=== PATIENT | female | born 1945 | race Caucasian/White ===

== ENCOUNTER → 2016-10-05 | Outpatient (CLI) | payer OTHER ==
[~2016-10-05] MED LIST: ALBUAER INH; ASPCH81X PO; ATOR-24 PO; ATOR-26 PO; ATV/1 PO; CALC600T9 PO; CHOL100010 PO; CYCL10TA6 PO; DICL1GEL12 EXT; EPP3/2 IM; GLUC10007 PO; IBUP-103 PO; LISI-461 PO; LISI-725 PO; MELO15TA10 PO; MULTTAB5 PO; ZNTT/150 PO
[2016-10-05 11:32] LABS: BLOOD UREA NITROGEN 24 mg/dl (7-18); CARBON DIOXIDE 28 mmol/L (21-32); CHLORIDE 104 mmol/L (98-107); CREATININE 0.89 mg/dl (0.60-1.20); GLUCOSE 107 mg/dl (70-99); POTASSIUM 4.1 mmol/L (3.5-5.1); SODIUM 139 mmol/L (136-145)
[2016-10-05 11:37] LABS: ESTIMATED AVERAGE GLUCOSE 114 mg/dl; HA1C FLAG Normal (Normal)
[2016-10-05 11:41] LABS: CALCIUM 9.7 mg/dl (8.5-10.1)
[2016-10-05 11:53] LABS: ALKALINE PHOSPHATASE 96 U/L (45-117); ALT/SGPT 34 U/L (12-78); AST/SGOT 22 U/L (15-37); CHOLESTEROL 175 mg/dl (0-200); CHOLESTEROL/HDL RATIO 2.1; HDL CHOLESTEROL 85 mg/dl; LDL CHOLESTEROL CALCULATED 70 mg/dl; TRIGLYCERIDES 101 mg/dl (0-150); VERY LOW DENSITY LIPOPROT CALC 20 mg/dl
== END | disposition home or self-care (01) ==
LOC: C.LABPBG 09:25
PROVIDERS: ATTEND Internal Medicine
DX: E78.5 Hyperlipidemia, unspecified (principal); R73.01 Impaired fasting glucose; I10 Essential (primary) hypertension; E66.01 Morbid (severe) obesity due to excess calories

== ENCOUNTER → 2016-12-01 | Outpatient (CLI) | payer OTHER | END | disposition home or self-care (01) | LOC: C.LABPBG 11:28 | PROVIDERS: ATTEND Physician Assistant Medical | DX: M79.676 Pain in unspecified toe(s) (principal) ==

== ENCOUNTER → 2017-04-25 | Day surgery (SDC) | payer OTHER ==
[2017-04-13 12:47] VITALS: Ht 168.9 cm; Wt 114.5 kg
[~2017-04-25] VITALS: Ht 168.9 cm; Wt 114.5 kg
[~2017-04-25] MED LIST changes: -ATOR-26 PO; +FENTANYL CITRATE INJ 50 MCG/1 ML 2 ML VIAL ONE; -GLUC10007 PO; -IBUP-103 PO; +LIDOCAINE HCL 2% 2 ML VIAL (20MG/ML) ONE; -LISI-725 PO; +MIDAZOLAM HCL 1 MG/ML 2ML VIAL ONE; +PROPOFOL IV EMULSION 10 MG/ML 20 ML VIAL IV ONE; +SODIUM CHLORIDE 0.9% 500ML 500 ML IV ONE
--- NOTE | 2017-04-25 13:12 | Endo History and Physical ---
History & Physical Date of Service: Apr 25, 2017. Chief Complaint: Screening Referring Physician: Dr. Bernard History of Present Illness 71 yo CF who presents for screening colonoscopy. Past Surgical History Hx Cardiac Surgery: No Hx Internal Defibrillator: No Hx Pacemaker: No Hx Abdominal Surgery: Yes (JUNIOR) Hx of Implantable Prosthesis: No Hx Post-Op Nausea and Vomiting: No Hx Cancer Surgery: No Hx Thoracic Surgery: No Hx Orthopedic: Yes (RT KNEE ARTHROSCOPY) Hx Urinary Tract Surgery: No Family History None Social History Smoking Status: Never Smoker Hx Substance Use: No Hx Alcohol Use: No Allergies Coded Allergies: BEE STING (Verified Allergy, Unknown, ANAPHYLAXIS, 04/13/17) Influenza Vaccines (Verified Allergy, Unknown, RED/HARD AT SITE, SOB AND DIFF. SWALLOWING, 04/13/17) Oxycodone (Verified Allergy, Unknown, NAUSEA, 04/13/17) Uncoded Allergies: DARVOCET (Allergy, Unknown, SHORTNESS OF BREATH, 10/25/15) Current Medications Reported Home Medications Medications Dose Route/Sig Max Daily Dose Days Date Category Vitamin D (Cholecalciferol) 1,000 Unit Tab 2 Tab PO QAM 04/13/17 Reported Zantac (Ranitidine HCl) 150 Mg Tab 150 Mg PO DAILY PRN 04/13/17 Reported Proventil Hfa (Albuterol Sulfate) 108 Mcg/Act Aer 2 Puff INH BID PRN 04/13/17 Reported Mobic (Meloxicam) 15 Mg Tab 15 Mg PO DAILY PRN 04/13/17 Reported Ativan (Lorazepam) 1 Mg Tab 1 Mg PO DAILY PRN 04/13/17 Reported Zestril (Lisinopril) 10 Mg Tab 10 Mg PO QAM 04/13/17 Reported Epipen (Epinephrine) 0.3 Mg/0.3 Ml Inj 0.3 Mg IM UD 04/13/17 Reported Voltaren 1% Top Gel (Diclofenac Sodium (Topical)) 1 % Gel 1 Dose EXT DIRECTED PRN 04/13/17 Reported Flexeril (Cyclobenzaprine Hcl) 10 Mg Tab 10 Mg PO TID PRN 04/13/17 Reported Calcium + D (Calcium Carbonate-Vitamin D) 1 Tab Tab 1 Tab PO QAM 04/13/17 Reported Lipitor (Atorvastatin Calcium) 40 Mg Tab 40 Mg PO QPM 04/13/17 Reported Aspirin Chewable (Aspirin) 81 Mg Chew 81 Mg PO QAM 04/13/17 Reported Centrum (Multiple Vitamins W/ Minerals) 1 Tab Tab 1 Tab PO QAM 10/25/15 Reported Vital Signs Weight (Kilograms): 114.55 Height (Feet): 5 Height (Inches): 6.5 Physical Exam General Appearance: WD/WN, no apparent distress Respiratory/Chest: Auscultation: breath sounds normal Cardiovascular: Heart Auscultation: RRR Abdomen: Bowel Sounds: normal Inspection & Palpation: soft, non-distended, no tenderness, guarding & rebound Assessment and Plan Assessment: 71 yo CF who presents for screening colonoscopy. Plan: Proceed with colonoscopy.
[2017-04-25 13:18] VITALS: TEMP 36.4
--- NOTE | 2017-04-25 14:04 | Discharge Instructions ---
Endoscopy Patient Instructions Date / Procedure(s) Performed Apr 25, 2017. Colonoscopy Allergy Information Coded Allergies: BEE STING (Verified Allergy, Unknown, ANAPHYLAXIS, 04/13/17) Influenza Vaccines (Verified Allergy, Unknown, RED/HARD AT SITE, SOB AND DIFF. SWALLOWING, 04/13/17) Oxycodone (Verified Allergy, Unknown, NAUSEA, 04/13/17) Uncoded Allergies: DARVOCET (Allergy, Unknown, SHORTNESS OF BREATH, 10/25/15) Discharge Date / Findings Apr 25, 2017. Internal hemorrhoids Medication Instructions Stopped Medication(s): ASA, vitamins OK to resume all medications today as prescribed Reported Home Medications Medications Dose Route/Sig Max Daily Dose Days Date Category Vitamin D (Cholecalciferol) 1,000 Unit Tab 2 Tab PO QAM 04/13/17 Reported Zantac (Ranitidine HCl) 150 Mg Tab 150 Mg PO DAILY PRN 04/13/17 Reported Proventil Hfa (Albuterol Sulfate) 108 Mcg/Act Aer 2 Puff INH BID PRN 04/13/17 Reported Mobic (Meloxicam) 15 Mg Tab 15 Mg PO DAILY PRN 04/13/17 Reported Ativan (Lorazepam) 1 Mg Tab 1 Mg PO DAILY PRN 04/13/17 Reported Zestril (Lisinopril) 10 Mg Tab 10 Mg PO QAM 04/13/17 Reported Epipen (Epinephrine) 0.3 Mg/0.3 Ml Inj 0.3 Mg IM UD 04/13/17 Reported Voltaren 1% Top Gel (Diclofenac Sodium (Topical)) 1 % Gel 1 Dose EXT DIRECTED PRN 04/13/17 Reported Flexeril (Cyclobenzaprine Hcl) 10 Mg Tab 10 Mg PO TID PRN 04/13/17 Reported Calcium + D (Calcium Carbonate-Vitamin D) 1 Tab Tab 1 Tab PO QAM 04/13/17 Reported Lipitor (Atorvastatin Calcium) 40 Mg Tab 40 Mg PO QPM 04/13/17 Reported Aspirin Chewable (Aspirin) 81 Mg Chew 81 Mg PO QAM 04/13/17 Reported Centrum (Multiple Vitamins W/ Minerals) 1 Tab Tab 1 Tab PO QAM 10/25/15 Reported Provider Instructions Activity Restrictions - No exercising or heavy lifting for 24 hours. - Do not drink alcohol the day of the procedure. - Do not drive a car or operate machinery until the day after the procedure. - Do not make any important decisions or sign important papers in 24 hours after the procedure. Following Day: - Return to full activity which may include returning to work/school. Diet Start your diet with liquids and light foods (jello, soup, juice, toast). Then eat your usual diet if not nauseated. Treatment For Common After Affects For mild abdominal pain, bloating, or excessive gas: - Rest - Eat lightly - Lie on right side Follow-Up Information Follow-up with Gray Bernard as scheduled Anesthesia Information What You Should Know You have had a procedure that required some medicine to reduce anxiety and discomfort. This treatment is called moderate sedation. After receiving the treatment, you may be sleepy, but you will be able to breathe on your own. The effects of the treatment may last for several hours. Follow these instructions along with Activity/Diet recommendations noted above: * Do NOT do anything where dizziness or clumsiness would be dangerous. * Rest quietly at home today, then you can be up and about tomorrow. * Have a responsible person stay with you the rest of today. * You may have had an I.V. today. If so, you may take the dressing off later today. Recommendations Call your doctor if: * Trouble breathing * Continuous vomiting for more than 24 hours * Temperature above 101 degrees * Severe abdominal pain or bloating * Pain not relieved by pain medicine ordered * There is increased drainage or redness from any incision * A large amount of rectal bleeding greater than 2-3 tablespoons. (If you had a polyp/s removed or have hemorrhoids, a small amount of blood - from the rectum is to be expected.) * You have any unanswered questions or concerns. IN THE EVENT OF A SERIOUS EMERGENCY, GO TO THE NEAREST EMERGENCY ROOM Your discharge instructions were prepared by provider Arnulfo Rodriguez. Patient Instructions Signature Page November Patient (or Guardian) Signature/Date: I have read and understand the instructions given to me by my caregivers. Caregiver/RN/Doctor Signature/Date: The above-named patient and/or guardian has received patient instructions on this date. + Original Patient Signature Page (only) stays with chart. Please make copy for patient.
--- NOTE | 2017-04-25 14:06 | Anesthesiology Progress Note ---
Anesthesia Post Op Note Date & Time Apr 25, 2017 at 14:06 Vital Signs Vital Signs Past 12 Hours Date Time Temp Pulse Resp B/P (MAP) Pulse Ox O2 Delivery O2 Flow Rate FiO2 04/25/17 13:18 36.4 74 18 119/77 (91) 98 Room Air Notes Mental Status: alert / awake / arousable, participated in evaluation Pt Amnestic to Procedure: Yes Nausea / Vomiting: adequately controlled Pain: adequately controlled Airway Patency, RR, SpO2: stable & adequate BP & HR: stable & adequate Hydration State: stable & adequate Anesthetic Complications: no major complications apparent
--- NOTE | 2017-04-25 14:11 | GI REPORT ---
Procedure Date: 04/25/2017 1:12 PM Procedure: Colonoscopy Indications: Screening for colorectal malignant neoplasm Medicines: Monitored Anesthesia Care Complications: No immediate complications. Estimated Blood Loss: Estimated blood loss: none. Procedure: Pre-Anesthesia Assessment: - Prior to the procedure, a History and Physical was performed, and patient medications and allergies were reviewed. The patient's tolerance of previous anesthesia was also reviewed. The risks and benefits of the procedure and the sedation options and risks were discussed with the patient. All questions were answered, and informed consent was obtained. Prior Anticoagulants: The patient has taken aspirin, last dose was 1 day prior to procedure. ASA Grade Assessment: III - A patient with severe systemic disease. After reviewing the risks and benefits, the patient was deemed in satisfactory condition to undergo the procedure. After I obtained informed consent, the scope was passed under direct vision. Throughout the procedure, the patient's blood pressure, pulse, and oxygen saturations were monitored continuously. The scope was introduced through the anus and advanced to the terminal ileum. The colonoscopy was performed without difficulty. The patient tolerated the procedure well. The quality of the bowel preparation was good. The terminal ileum, ileocecal valve, appendiceal orifice, and rectum were photographed. Findings: The perianal and digital rectal examinations were normal. Non-bleeding internal hemorrhoids were found during retroflexion. The hemorrhoids were small. Impression: - Non-bleeding internal hemorrhoids. - No specimens collected. Recommendation: - Resume previous diet. - Continue present medications. - No repeat colonoscopy due to age and the absence of advanced adenomas. - Return to primary care physician as previously scheduled. Arnulfo Rodriguez, 04/25/2017 2:10:49 PM This report has been signed electronically. Note Initiated On: 04/25/2017 1:12 PM I attest to the content of the Intraoperative Record and orders documented therein, exceptions below
[2017-04-25 14:31] VITALS: BP 117/73; PULSE 72; O2SAT 98
== END | disposition home or self-care (01) ==
LOC: C.GI 12:46
PROVIDERS: ATTEND Internal Medicine
DX: Z12.11 Encounter for screening for malignant neoplasm of colon (principal); K64.8 Other hemorrhoids; I10 Essential (primary) hypertension; F41.9 Anxiety disorder, unspecified; E66.9 Obesity, unspecified; Z68.41 Body mass index [BMI] 40.0-44.9, adult; Z88.5 Allergy status to narcotic agent; Z90.49 Acquired absence of other specified parts of digestive tract; Z88.7 Allergy status to serum and vaccine; Z79.899 Other long term (current) drug therapy; Z79.82 Long term (current) use of aspirin; Z98.42 Cataract extraction status, left eye

== ENCOUNTER → 2017-05-14 | Outpatient (CLI) | payer OTHER ==
[~2017-05-14] MED LIST changes: -FENTANYL CITRATE INJ 50 MCG/1 ML 2 ML VIAL ONE; -LIDOCAINE HCL 2% 2 ML VIAL (20MG/ML) ONE; -MIDAZOLAM HCL 1 MG/ML 2ML VIAL ONE; -PROPOFOL IV EMULSION 10 MG/ML 20 ML VIAL IV ONE; -SODIUM CHLORIDE 0.9% 500ML 500 ML IV ONE
[2017-05-14 13:00] LABS: ESTIMATED AVERAGE GLUCOSE 111 mg/dl; HA1C FLAG Normal (Normal)
[2017-05-14 17:54] LABS: ALT/SGPT 19 U/L (12-78); BLOOD UREA NITROGEN 18 mg/dl (7-18); BUN/CREATININE RATIO 24.7 (10-20); CALCIUM 9.2 mg/dl (8.5-10.1); CARBON DIOXIDE 29 mmol/L (21-32); CHLORIDE 105 mmol/L (98-107); CHOLESTEROL 184 mg/dl (0-200); CREATININE 0.72 mg/dl (0.60-1.20); GLUCOSE 89 mg/dl (70-99); POTASSIUM 4.1 mmol/L (3.5-5.1); SODIUM 139 mmol/L (136-145)
[2017-05-14 17:57] LABS: ALB/GLOB RATIO 0.9 (0.9-2); ALKALINE PHOSPHATASE 86 U/L (45-117); AST/SGOT 15 U/L (15-37); CHOLESTEROL/HDL RATIO 2.4; HDL CHOLESTEROL 77 mg/dl; LDL CHOLESTEROL CALCULATED 90 mg/dl; TRIGLYCERIDES 85 mg/dl (0-150); VERY LOW DENSITY LIPOPROT CALC 17 mg/dl
== END | disposition home or self-care (01) ==
LOC: C.LABPBG 10:53
PROVIDERS: ATTEND Internal Medicine
DX: E55.9 Vitamin D deficiency, unspecified (principal); R73.01 Impaired fasting glucose; E78.5 Hyperlipidemia, unspecified

== ENCOUNTER → 2017-07-25 | Outpatient (CLI) | payer OTHER ==
[~2017-07-25] MED LIST changes: +RANI150T85 PO; -ZNTT/150 PO
[2017-07-25 13:18] LABS: BLOOD UREA NITROGEN 21 mg/dl (7-18); CREATININE 0.75 mg/dl (0.60-1.20)
== END | disposition home or self-care (01) ==
LOC: C.LABPBG 10:19
PROVIDERS: ATTEND Internal Medicine
DX: R73.01 Impaired fasting glucose (principal); I10 Essential (primary) hypertension

== ENCOUNTER 2017-10-02 11:17 | Inpatient (IN) | payer OTHER ==
[~2017-10-02] VITALS: Ht 170.2 cm; Wt 116.2 kg
[2017-10-02] MEDS ORDERED: ASPIRIN 81 MG CHEW PO STA ×2 (11:36→13:41)
--- NOTE | 2017-10-02 11:46 | EMERGENCY ROOM VISIT NOTE ---
History Report prepared by Vianey: Patricio Amezcua Under the Supervision of: Dr. Angel Pérez M.D. First contact with patient: 11:29 Chief Complaint: STROKE SYMPTOMS Stated Complaint: NUMBNESS TO FACE AND HAND History of Present Illness The patient is a 71 year old female who presents to the Emergency Room with complaints of persistent though improving stroke symptoms starting this morning around 0930 (2 hours ago). The patient states that she has been having numbness on the right side of her face and numbness and tingling in her right fingers. She denies any numbness in her right leg or weakness in her right arm or leg. The patient additionally notes that for the past few days she has been getting dizzy while laying down or turning her head too quickly. Her family notes that the patient has not had any noticeable facial droop or speech difficulties. The patient notes that she took her blood pressure medication this morning, and she also took a muscle relaxer before the symptoms started. The patient states that she is not on any blood thinners other than a baby aspirin daily. She notes that she has lost a little bit of weight recently, so her blood pressure and cholesterol medications have been decreased. Source of History: patient Onset: 0930 Position: finger(s) (right side), other (right face) Quality: numbness Timing: other (persistent but improving) Associated Symptoms: No weakness Note: Associated symptoms: Dizziness and tingling in her fingers. Review of Systems See HPI for pertinent positives & negatives. A total of 10 systems reviewed and were otherwise negative. Past Medical & Surgical Medical Problems: (1) Melanoma (2) Right facial numbness (3) Sciatica Social History Smoking Status: Former Smoker Marital Status: Housing Status: lives with family Occupation Status: retired Current/Historical Medications Scheduled Atorvastatin (Lipitor), 40 MG PO QPM Calcium Carbonate-Vitamin D (Calcium + D), 1 TAB PO QAM Cholecalciferol (Vitamin D), 2 TAB PO QAM Clopidogrel Bisulfate (Clopidogrel), 75 MG PO QAM Epinephrine (Epipen), 0.3 MG IM UD Multiple Vitamins W/ Minerals (Centrum), 1 TAB PO QAM Scheduled PRN Diclofenac Sodium (Topical) (Voltaren 1% Top Gel), 1 DOSE EXT DIRECTED PRN for Pain Lorazepam (Ativan), 1 MG PO DAILY PRN for Anxiety Meclizine HCl (Meclizine HCl), 12.5-25 MG PO Q6H PRN for vertigo/dizziness Meloxicam (Mobic), 15 MG PO DAILY PRN for Pain Allergies Coded Allergies: BEE STING (Verified Allergy, Unknown, ANAPHYLAXIS, 04/13/17) Influenza Vaccines (Verified Allergy, Unknown, RED/HARD AT SITE, SOB AND DIFF. SWALLOWING, 04/13/17) Oxycodone (Verified Allergy, Unknown, NAUSEA, 04/13/17) Propoxyphene (Verified Allergy, Unknown, SHORTNESS OF BREATH, 10/02/17) Physical Exam Vital Signs Date Time Temp Pulse Resp B/P (MAP) Pulse Ox O2 Delivery O2 Flow Rate FiO2 10/02/17 13:27 66 18 142/75 96 Room Air 10/02/17 12:30 65 20 133/75 98 Room Air 10/02/17 12:11 74 20 130/76 95 Room Air 10/02/17 11:54 98 Room Air 10/02/17 11:40 74 10/02/17 11:22 36.7 74 20 184/114 92 Room Air Physical Exam GENERAL: Patient is in no acute distress. HEENT: No acute trauma, normocephalic atraumatic, mucous membranes moist, no nasal congestion, no scleral icterus. NECK: No stridor, no adenopathy, no meningismus, trachea is midline. LUNGS: Clear to auscultation bilaterally, no wheeze, no rhonchi, breath sounds equal. HEART: Subtle systolic murmur. Regular rate and rhythm, ABDOMEN: Soft, nontender, bowel sounds positive, no hernias, no peritonitis. EXTREMITIES: No cyanosis or edema, full range of motion of all the joints without pain or difficulty, no signs for acute trauma. NEUROLOGIC: Oriented x 3, no acute motor or sensory deficits, no focal weakness. No facial droop or speech slur. No pronator drift or cerebellar dysfunction. SKIN: No rash, no jaundice, no diaphoresis. Medical Decision & Procedures ER Provider Diagnostic Interpretation: Radiology results as stated below per my review and radiologist interpretation: CT OF THE HEAD WITHOUT CONTRAST CLINICAL HISTORY: Stroke. Facial and hand numbness. COMPARISON STUDY: No previous studies for comparison. CT DOSE: 569.73 mGy.cm TECHNIQUE: Helical axial images of the head were obtained without IV contrast. Automated exposure control was utilized for the study. A dose lowering technique was utilized adhering to the principles of ALARA. FINDINGS: No acute intracranial hemorrhage, midline shift or mass effect is present. Ventricular system is normal. Basilar cisterns are patent. There are no extra-axial collections. There are no findings to suggest acute dural sinus thrombosis or acute territorial infarct. Scattered white matter hypodensities favor small vessel disease. There are no significant calvarial abnormalities. Visualized portions of the sinuses and mastoid air cells are clear. IMPRESSION: No acute intracranial findings. Electronically signed by: Morris Myers M.D. 10/02/2017 12:09 PM Dictated Date/Time: 10/02/2017 12:06 PM CHEST ONE VIEW PORTABLE CLINICAL HISTORY: Stroke mental status change COMPARISON STUDY: No previous studies for comparison. FINDINGS: The bones soft tissues and hemidiaphragms are normal. The cardiomediastinal silhouette is normal. The lungs are clear. The pulmonary vasculature is normal. IMPRESSION: Negative chest. The above report was generated using voice recognition software. It may contain grammatical, syntax or spelling errors. Electronically signed by: Alfred Latham M.D. 10/02/2017 12:00 PM Dictated Date/Time: 10/02/2017 12:00 PM Laboratory Results Test 10/02/17 11:50 10/02/17 12:54 Erythrocyte Sedimentation Rate 33 mm/hr (0-21) Prothrombin Time 10.3 SECONDS (9.0-12.0) Prothromb Time International Ratio 1.0 (0.9-1.1) Activated Partial Thromboplast Time 27.6 SECONDS (21.0-31.0) Partial Thromboplastin Ratio 1.1 Troponin I < 0.015 ng/ml (0-0.045) C-Reactive Protein < 0.29 mg/dl (0-0.29) Urine Color YELLOW Urine Appearance CLEAR (CLEAR) Urine pH 5.0 (4.5-7.5) Urine Specific [place] 1.018 (1.000-1.030) Urine Protein NEG (NEG) Urine Glucose (UA) NEG (NEG) Urine Ketones NEG (NEG) Urine Occult Blood NEG (NEG) Urine Nitrite NEG (NEG) Urine Bilirubin NEG (NEG) Urine Urobilinogen NEG (NEG) Urine Leukocyte Esterase MODERATE (NEG) Urine WBC (Auto) 1-5 /hpf (0-5) Urine RBC (Auto) 0-4 /hpf (0-4) Urine Hyaline Casts (Auto) 0 /lpf (0-5) Urine Epithelial Cells (Auto) 10-20 /lpf (0-5) Urine Bacteria (Auto) NEG (NEG) Urine Opiates Screen NEG (NEG) Urine Methadone, Qualitative NEG (NEG) Urine Barbiturates NEG (NEG) Urine Phencyclidine (PCP) Level NEG (NEG) Ur Amphetamine/Methamphetamine NEG (NEG) MDMA (Ecstasy) Screen NEG (NEG) Urine Benzodiazepines Screen NEG (NEG) Urine Cocaine Metabolite NEG (NEG) Urine Marijuana (THC) NEG (NEG) Laboratory results reviewed by me. Medications Administered Medications (Trade) Dose Ordered Sig/Allison Route Start Time Stop Time Status Last Admin Dose Admin Aspirin (Aspirin Chew) 324 mg NOW STAT PO 10/02/17 11:36 10/02/17 11:38 DC 10/02/17 12:12 324 MG Lorazepam (Ativan Tab) 1 mg DAILY PRN PO 10/02/17 13:45 11/01/17 13:44 10/02/17 21:28 1 MG ECG Per My Interpretation Indication: other (stroke like symptoms) Rate (beats per minute): 74 Rhythm: normal sinus Findings: no ectopy, other (No ST elevation, baseline artifact, no PVC) ED Course 1129: The patient was evaluated in room C10. A complete history and physical exam was performed. 1136: Aspirin 324mg PO 1229: Discussed the patient's case with Dr. Aaliyah Barboza - [facility] Hospitalist. The patient will be evaluated for further management. 1235: I reevaluated the patient, and she was doing fine and has no symptoms. She will be evaluated for further management by the hospitalist. Medical Decision Differential diagnoses include: TIA, stroke, intracranial bleeding, medication reaction, electrolyte imbalance, anemia, and infection. There is no leukocytosis or concerning anemia. No significant electrolyte abnormality or kidney failure. EKG shows a sinus rhythm, no acute ischemia. Cardiac enzyme testing 1 is not consistent with acute cardiac injury. Brain CT shows no acute bleed or mass-effect. Chest x-ray does not show pneumonia or CHF. There is no coagulopathy. On exam, the patient had no focal neurologic deficits. She complained of minimal numbness to her right face and right fingers-the symptoms had markedly improved. Patient was given oral aspirin. She has done well here in the ED. She has had no recurrence of symptoms, no worsening of symptoms. The patient requires a hospital stay. I am concerned for TIA as the cause for her symptoms. A stroke workup is warranted. She is not a TPA candidate as her symptoms have markedly improved and as she has no findings on exam. I did speak with the patient and case management. The on-call hospitalist was consulted. Medication Reconcilliation Current Medication List: was personally reviewed by me Blood Pressure Screening Patient's blood pressure: Elevated blood pressure Monitored by the hospitalist Consults Time Called: 1222 Consulting Physician: Dr. Aaliyah SPARROW Hospitalist Returned Call: 1229 Discussed the patient's case with Dr. Aaliyah SPARROW Hospitalist. The patient will be evaluated for further management. Impression Primary Impression: Stroke-like symptoms Scribe Attestation The scribe's documentation has been prepared under my direction and personally reviewed by me in its entirety. I confirm that the note above accurately reflects all work, treatment, procedures, and medical decision making performed by me. Departure Information Dispostion Being Evaluated By Hospitalist Prescriptions Clopidogrel Bisulfate (Clopidogrel) 75 Mg Tab 75 MG PO QAM, #30 TAB 11 Refills Prov: Jero Camejo MD 10/04/17 Meclizine HCl (Meclizine HCl) 25 Mg Tab 12.5-25 MG PO Q6H Y for vertigo/dizziness, #30 TAB 0 Refills Prov: Jero Camejo MD 10/04/17 Referrals Gray Bernard M.D. (PCP) Patient Instructions My [facility] Stroke History Time Last Known Well 2 hours ago Stroke t-PA Criteria Reviewed Does NOT meet criteria for t-PA Reason t-PA Not Given Treatment not indicated
--- NOTE | 2017-10-02 12:02 | DIAGNOSTIC IMAGING REPORT ---
CHEST ONE VIEW PORTABLE CLINICAL HISTORY: Stroke mental status change COMPARISON STUDY: No previous studies for comparison. FINDINGS: The bones soft tissues and hemidiaphragms are normal. The cardiomediastinal silhouette is normal. The lungs are clear. The pulmonary vasculature is normal. IMPRESSION: Negative chest. The above report was generated using voice recognition software. It may contain grammatical, syntax or spelling errors. Electronically signed by: Alfred Latham M.D. 10/02/2017 12:00 PM Dictated Date/Time: 10/02/2017 12:00 PM
[2017-10-02 12:03] LABS: BASO % 0.6 %; BASO ABS # 0.03 K/uL (0-0.2); EOS % 2.6 %; EOS ABS # 0.13 K/uL (0-0.5); HEMATOCRIT 44.6 % (37-47); HEMOGLOBIN 14.7 g/dL (12.0-16.0); IG# 0.02 K/uL (0.00-0.02); LYMPH % 33.1 %; LYMPH ABS # 1.68 K/uL (1.2-3.4); MEAN CELL VOLUME 92.7 fL (80-100); MEAN CORPUSCULAR HEMOGLOBIN 30.6 pg (25-34); MEAN PLATELET VOLUME 10.4 fL (7.4-10.4); MONO % 6.3 %; MONO ABS # 0.32 K/uL (0.11-0.59); NEUT ABS # 2.89 K/uL (1.4-6.5); PLATELET COUNT 190 K/uL (130-400); RED CELL DISTRIBUTION WIDTH CV 14.8 % (11.5-14.5); RED CELL DISTRIBUTION WIDTH SD 50.3 fL (36.4-46.3); WHITE BLOOD COUNT 5.07 K/uL (4.8-10.8)
--- NOTE | 2017-10-02 12:10 | DIAGNOSTIC IMAGING REPORT ---
CT OF THE HEAD WITHOUT CONTRAST CLINICAL HISTORY: Stroke. Facial and hand numbness. COMPARISON STUDY: No previous studies for comparison. CT DOSE: 569.73 mGy.cm TECHNIQUE: Helical axial images of the head were obtained without IV contrast. Automated exposure control was utilized for the study. A dose lowering technique was utilized adhering to the principles of ALARA. FINDINGS: No acute intracranial hemorrhage, midline shift or mass effect is present. Ventricular system is normal. Basilar cisterns are patent. There are no extra-axial collections. There are no findings to suggest acute dural sinus thrombosis or acute territorial infarct. Scattered white matter hypodensities favor small vessel disease. There are no significant calvarial abnormalities. Visualized portions of the sinuses and mastoid air cells are clear. IMPRESSION: No acute intracranial findings. Electronically signed by: Morris Myers M.D. 10/02/2017 12:09 PM Dictated Date/Time: 10/02/2017 12:06 PM
[2017-10-02 12:13] LABS: PTT PATIENT 27.6 SECONDS (21.0-31.0)
[2017-10-02 12:18] LABS: BLOOD UREA NITROGEN 21 mg/dl (7-18); CALCIUM 9.1 mg/dl (8.5-10.1); CARBON DIOXIDE 27 mmol/L (21-32); CREATININE 0.82 mg/dl (0.60-1.20); GLUCOSE 97 mg/dl (70-99); POTASSIUM 4.2 mmol/L (3.5-5.1); SODIUM 139 mmol/L (136-145)
[2017-10-02] MEDS ORDERED: ACETAMINOPHEN 325 MG TAB PO PRN (13:45)
[2017-10-02] MEDS ORDERED: EPINEPHRINE ADULT AUTO-INJECT 0.3 MG SYR IM SCH (13:45)
[2017-10-02] MEDS ORDERED: PHARMACIST DISCHARGE MED REC CONSULT PRN (13:45)
[2017-10-02] MEDS ORDERED: ALUMINUM/MAGNESIUM/SIMETH (MAALOX MAX) 30 ML UDC PO PRN (13:45)
[2017-10-02] MEDS ORDERED: ZOLPIDEM TARTRATE 5 MG TAB PO PRN ×2 (13:45)
[2017-10-02] MEDS ORDERED: LORAZEPAM 1 MG TAB PO PRN (13:45)
[2017-10-02] MEDS ORDERED: MAGNESIUM HYDROXIDE SUSP 30 ML UDC PO PRN (13:45)
[2017-10-02] MEDS ORDERED: POLYETHYLENE (MIRALAX) 17 GM PACK PO PRN (13:45)
[2017-10-02] MEDS ORDERED: ONDANSETRON INJ 2 MG/ML 2 ML VIAL IV PRN (13:45)
--- NOTE | 2017-10-02 14:34 | History and Physical ---
History & Physical Date & Time of Service: Oct 02, 2017 at 14:24 Chief Complaint: Numbness To Face And Hand Primary Care Physician: Gray Bernard M.D. 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 Patient stated that within the last few days she has been having intermittent dizziness. As per patient had dizzy spells mainly happen when she moves her head quickly from one position to another especially while she is laying down in bed. At 9 AM today patient experienced numbness on the right lower part of her face. Associated with tingling in her right-hand fingers. Patient called her daughter who is a nurse here at our facility [facility] who advised her to come to the hospital for further evaluation. After presenting to the hospital her symptoms significantly improved. Blood pressure was elevated on arrival, 184/114 But neurologic symptoms improved. Denies any palpitation chest pain or shortness of breath. She denies any slurred speech or focal weakness. Patient does have dyslipidemia and hypertension, before today they were controlled on medications she also has Melanoblastoma in her right eye and she gets Injections every 6 weeks. As per patient there is no metastasis and she gets frequent MRIs for her chest and abdomen for surveillance. Past Medical/Surgical History Medical Problems: (1) Acute sciatica (2) Melanoma (3) Neural foraminal stenosis of lumbar spine (4) Right facial numbness (5) Sciatica Social History Smoking Status: Former Smoker Marital Status: Occupational Status: retired Allergies Coded Allergies: BEE STING (Verified Allergy, Unknown, ANAPHYLAXIS, 04/13/17) Influenza Vaccines (Verified Allergy, Unknown, RED/HARD AT SITE, SOB AND DIFF. SWALLOWING, 04/13/17) Oxycodone (Verified Allergy, Unknown, NAUSEA, 04/13/17) Uncoded Allergies: DARVOCET (Allergy, Unknown, SHORTNESS OF BREATH, 10/25/15) Home Medications Scheduled Aspirin (Aspirin Chewable), 81 MG PO QAM Atorvastatin (Lipitor), 40 MG PO QPM Calcium Carbonate-Vitamin D (Calcium + D), 1 TAB PO QAM Cholecalciferol (Vitamin D), 2 TAB PO QAM Epinephrine (Epipen), 0.3 MG IM UD Lisinopril (Zestril), 10 MG PO QAM Multiple Vitamins W/ Minerals (Centrum), 1 TAB PO QAM Scheduled PRN Diclofenac Sodium (Topical) (Voltaren 1% Top Gel), 1 DOSE EXT DIRECTED PRN for Pain Lorazepam (Ativan), 1 MG PO DAILY PRN for Anxiety Meloxicam (Mobic), 15 MG PO DAILY PRN for Pain Review of Systems Review of system Constitutional: No fever / no chills / no sweats / no weakness / no fatigue Eyes: no blurring of vision / no eye pain / no discharge / no redness ENT: no hearing loss / no epistaxis /no swallowing problems Respiratory: no cough / no wheezing / no SOB / no hemoptysis Cardiovascular: no Chest pain / no lower extremity edema / no palpitation Abdomen: no pain / no nausea / no vomiting / no constipation Musculoskeletal: no joint pain / no muscle pain / no joint swelling Genitourinary: no dysuria / no incontinence / no urinary retention Neurologic: no focal weakness /right side of the face and right hand numbness/ tingling / no ataxia Psychiatric: no depression symptoms / no anxiety / no insomnia Endocrine: no excessive thirst / no excessive urination Hematologic: no abnormal bleeding / no bruising / no LN swelling Skin: No rash / no pallor Physical Exam Vital Signs Date Time Temp Pulse Resp B/P (MAP) Pulse Ox O2 Delivery O2 Flow Rate FiO2 10/02/17 13:27 66 18 142/75 96 Room Air 10/02/17 12:30 65 20 133/75 98 Room Air 10/02/17 12:11 74 20 130/76 95 Room Air 10/02/17 11:54 98 Room Air 10/02/17 11:40 74 10/02/17 11:22 36.7 74 20 184/114 92 Room Air Physical examination General patient appears to be comfortable, not in acute distress HEENT: Atraumatic , normocephalic /no jaundice /no pallor /anicteric /no dry mucous membrane /normal external ear inspection Neck: Supple /no swelling /central trach Heart: S1/S2 normal/regular rate and rhythm/no gallop /no rub /no murmur Lungs: Clear to auscultation bilaterally/normal chest with expansion/no rhonchi/ no rales/no wheezing/no use of accessory muscles of respiration Abdomen: Soft/nontender/no guarding/no rebound/no organomegaly/no pulsatile mass Musculoskeletal: No swelling/no edema/no tenderness/normal range of motion Neuro exam: Awake alert oriented 3/cranial nerves II through XII appear to be intact/sensation intact/moves all extremities/no abnormal movements Psychiatric evaluation: No depressed mood/normal affect Skin: No rash on exposed skin area/no erythema Extremity: Normal pulse/no pitting edema/no clubbing or cyanosis Endocrine/lymphatic: No obvious lymphadenopathy /no lymphedema Diagnostics Laboratory Results Results Past 24 Hours Test 10/02/17 11:50 10/02/17 12:54 10/02/17 13:41 Range/Units White Blood Count 5.07 4.8-10.8 K/uL Red Blood Count 4.81 4.2-5.4 M/uL Hemoglobin 14.7 12.0-16.0 g/dL Hematocrit 44.6 37-47 % Mean Corpuscular Volume 92.7 80-100 fL Mean Corpuscular Hemoglobin 30.6 25-34 pg Mean Corpuscular Hemoglobin Concent 33.0 32-36 g/dl Platelet Count 190 130-400 K/uL Mean Platelet Volume 10.4 7.4-10.4 fL Neutrophils (%) (Auto) 57.0 % Lymphocytes (%) (Auto) 33.1 % Monocytes (%) (Auto) 6.3 % Eosinophils (%) (Auto) 2.6 % Basophils (%) (Auto) 0.6 % Neutrophils # (Auto) 2.89 1.4-6.5 K/uL Lymphocytes # (Auto) 1.68 1.2-3.4 K/uL Monocytes # (Auto) 0.32 0.11-0.59 K/uL Eosinophils # (Auto) 0.13 0-0.5 K/uL Basophils # (Auto) 0.03 0-0.2 K/uL RDW Standard Deviation 50.3 36.4-46.3 fL RDW Coefficient of Variation 14.8 11.5-14.5 % Immature Granulocyte % (Auto) 0.4 % Immature Granulocyte # (Auto) 0.02 0.00-0.02 K/uL Erythrocyte Sedimentation Rate 33 0-21 mm/hr Prothrombin Time 10.3 9.0-12.0 SECONDS Prothromb Time International Ratio 1.0 0.9-1.1 Activated Partial Thromboplast Time 27.6 21.0-31.0 SECONDS Partial Thromboplastin Ratio 1.1 Sodium Level 139 136-145 mmol/L Potassium Level 4.2 3.5-5.1 mmol/L Chloride Level 108 98-107 mmol/L Carbon Dioxide Level 27 21-32 mmol/L Anion Gap 3.0 3-11 mmol/L Blood Urea Nitrogen 21 7-18 mg/dl Creatinine 0.82 0.60-1.20 mg/dl Est Creatinine Clear Calc Drug Dose 84.7 ml/min Estimated GFR () 84.0 Estimated GFR (Non- 72.5 BUN/Creatinine Ratio 25.0 10-20 Random Glucose 97 70-99 mg/dl Calcium Level 9.1 8.5-10.1 mg/dl Magnesium Level 1.8 1.8-2.4 mg/dl Troponin I < 0.015 0-0.045 ng/ml Urine Color YELLOW Urine Appearance CLEAR CLEAR Urine pH 5.0 4.5-7.5 Urine Specific Lejunior 1.018 1.000-1.030 Urine Protein NEG NEG Urine Glucose (UA) NEG NEG Urine Ketones NEG NEG Urine Occult Blood NEG NEG Urine Nitrite NEG NEG Urine Bilirubin NEG NEG Urine Urobilinogen NEG NEG Urine Leukocyte Esterase MODERATE NEG Urine WBC (Auto) 1-5 0-5 /hpf Urine RBC (Auto) 0-4 0-4 /hpf Urine Hyaline Casts (Auto) 0 0-5 /lpf Urine Epithelial Cells (Auto) 10-20 0-5 /lpf Urine Bacteria (Auto) NEG NEG Urine Opiates Screen NEG NEG Urine Methadone, Qualitative NEG NEG Urine Barbiturates NEG NEG Urine Phencyclidine (PCP) Level NEG NEG Ur Amphetamine/Methamphetamine NEG NEG MDMA (Ecstasy) Screen NEG NEG Urine Benzodiazepines Screen NEG NEG Urine Cocaine Metabolite NEG NEG Urine Marijuana (THC) NEG NEG Impression Assessment and Plan 71 years old female with past medical history of hypertension, dyslipidemia and 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 Assessment: Hypertensive urgency Right-sided numbness/tingling, possible minor stroke Dyslipidemia Obesity due to caloric intake Neuroblastoma of right eye Plan Admit patient to telemetry Continue home meds except blood pressure medications for permissive hypertension , hold blood pressure medications MRA neck 2D echo with bubble study Empiric aspirin/statin MRI/MRA of the brain Consult neurologist as needed Check lipids and hemoglobin A1c to stratify patient's risk factors Heparin for DVT prophylaxis Resuscitation Status VTE Prophylaxis Will order VTE Prophylaxis: Yes
[2017-10-02] MEDS: SODIUM CHLORIDE 0.9% 1000ML 1,000 ML IV SCH (15:27)
[2017-10-02 15:28] VITALS: BP 135/82; PULSE 67; O2SAT 98; Ht 170.2 cm; Wt 116.2 kg
[2017-10-02 16:00] VITALS: O2SAT 98
[2017-10-02] MEDS: ENOXAPARIN 40 MG/0.4 ML SYR SC SCH (16:29)
[2017-10-02 19:28] VITALS: BP 116/73; PULSE 69; TEMP 36.6; O2SAT 97
[2017-10-02] MEDS: ATORVASTATIN 40 MG TAB PO SCH (19:57)
[2017-10-02 20:00] VITALS: O2SAT 98
--- NOTE | 2017-10-02 22:15 | DIAGNOSTIC IMAGING REPORT ---
MR ANGIOGRAPHY OF THE [place] NO CONTRAST CLINICAL HISTORY: Stroke. Right finger numbness. Right lip and jaw numbness. COMPARISON STUDY: None. A 3-D [id number] MR angiographic sequence of the [place] was performed. Both the source and projection images were reviewed. There is no evidence of major intracranial branch occlusion. There is no evidence of intracranial stenosis. There are no lesions suspicious for aneurysm. IMPRESSION: Unremarkable MR angiography of the [place]. Electronically signed by: Nehemiah Turner M.D. 10/02/2017 10:13 PM Dictated Date/Time: 10/02/2017 10:12 PM
--- NOTE | 2017-10-02 22:29 | DIAGNOSTIC IMAGING REPORT ---
MRI OF THE BRAIN WITHOUT CONTRAST CLINICAL HISTORY: Stroke RIGHT FINGER NUMBNESS, RIGHT LIP AND JAW NUMBNESS COMPARISON STUDY: Noncontrast head CT dated 10/06/2017 FINDINGS: Sagittal T1, axial diffusion, proton density and T2 weighted axial, coronal FLAIR, and axial T1-weighted images were acquired. No intra or extra-axial mass lesions are visualized Axial diffusion-weighted images reveal no evidence of acute or subacute infarction. There is no evidence of ventricular dilatation. Proton density T2-weighted and FLAIR images multiple scattered foci of increased T2 signal within the white matter, likely on a small vessel basis. There are no abnormal flow voids. Several sebaceous cysts are visualized within the scalp. There is minor mucosal thickening within the right sphenoid. IMPRESSION: 1. No evidence of acute or subacute infarction 2. Moderate white matter disease, statistically on a small vessel basis given the patient's age. 3. No evidence of intracranial mass on this noncontrast study Electronically signed by: Nehemiah Turner M.D. 10/02/2017 10:28 PM Dictated Date/Time: 10/02/2017 10:25 PM
[2017-10-02] MEDS ORDERED: GADAVIST IV PRN (22:30)
--- NOTE | 2017-10-02 22:45 | DIAGNOSTIC IMAGING REPORT ---
NECK MRA HISTORY: Right finger numbness. Right leg and jaw numbness Stroke TECHNIQUE: [id number] and gadolinium-enhanced MRA of the neck was performed both before and after the intravenous administration of contrast. All measurements were calculated based on NASCET criteria. The patient was injected with 11.5 cc of intravenous Gadavist. COMPARISON STUDY: None. FINDINGS: The aortic arch and proximal great vessels are widely patent. There is no significant stenosis, occlusion, or dissection identified within the bilateral common carotid, internal carotid, or vertebral arteries. IMPRESSION: No significant stenosis, occlusion, or dissection identified within the carotid or vertebral arteries. Electronically signed by: Nehemiah Turner M.D. 10/02/2017 10:44 PM Dictated Date/Time: 10/02/2017 10:42 PM
[2017-10-02 23:38] VITALS: BP 108/57; PULSE 73; TEMP 36.5; O2SAT 96
[2017-10-03] VITALS (13 sets, daily range): BP systolic 110–131; BP diastolic 64–85; PULSE 67–115; TEMP 36.4–36.7; O2SAT 93–97
[2017-10-03] MEDS: SODIUM CHLORIDE 0.9% 1000ML 1,000 ML IV SCH (03:45)
[2017-10-03 06:10] LABS: BASO % 0.8 %; BASO ABS # 0.04 K/uL (0-0.2); EOS % 5.6 %; EOS ABS # 0.27 K/uL (0-0.5); HEMATOCRIT 37.9 % (37-47); HEMOGLOBIN 12.8 g/dL (12.0-16.0); IG# 0.01 K/uL (0.00-0.02); LYMPH % 47.3 %; LYMPH ABS # 2.27 K/uL (1.2-3.4); MEAN CELL VOLUME 91.8 fL (80-100); MEAN CORPUSCULAR HGB CONC 33.8 g/dl (32-36); MEAN PLATELET VOLUME 10.4 fL (7.4-10.4); MONO % 11.9 %; MONO ABS # 0.57 K/uL (0.11-0.59); NEUT % 34.2 %; NEUT ABS # 1.64 K/uL (1.4-6.5); PLATELET COUNT 167 K/uL (130-400); RED CELL DISTRIBUTION WIDTH CV 14.7 % (11.5-14.5); RED CELL DISTRIBUTION WIDTH SD 49.6 fL (36.4-46.3)
[2017-10-03 06:37] LABS: ALBUMIN 2.9 gm/dl (3.4-5.0); CALCIUM 8.4 mg/dl (8.5-10.1); CREATININE 0.7 mg/dl (0.60-1.20); POTASSIUM 4.2 mmol/L (3.5-5.1)
[2017-10-03 06:57] LABS: HEMOGLOBIN A1C 5.3 % (4.5-5.6)
--- NOTE | 2017-10-03 07:41 | Clinical Documentation Query ---
CLINICAL DOCUMENTATION QUERY Dr. PILLAI, In your clinical opinion is this patient being managed for: ( ) morbid obesity with BMI 40.1 ( ) Not Agree ( ) Other explanation of clinical findings (Please Explain. If no explanation given, this would be considered a no response.) ( ) Unable to determine ( ) Need to Discuss (Please call CDS via extension or qliq. If no interaction occurs this is considered a no response.) BMI: A significantly high (>40) or significantly low (<19) BMI will impact the severity of illness and risk of mortality of your patient. However, the physician must document a correlating diagnosis in the medical record. Please clarify and document your clinical opinion in the progress notes and discharge summary. Terms such as "probable", "suspected", "likely", "questionable", "possible", or "still to be ruled out" are acceptable. IF IN AGREEMENT, YOU MUST DOCUMENT ABOVE DIAGNOSTIC STATEMENT IN DAILY PROGRESS NOTES AND DISCHARGE SUMMARY. This document is not part of the patient's record. Thank You, Kathy Perry, RN [phone]
[2017-10-03] MEDS ORDERED: ASPIRIN 325 MG ECTAB PO SCH (09:00)
--- NOTE | 2017-10-03 10:35 | ECHOCARDIOGRAM REPORT ---
*NOTICE TO RECEIVING [employer] This information is strictly Confidential and protected under [place] law. [place] law prohibits you from making any further disclosure of this information unless further disclosure is expressly permitted by the written consent of the person to whom it pertains or is authorized by law. A general authorization for the release of medical or other information is not sufficient for this purpose. Hospital accepts no responsibility if the information is made available to any other person, INCLUDING THE PATIENT. Interpretation Summary * Name: RUMA HAYNES Study Date: 10/02/2017 03:02 PM BP: 121/74 mmHg * Patient Location: [facility] named [facility] HR: 75 * : 1945 (M/d/yyyy) Gender: Female Height: 67 in * Age: 71 yrs Ethnicity: [place] Weight: 259 lb * Ordering Physician: Les London * Referring Physician: Self, Referred * Performed By: Leslie Inman RDCS * * Reason For Study: CEREBRAL ISCHEMIA/EMBOLUS * BSA: 2.3 m2 * No cardiac source of emboli noted. * -- Conclusions -- * There is mild concentric left ventricular hypertrophy. * Left ventricular systolic function is normal. * Grade I diastolic dysfunction, (abnormal relaxation pattern). * The interatrial septum is intact with no evidence for an atrial septal defect. * Right ventricular systolic pressure is normal. Procedure Details * A saline contrast injection was performed to assess for cardiac shunting. * The injection was performed through an intravenous line in the right arm. * The attending nurse who injected the saline contrast was RAVEN RICE. * A total of 20 cc of agitated saline was given. Left Ventricle * The left ventricle is normal in size. * There is mild concentric left ventricular hypertrophy. * Ejection Fraction = 60-65%. * Left ventricular systolic function is normal. * Grade I diastolic dysfunction, (abnormal relaxation pattern). * The left ventricular wall motion is normal. Right Ventricle * The right ventricle is grossly normal size. Atria * The left atrial size is normal. * Right atrial size is normal. * The interatrial septum is intact with no evidence for an atrial septal defect. * Injection of contrast documented no interatrial shunt. Mitral Valve * The mitral valve is grossly normal. * There is no mitral regurgitation noted. Tricuspid Valve * The tricuspid valve is not well visualized, but is grossly normal. * There is trace tricuspid regurgitation. * Right ventricular systolic pressure is normal. Aortic Valve * The aortic valve is normal in structure and function. * No hemodynamically significant valvular aortic stenosis. * There is no significant aortic regurgitation. Great Vessels * The aortic root is normal size. Pericardium/Pleural * There is no pericardial effusion. MMode 2D Measurements and Calculations IVSd 1.3 cm IVSs 1.4 cm LVIDd 2.8 cm LVIDs 1.8 cm LVPWd 1.4 cm LVPWs 1.6 cm IVS/LVPW 0.94 FS 35.1 % EDV(Teich) 29.3 ml ESV(Teich) 9.9 ml EF(Teich) 66.3 % EDV(cubed) 21.7 ml ESV(cubed) 5.9 ml EF(cubed) 72.7 % % IVS thick 5.8 % % LVPW thick 8.7 % LV mass(C)d 126.1 grams LV mass(C)dI 55.9 grams/m\S\2 LV mass(C)s 87.2 grams LV mass(C)sI 38.6 grams/m\S\2 SV(Teich) 19.4 ml SI(Teich) 8.6 ml/m\S\2 SV(cubed) 15.8 ml SI(cubed) 7.0 ml/m\S\2 Ao root diam 3.0 cm Ao root area 6.9 cm\S\2 LA dimension 3.3 cm LA/Ao 1.1 LVAd ap4 25.8 cm\S\2 LVLd ap4 8.4 cm EDV(MOD-sp4) 68.0 ml EDV(sp4-el) 67.6 ml LVAs ap4 13.6 cm\S\2 LVLs ap4 6.6 cm ESV(MOD-sp4) 23.1 ml ESV(sp4-el) 23.9 ml EF(MOD-sp4) 66.1 % EF(sp4-el) 64.7 % LVAd ap2 30.9 cm\S\2 LVLd ap2 8.3 cm EDV(MOD-sp2) 96.9 ml EDV(sp2-el) 97.4 ml LVAs ap2 17.3 cm\S\2 LVLs ap2 7.0 cm ESV(MOD-sp2) 37.1 ml ESV(sp2-el) 36.5 ml EF(MOD-sp2) 61.7 % EF(sp2-el) 62.6 % LVLd %diff -0.64 % EDV(MOD-bp) 81.2 ml LVLs %diff 5.0 % ESV(MOD-bp) 29.3 ml EF(MOD-bp) 63.9 % SV(MOD-sp4) 44.9 ml SI(MOD-sp4) 19.9 ml/m\S\2 SV(MOD-sp2) 59.8 ml SI(MOD-sp2) 26.5 ml/m\S\2 SV(MOD-bp) 51.9 ml SI(MOD-bp) 23.0 ml/m\S\2 SV(sp4-el) 43.7 ml SI(sp4-el) 19.4 ml/m\S\2 SV(sp2-el) 60.9 ml SI(sp2-el) 27.0 ml/m\S\2 Doppler Measurements and Calculations MV E max eitan 80.7 cm/sec MV A max eitan 85.4 cm/sec MV E/A 0.94 MV dec time 0.27 sec Ao V2 max 158.2 cm/sec Ao max PG 10.0 mmHg Ao max PG (full) 4.0 mmHg LV V1 max PG 6.0 mmHg LV V1 max 122.3 cm/sec TR max eitan 238.8 cm/sec
[2017-10-03] MEDS ORDERED: CLOPIDOGREL BISULFATE 75 MG TAB PO ONE (14:30)
[2017-10-03] MEDS: ENOXAPARIN 40 MG/0.4 ML SYR SC SCH (15:47)
[2017-10-03] MEDS: ATORVASTATIN 40 MG TAB PO SCH (20:54)
--- NOTE | 2017-10-03 20:54 | Progress Note ---
Subjective Date of Service: Oct 03, 2017. Subjective Pt evaluation today including: conversation w/ patient, conversation w/ family (daughters at bedside), physical exam, chart review, lab review, review of studies (MRI, MRA head/neck; echo, etc), conversation w/ fashion consultant (neuro), review of inpatient medication list Pain: none reported PO Intake: normal Voiding: no voiding problems no events overnight right facial numbness and numbness of 3 digits of right hand fully resolved reports some intermittent neck pain but none recently denies left arm numbness dizziness is true vertigo and occurs with head movements/sudden standing/etc she has had URI symptoms off/on for 2-3 weeks denies ANY new neuro symptoms Problem List Medical Problems: (1) Stroke-like symptoms Status: Acute Review of Systems Constitutional: No fever ENT: + nasal symptoms Respiratory: No shortness of breath Cardiac: No chest pain Abdomen: No pain Female : No dysuria Neurologic: + vertigo, No memory loss, No paralysis, No weakness, No numbness/ tingling (none today), No balance problems Objective Vital Signs Date Time Temp Pulse Resp B/P (MAP) Pulse Ox O2 Delivery O2 Flow Rate FiO2 10/03/17 19:10 36.6 115 20 113/68 (83) 97 Room Air 10/03/17 18:58 36.7 67 23 113/68 (83) 93 10/03/17 16:00 94 Room Air 10/03/17 15:08 36.7 70 23 131/79 (96) 94 10/03/17 12:24 36.5 73 20 129/85 (100) 95 Room Air 10/03/17 12:00 95 Room Air 10/03/17 08:00 95 Room Air 10/03/17 07:30 36.4 70 20 113/76 (88) 95 Room Air 10/03/17 04:00 96 Room Air 10/03/17 03:43 36.6 67 18 110/64 (79) 96 Room Air 10/03/17 00:00 96 Room Air 10/02/17 23:38 36.5 73 17 108/57 (74) 96 Room Air Physical Exam General Appearance: no apparent distress Eyes: + pertinent finding (no obvious horizontal nystagmus ) ENT: pharynx normal, + pertinent finding (no sinus pain/pressure) Neck: no JVD Respiratory/Chest: lungs clear, no respiratory distress, no accessory muscle use Cardiovascular: regular rate, rhythm, no gallop, no murmur Abdomen: normal bowel sounds, non tender, soft, no organomegaly Extremities: no pedal edema Neurologic/Psychiatric: account coordinator II-XII nml as tested, no motor/sensory deficits, alert, normal mood/affect, oriented x 3, + pertinent finding (no dysmetria w/ [id number] maneuver b/l ) Skin: no rash Laboratory Results Last 24 Hours Test 10/03/17 05:45 White Blood Count 4.80 K/uL Red Blood Count 4.13 M/uL Hemoglobin 12.8 g/dL Hematocrit 37.9 % Mean Corpuscular Volume 91.8 fL Mean Corpuscular Hemoglobin 31.0 pg Mean Corpuscular Hemoglobin Concent 33.8 g/dl Platelet Count 167 K/uL Mean Platelet Volume 10.4 fL Neutrophils (%) (Auto) 34.2 % Lymphocytes (%) (Auto) 47.3 % Monocytes (%) (Auto) 11.9 % Eosinophils (%) (Auto) 5.6 % Basophils (%) (Auto) 0.8 % Neutrophils # (Auto) 1.64 K/uL Lymphocytes # (Auto) 2.27 K/uL Monocytes # (Auto) 0.57 K/uL Eosinophils # (Auto) 0.27 K/uL Basophils # (Auto) 0.04 K/uL RDW Standard Deviation 49.6 fL RDW Coefficient of Variation 14.7 % Immature Granulocyte % (Auto) 0.2 % Immature Granulocyte # (Auto) 0.01 K/uL Sodium Level 140 mmol/L Potassium Level 4.2 mmol/L Chloride Level 110 mmol/L Carbon Dioxide Level 27 mmol/L Anion Gap 4.0 mmol/L Blood Urea Nitrogen 15 mg/dl Creatinine 0.70 mg/dl Est Creatinine Clear Calc Drug Dose 99.2 ml/min Estimated GFR () 101.7 Estimated GFR (Non- 87.8 BUN/Creatinine Ratio 21.6 Random Glucose 87 mg/dl Estimated Average Glucose 105 mg/dl Hemoglobin A1c 5.3 % Calcium Level 8.4 mg/dl Magnesium Level 1.8 mg/dl Total Bilirubin 0.7 mg/dl Aspartate Amino Transf (AST/SGOT) 14 U/L Alanine Aminotransferase (ALT/SGPT) 17 U/L Alkaline Phosphatase 77 U/L Total Protein 6.0 gm/dl Albumin 2.9 gm/dl Globulin 3.1 gm/dl Albumin/Globulin Ratio 0.9 Triglycerides Level 81 mg/dl Cholesterol Level 147 mg/dl HDL Cholesterol 64 mg/dl LDL Cholesterol, Calculated 67 mg/dl VLDL Cholesterol, Calculated 16 mg/dl Cholesterol/HDL Ratio 2.3 Hepatitis C Antibody Screen NEG Assessment and Plan 71yo female with: 1. likely TIA with numbness of right lower face and right hand (3 fingers) - no evidence of stroke process on MRI brain. MRA head/neck neg for vascular disease. Echo w/o source of embolus. Tele w/o a. fib overnight. Lipids controlled. No evidence of T2DM. Since TIA occurred on 81mg of aspirin daily would recommend changing from aspirin to plavix 75mg daily for secondary prevention. Will also arrange outpatient 30-day event monitor to exclude PAF as the potential cause of this event. 2. morbid obesity with BMI 40 - family reports patient has lost 75-100 pounds in the last couple of years; continue weight loss efforts. 3. HTN - controlled. 4. lipids - controlled with current statin. 5. vertigo - has had URI symptoms in the last few weeks; suspect this is a viral process involving the inner ear. Meclizine prn. Nothing on MRI brain to suggest the vertigo is central in origin. 6. await PT, OT evals 7. neurology consult first thing in am likely d/c home tomorrow AM Discharge planning: home
[2017-10-03] MEDS ORDERED: MECLIZINE HCL 12.5 MG TAB PO PRN (21:00)
[2017-10-04 04:38] VITALS: BP 114/68; PULSE 71; TEMP 36.9; O2SAT 96
[2017-10-04 06:34] LABS: CREATININE 0.79 mg/dl (0.60-1.20); POTASSIUM 4.3 mmol/L (3.5-5.1)
[2017-10-04 07:09] VITALS: BP 110/75; PULSE 73; TEMP 36.6; O2SAT 95
[2017-10-04] MEDS ORDERED: CLOPIDOGREL BISULFATE 75 MG TAB PO SCH (09:00)
--- NOTE | 2017-10-04 09:08 | Neurology Consultation ---
Neurology Consultation Date of Consultation: Oct 04, 2017. Attending Physician: Jero Camejo MD Primary Care Physician: Gray Bernard M.D. Reason for Consultation: TIA History of Present Illness Source: patient, hospital records This is a 71-year-old female who presents with transient right lower face and right finger numbness and tingling. She reports that she woke up the morning of presentation in her normal state of health. Around 9 or 930 she started to notice a sudden onset of numbness of her right lower face and tingling of her second through fourth fingers on the right hand. No pain in association. Did have a mild which she considered her normal headache that morning that resolved. She reports that it lasted most of the day and resolved sometime in the evening. She denied any other symptoms. No visual changes. No trouble with her speech or swallowing. No trouble walking. No weakness. No clumsiness of the hand. No chest pain or shortness of breath. No heart palpitations. She reports that for a few days she was having some dizziness with head turning or laying down and had a recent upper respiratory infection which could have contributed. Unrelated the patient does report some ongoing muscular type neck pain with no radicular or radiating quality to it. Patient does normally take daily aspirin. She reports that typically her blood pressure is well controlled but on presentation her blood pressure is 184/114. Echocardiogram noted mild left ventricular hypertrophy and grade 1 diastolic dysfunction likely consistent with history of hypertension MRI of the brain report and images reviewed by myself. The patient had mild to moderate subcortical T2 hyperintensities MRA of the head and neck was unremarkable likely consistent with small vessel ischemic disease. MRA of the head and neck was unremarkable Total cholesterol 147, LDL 67, HDL 64, triglycerides 81, hemoglobin A1c 5.3. Past Medical/Surgical History Medical Problems: (1) Stroke-like symptoms Status: Acute Past medical history significant for hypertension and dyslipidemia. 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 Family History Reports that father had a heart attack at an elderly age. No other family members with stroke or heart attack Social History Patient is . Normally independent her activities of daily living. Daughter is a nurse at the hospital. Denies any tobacco or alcohol use. No illegal drug use. Marital Status: Housing Status: lives with family Occupation Status: retired Allergies Coded Allergies: BEE STING (Verified Allergy, Unknown, ANAPHYLAXIS, 04/13/17) Influenza Vaccines (Verified Allergy, Unknown, RED/HARD AT SITE, SOB AND DIFF. SWALLOWING, 04/13/17) Oxycodone (Verified Allergy, Unknown, NAUSEA, 04/13/17) Propoxyphene (Verified Allergy, Unknown, SHORTNESS OF BREATH, 10/02/17) Current Inpatient Medications Current Inpatient Medications Medications (Trade) Dose Ordered Sig/Allison Route Start Time Stop Time Status Last Admin Dose Admin Atorvastatin Calcium (Lipitor Tab) 40 mg QPM PO 10/02/17 21:00 11/01/17 20:59 10/03/17 20:54 40 MG Lorazepam (Ativan Tab) 1 mg DAILY PRN PO 10/02/17 13:45 11/01/17 13:44 10/02/17 21:28 1 MG Enoxaparin Sodium (Lovenox Inj) 40 mg Q24H SC 10/02/17 16:00 11/01/17 15:59 10/03/17 15:47 40 MG Acetaminophen (Tylenol Tab) 650 mg Q4H PRN PO 10/02/17 13:45 11/01/17 13:44 Al Hydrox/Mg Hydrox/Simethicone (Maalox Max Susp) 15 ml Q4H PRN PO 10/02/17 13:45 11/01/17 13:44 Magnesium Hydroxide (Milk Of Magnesia Susp) 30 ml Q12H PRN PO 10/02/17 13:45 11/01/17 13:44 Zolpidem Tartrate (Ambien Tab) 5 mg HSZ PRN PO 10/02/17 13:45 11/01/17 13:44 Ondansetron HCl (Zofran Inj) 4 mg Q6H PRN IV 10/02/17 13:45 11/01/17 13:44 Polyethylene (Miralax Powder Packet) 17 gm DAILY PRN PO 10/02/17 13:45 11/01/17 13:44 Miscellaneous Information (Pharmacist Discharge Med Rec Consult) 1 ea UD PRN N/A 10/02/17 13:45 11/01/17 13:44 Gadobutrol (Gadavist) 11.5 mmol UD PRN IV 10/02/17 22:30 10/06/17 22:29 Clopidogrel Bisulfate (plAVix TAB) 75 mg QAM PO 10/04/17 09:00 11/03/17 08:59 10/04/17 07:57 75 MG Meclizine HCl (Antivert Tab) 12.5 mg Q6H PRN PO 10/03/17 21:00 11/02/17 20:59 Review of Systems Complete review of systems otherwise negative except for the above-noted in HPI Physical Exam Vital Signs (Past 24 Hrs): Date Time Temp Pulse Resp B/P (MAP) Pulse Ox O2 Delivery O2 Flow Rate FiO2 10/04/17 07:09 36.6 73 19 110/75 (87) 95 Room Air 10/04/17 04:38 36.9 71 17 114/68 (83) 96 Room Air 10/04/17 04:00 Room Air 10/04/17 00:01 Room Air 10/03/17 23:24 36.4 71 18 115/69 (84) 95 Room Air 10/03/17 20:00 97 Room Air 10/03/17 19:10 36.6 115 20 113/68 (83) 97 Room Air 10/03/17 18:58 36.7 67 23 113/68 (83) 93 10/03/17 16:00 94 Room Air 10/03/17 15:08 36.7 70 23 131/79 (96) 94 10/03/17 12:24 36.5 73 20 129/85 (100) 95 Room Air 10/03/17 12:00 95 Room Air Gen.: Patient is alert and oriented in no acute distress lying in bed Heart: Regular rate and rhythm Extremities: No gross deformities or rashes noted Neurological examination: Mental status: Patient is alert and oriented to person place and time. Able to give his own history. Attention concentration normal for the situation. Remote and recent memory intact Speech is fluent without any dysarthria or aphasia noted Cranial nerves: Funduscopic examination was difficult to visualize, but no papilledema. Pupils equally round and reactive to light. Extraocular muscles intact without nystagmus. No facial asymmetry noted. Facial sensation intact. Tongue midline. Good palatal elevation. Good shoulder shrug bilaterally. Hearing grossly intact voice. Strength: 5/5 both proximal and distal in all extremities. No arm drift.Tone is normal. Sensation: Grossly intact to light touch in all extremities Deep tendon reflexes: +1 in bilateral biceps and patellar. Coordination: Patient has good finger to nose without dysmetria. Station within the bed is normal. Laboratory Results Past 24 Hours: 10/04/17 05:27 Test 10/04/17 05:27 Anion Gap 2.0 mmol/L (3-11) Est Creatinine Clear Calc Drug Dose 87.3 ml/min Estimated GFR () 87.9 Estimated GFR (Non- 75.8 BUN/Creatinine Ratio 22.0 (10-20) Calcium Level 9.0 mg/dl (8.5-10.1) Imaging As noted above in HPI Impression This is a 71-year-old female with signs and symptoms concerning for TIA consisting of right lower facial numbness and right hand finger tingling lasting less than 24 hours. Unclear if dizziness/vertigo symptoms are related but may be a separate issue. No residual neurological deficits at this time. Known stroke risk factors include hypertension and dyslipidemia. Plan Agree with changing antiplatelet from aspirin to Plavix for secondary stroke prevention. Agree with 30 day cardiac event monitor to rule out paroxysmal A. fib as this would change her medical management if she did have A. fib. Since the patient's blood pressure has been running recently systolically in the 110's without any blood pressure medication, recommend holding blood pressure medication for now. Encouraged patient to monitor her blood pressure at home daily and if she starts having regular blood pressure above 130's, to follow-up with primary care physician regarding treatment of hypertension. Follow-up PT/OT recommendations for discharge planning. Patient would likely benefit from outpatient physical therapy regarding her muscular type neck pain. Avoid hypotension and dehydration Stroke risk factor modifications and recommendations: Blood pressure recommendations 130/80-110/70 (at goal) Total cholesterol goal 100- 200 and LDL goal less than 100 (at goal) Hemoglobin A1c goal less than 7 (at goal) Encourage cardiovascular exercise at least 3 times a week for 30 minutes. Follow-up in neurology clinic in 1-2 month with our PA for post stroke hospital follow-up and to go over results of monitoring analyst. No neurological barriers to discharge today. Went over stroke signs and symptoms with the patient. If there is any sudden new strokelike symptoms, recommended returning to the emergency room for further evaluation. Thank you for allowing me to participate in this patient's care. If there is any questions or concerns, feel free to call/page me.
[2017-10-04] MEDS ORDERED: PLV75 PO (09:57)
[2017-10-04] MEDS ORDERED: ANT25 PO (09:57)
--- NOTE | 2017-10-04 10:13 | Discharge Instructions ---
Discharge Instructions Date of Service Oct 04, 2017. Admission Reason for Admission: Numbness To Face And Hand Discharge Discharge Diagnosis / Problem: probable "TIA" (transient ischemic attack) Discharge Goals Goal(s): Learn about illness, Diagnostic testing, Therapeutic intervention Activity Recommendations Activity Limitations: as noted below While you are recovering from the vertigo I would recommend taking it easy for the next few days (avoid heavy exertional activities - indoor chores, outdoor chores/work, etc). I would not drive until your vertigo is completely resolved and you are no longer taking the meclizine. . Instructions / Follow-Up Instructions / Follow-Up From Dr. Camejo - 1. You were treated for a "TIA" (transient ischemic attack) while hospitalized. This is NOT the same thing as a stroke; however, it is a known risk factor for a future stroke event. TIA is a temporary neurological symptom that resolves on its own. Your risk factors for TIA include history of high blood pressure and high cholesterol. Your "TIA" work-up was completely normal. The last test we want to complete is the 30-day event monitor. This will be mailed to your home with instructions on its use. The results will go to your primary care doctor. We are looking for a. fib, an irregular heart rhythm that increases a person's chances of TIA or stroke. At this time we are recommending that you STOP your aspirin and in its place start PLAVIX 75mg once daily. Hopefully the plavix will prevent any future TIA or stroke event. 2. The vertigo is likely coming from an inner ear infection from a recent viral infection. This is typically self-limited over the course of a few days. Use caution with sudden head movements, etc. You may take the meclizine, 12.5 (up to 25mg if needed) every 6 hours as needed for vertigo/dizziness. 3. The plavix and meclizine were called in to [facility] for you. 4. During your stay your blood pressures were actually on the low end of normal WITHOUT any blood pressure medication. Because of your recent weight loss you may not need your blood pressure medication any longer. Please STOP your lisinopril at this time and follow-up next week with Dr. Bernard. 5. Lastly, with respect to your neck issues, please follow-up with Dr. Bernard for this. You may take tylenol and/or meloxicam as previously prescribed for the discomfort. Try some heat as well. 6. Risk Factors for Stroke and "TIA": You can reduce your chances of stroke by working with your medical provider to adopt a healthy lifestyle. Some specific ways to lower your chance of stroke are: * If you are a smoker, now is the time to stop smoking cigarettes * If you are diabetic, improve the control of your blood sugars * Avoid excessive amounts of alcohol * Control high blood pressure * Lose weight if you are overweight * Be sure to lead an active lifestyle * Eat a healthy diet low in salt, cholesterol and fat You should know about other risk factors for stroke that you are unable to control. These include: * Age 55 years or older * Male gender * Certain racial groups: , or / * Family History of Stroke, Mini stroke or Heart Attack * Sickle Cell Disease Follow-up - Please see Dr. Bernard as scheduled. Return to [facility] if - * you develop recurrent numbness/tingling of any limb, your face, etc * you develop difficulty with moving your arms or legs * you develop speech difficulty or trouble swallowing * you have trouble with your balance * any other concerns Current Hospital Diet Patient's current hospital diet: Regular Diet Discharge Diet Recommended Diet: AHA Diet (Heart Healthy) Procedures Procedures Performed: MRI brain - no evidence of stroke. MRA head & neck - blood vessels in the head/neck were completely normal. echocardiogram - normal heart function. CAT scan of the brain - normal. No study showed any evidence of sinus infection. Pending Studies Studies pending at discharge: no Laboratory Results Hemoglobin A1c Test 10/03/17 05:45 Range/Units Estimated Average Glucose 105 mg/dl Hemoglobin A1c 5.3 4.5-5.6 % Lipid Panel Test 10/03/17 05:45 Range/Units Triglycerides Level 81 0-150 mg/dl Cholesterol Level 147 0-200 mg/dl HDL Cholesterol 64 mg/dl Cholesterol/HDL Ratio 2.3 LDL Cholesterol, Calculated 67 mg/dl Medical Emergencies . Who to Call and When: Medical Emergencies: Call 911 immediately if you experience any of the following warning signs and symptoms of Stroke: * Sudden numbness or weakness of the face, arm or leg, especially on one side of the body * Sudden confusion, trouble speaking or understanding * Sudden trouble seeing in one or both eyes * Sudden trouble walking, dizziness, loss of balance or coordination * Sudden severe headache with no cause Do not delay calling 911 if you experience any warning signs or symptoms of a stroke. Delay in seeking medical attention may affect what treatments can be given to you. . Non-Emergent Contact Non-Emergency issues call your: Primary Care Provider Call Non-Emergent contact if: temperature is above 100.5, you have any medication questions . . "Provider Documentation" section prepared by Jero Camejo. . Stroke Core Measures Reason no t-PA for Stroke: Treatment not indicated Reason no antithrom by day 2: Treatment provided - N/A Reason no antithrom at D/C: Treatment provided - N/A Reason no statin at D/C: Treatment provided - N/A Reason no anticoag w/a fib: Treatment not indicated
[2017-10-04 10:28] VITALS: BP 110/75; PULSE 73; TEMP 36.6; O2SAT 95
--- NOTE | 2017-10-04 11:13 | Pharmacy Progress Note ---
Pharmacist Stroke Counseling Date of Service Oct 04, 2017. Scope Pharmacy has been consulted to provide medication discharge counseling for this patient admitted with transient ischemic attack as per the Pharmacist Discharge Counseling for Stroke Patients Protocol. Action The above medications, specifically ones for stroke treatment/prophylaxis, have been reviewed in detail with the patient and/or patient customer assistance representative(s) prior to discharge. This includes indication, common adverse reactions, drug interactions, and medication administration. Medication counseling has been employed using the teach-back method to ensure understanding. Outcome The patient have demonstrated understanding of the medications. Please note, they are aware that the pharmacist will call them within 72 hours post-discharge to confirm that the appropriate medications are being taken and answer any further medication related questions the patient might have at that time. Contact information Individual to be contacted: November Relationship to patient : self Phone number: [phone] Best time to call: late morning Additional comments: * It was a pleasure to talk with Karlene. She asked if any of her medication could cause hair loss. It is unlikely that her current medication is causing alopecia. Other possible causes of alopecia could include hypothyroidism and drastic changes in diet. * Looking further into it, ~1% of patients experience alopecia with lisinopril. That medication has been discontinued from her med list. On follow up call, please let her know that there is a small chance the lisinopril could have caused her alopecia. Thank you for allowing pharmacy to be involved in the care of this patient. Please call [phone] or [phone] with any additional questions
--- NOTE | 2017-10-05 13:38 | Pharmacy Progress Note ---
Pharmacist Post D/C Phone Note Date of phone call: Oct 05, 2017. Individual with whom pharmacist spoke to: Patient The following questions were reviewed during the phone call with responses listed below each: Can you tell me the medications that you are currently taking as well as when and how you take each medication? - Medications Dose Route/Sig Max Daily Dose Days Date Category Clopidogrel (Clopidogrel Bisulfate) 75 Mg Tab 75 Mg PO QAM 10/04/17 Rx Meclizine HCl 25 Mg Tab 12.5-25 Mg PO Q6H PRN 10/04/17 Rx Vitamin D (Cholecalciferol) 1,000 Unit Tab 2 Tab PO QAM 04/13/17 Reported Mobic (Meloxicam) 15 Mg Tab 15 Mg PO DAILY PRN 04/13/17 Reported Ativan (Lorazepam) 1 Mg Tab 1 Mg PO DAILY PRN 04/13/17 Reported Epipen (Epinephrine) 0.3 Mg/0.3 Ml Inj 0.3 Mg IM UD 04/13/17 Reported Voltaren 1% Top Gel (Diclofenac Sodium (Topical)) 1 % Gel 1 Dose EXT DIRECTED PRN 04/13/17 Reported Calcium + D (Calcium Carbonate-Vitamin D) 1 Tab Tab 1 Tab PO QAM 04/13/17 Reported Lipitor (Atorvastatin Calcium) 40 Mg Tab 40 Mg PO QPM 04/13/17 Reported Centrum (Multiple Vitamins W/ Minerals) 1 Tab Tab 1 Tab PO QAM 10/25/15 Reported When have you missed any doses of your medications? - No What side effects are you having from your medications? - none What questions do you have about your medications? - none What problems are you having obtaining your medications? - none When is your next appointment with your primary care doctor? - May 2nd Additional comments: - no additional comments or concerns. Pt is tolerating meclizine very well- not feeling dizzy. As per the Pharmacist Discharge Counseling for Stroke Patients Protocol, this phone call has been completed within 72 hours of discharge. Thank you for allowing us to be involved in the care of this patient.
--- NOTE | 2017-10-07 20:49 | Discharge Summary ---
Discharge Summary Date of Service Oct 07, 2017. Discharge Summary Admission Date: Oct 02, 2017 at 13:47 Discharge Date: Oct 04, 2017 Discharge Disposition: Home Principal Diagnosis: TIA Problems/Secondary Diagnoses: 1. acute vertigo - likely viral induced labrynthitis 2. h/o hypertension - resolved with weight loss 3. hyperlipidemia 4. morbid obesity - BMI 40 5. melanoblastoma of right eye Procedures: 1. echocardiogram - * -- Conclusions -- * There is mild concentric left ventricular hypertrophy. * Left ventricular systolic function is normal. * Grade I diastolic dysfunction, (abnormal relaxation pattern). * The interatrial septum is intact with no evidence for an atrial septal defect. * Right ventricular systolic pressure is normal. * No cardiac source of emboli noted. 2. MRI brain - IMPRESSION: 1. No evidence of acute or subacute infarction. 2. Moderate white matter disease, statistically on a small vessel basis given the patient's age. 3. No evidence of intracranial mass on this noncontrast study. 3. MRA head/neck - no evidence of occlusion, aneurysm, or dissection. 4. CT head negative for acute process. Consultations: neurology - Jaci Napoles, DO PT, OT, speech Medication Reconciliation New Medications: Clopidogrel Bisulfate (Clopidogrel) 75 Mg Tab 75 MG PO QAM, #30 TAB 11 Refills Meclizine HCl (Meclizine HCl) 25 Mg Tab 12.5-25 MG PO Q6H PRN for vertigo/dizziness, #30 TAB 0 Refills Continued Medications: Atorvastatin (Lipitor) 40 Mg Tab 40 MG PO QPM Calcium Carbonate-Vitamin D (Calcium + D) 1 Tab Tab 1 TAB PO QAM Cholecalciferol (Vitamin D) 1,000 Unit Tab 2 TAB PO QAM Diclofenac Sodium (Topical) (Voltaren 1% Top Gel) 1 % Gel 1 DOSE EXT DIRECTED PRN for Pain Epinephrine (Epipen) 0.3 Mg/0.3 Ml Inj 0.3 MG IM UD Lorazepam (Ativan) 1 Mg Tab 1 MG PO DAILY PRN for Anxiety Meloxicam (Mobic) 15 Mg Tab 15 MG PO DAILY PRN for Pain Multiple Vitamins W/ Minerals (Centrum) 1 Tab Tab 1 TAB PO QAM Discontinued Medications: Aspirin (Aspirin Chewable) 81 Mg Chew 81 MG PO QAM Lisinopril (Zestril) 10 Mg Tab 10 MG PO QAM Discharge Exam Physical Exam: General Appearance: no apparent distress, + obese Eyes: PERRL, + pertinent finding (no nystagmus ) ENT: pharynx normal Neck: no JVD Respiratory/Chest: lungs clear, no respiratory distress, no accessory muscle use Cardiovascular: regular rate, rhythm, no gallop, no murmur, normal peripheral pulses Abdomen / GI: normal bowel sounds, non tender, soft, no organomegaly Extremities: no pedal edema Neurologic/Psychiatric: planning supervisor II-XII nml as tested, no motor/sensory deficits , alert, normal mood/affect, normal reflexes, oriented x 3 Skin: no rash Hospital Course HISTORY OF PRESENT ILLNESS: 71 year old female with past medical history of hypertension, dyslipidemia and melanoblastoma of her right eye who presented to the ER with right sided numbness. Patient stated that within the last few days she had been having intermittent dizziness. As per patient she had dizzy spells when she moved her head quickly from one position to another especially while she was laying down in bed. At 9 AM on the day of admission she experienced numbness on the right lower part of her face. This was associated with tingling in her right-hand (digits 2 -4). Patient called her daughter who advised her to come to the hospital for further evaluation. After presenting to the hospital her symptoms significantly improved. Blood pressure was elevated on arrival, 184/114. She denied any slurred speech or focal weakness. Initial head CT was negative for ICH or acute stroke. HOSPITAL COURSE: During her stay the patient's numbness fully resolved. She underwent an extensive TIA work-up including echocardiogram, MRI brain, MRA head/neck, telemetry, and lab studies. Her entire work-up was normal. Telemetry failed to show atrial fibrillation. Lipids were controlled with LDL < 70. Hemoglobin a1c was normal with no evidence of pre-DM or DM. Since her TIA occurred on 81mg of aspirin daily neurology recommended changing the aspirin to plavix 75mg daily for secondary prevention. She will remain on statin therapy. In addition, an outpatient 30-day event monitor will be arranged to exclude PAF as the potential cause of this event. She was seen in consult by PT, OT, and speech. All three modalities cleared her for home. Meclizine was prescribed for her acute vertigo. This was likely from a viral- induced labrynthitis as she had been battling a viral URI for several weeks prior to admission. Lastly, the patient was advised to STOP her lisinopril as all of her blood pressures during her stay were either NORMAL or LOW-NORMAL. She was asked to check her BPs at home and follow-up with her PCP for this. Total Time Spent: Greater than 30 minutes This includes examination of the patient, discharge planning, medication reconciliation, and communication with other providers. Discharge Instructions Please refer to the electronic Patient Visit Report (Discharge Instructions) for additional information. Follow-Up Dr. Gray Bernard - SundayOctober 10 at 2:30 pm Additional Copies To Gray Bernard M.D.
== END 2017-10-04 12:01 | disposition home or self-care (01) | DRG 69 ==
LOC: C.EDB 11:18 → C.2E 13:47 → ENRESERV 13:53
PROVIDERS: ADMIT Internal Medicine; ATTEND Internal Medicine
DX: G45.9 Transient cerebral ischemic attack, unspecified (principal); I16.0 Hypertensive urgency; E66.01 Morbid (severe) obesity due to excess calories; Z68.41 Body mass index [BMI] 40.0-44.9, adult; R20.0 Anesthesia of skin; R42 Dizziness and giddiness; H83.09 Labyrinthitis, unspecified ear; I10 Essential (primary) hypertension; C69.91 Malignant neoplasm of unspecified site of right eye; E78.5 Hyperlipidemia, unspecified; Z79.02 Long term (current) use of antithrombotics/antiplatelets; Z79.899 Other long term (current) drug therapy; Z87.891 Personal history of nicotine dependence; Z88.7 Allergy status to serum and vaccine; Z88.8 Allergy status to other drugs, medicaments and biological substances; Z91.030 Bee allergy status; Z88.5 Allergy status to narcotic agent

== ENCOUNTER 2017-10-14 12:52 | Emergency (ER) | payer OTHER ==
[~2017-10-14] VITALS: Ht 170.2 cm; Wt 118.3 kg
[~2017-10-14 12:52] MED LIST changes: -ALBUAER INH; +ANT25 PO; -ASPCH81X PO; -CYCL10TA6 PO; -LISI-461 PO; +PLV75 PO; -RANI150T85 PO
[2017-10-14 12:57] VITALS: TEMP 36.6; Ht 170.2 cm; Wt 118.3 kg
--- NOTE | 2017-10-14 13:22 | EMERGENCY ROOM VISIT NOTE ---
History Report prepared by Vianey: Jacquie Gonzalez Under the Supervision of: Dr. Rafiq Sims D.O. First contact with patient: 13:06 Chief Complaint: NEURO SYMPTOMS Stated Complaint: FACIAL NUMBNESS, R FINGER TINGLING History of Present Illness The patient is a 72 year old female who presents to the Emergency Room with complaints of facial numbness beginning at 0930 this morning. She notes she was simply getting dressed this morning when the face numbness began suddenly. She states that she also has some finger tingling on her right hand. She notes she has been wearing a 30 day monitor and it went off which made her think she was having an episode of Afib. She denies any nausea, vomiting, fevers, chills, chest pain, abdominal pain, headaches, and dizziness. She is currently taking Eliquis. Source of History: patient Onset: 0930 this morning Position: other (face) Quality: tingling, numbness Timing: other (sudden) Associated Symptoms: No fevers, No chills, No headache, No chest pain, No nausea, No vomiting, No abdominal pain Note: Positive right finger tingling. Negative dizziness. Review of Systems See HPI for pertinent positives & negatives. A total of 10 systems reviewed and were otherwise negative. Past Medical & Surgical Medical Problems: (1) Melanoma (2) Right facial numbness (3) Sciatica Family History No pertinent family history Social History Smoking Status: Never Smoker Smokeless Tobacco Use: Unknown Marital Status: Housing Status: lives with family Occupation Status: retired Current/Historical Medications Scheduled Atorvastatin (Lipitor), 40 MG PO QPM Calcium Carbonate-Vitamin D (Calcium + D), 1 TAB PO QAM Cholecalciferol (Vitamin D), 2 TAB PO QAM Clopidogrel Bisulfate (Clopidogrel), 75 MG PO QAM Epinephrine (Epipen), 0.3 MG IM UD Multiple Vitamins W/ Minerals (Centrum), 1 TAB PO QAM Scheduled PRN Diclofenac Sodium (Topical) (Voltaren 1% Top Gel), 1 DOSE EXT DIRECTED PRN for Pain Lorazepam (Ativan), 1 MG PO DAILY PRN for Anxiety Meclizine HCl (Meclizine HCl), 12.5-25 MG PO Q6H PRN for vertigo/dizziness Meloxicam (Mobic), 15 MG PO DAILY PRN for Pain Allergies Coded Allergies: BEE STING (Verified Allergy, Unknown, ANAPHYLAXIS, 04/13/17) Influenza Vaccines (Verified Allergy, Unknown, RED/HARD AT SITE, SOB AND DIFF. SWALLOWING, 04/13/17) Oxycodone (Verified Allergy, Unknown, NAUSEA, 04/13/17) Propoxyphene (Verified Allergy, Unknown, SHORTNESS OF BREATH, 10/02/17) Physical Exam Vital Signs Date Time Temp Pulse Resp B/P (MAP) Pulse Ox O2 Delivery O2 Flow Rate FiO2 10/14/17 14:08 72 16 125/69 96 Room Air 10/14/17 14:05 65 10/14/17 14:04 96 Room Air 10/14/17 14:04 96 Room Air 10/14/17 12:57 36.6 75 16 155/78 98 Room Air Physical Exam GENERAL: Patient is awake, alert, and in no acute distress. Patient is resting comfortably and showing no signs of anxiety EYES: The conjunctivae are clear. The pupils are round and reactive. EARS, NOSE, MOUTH AND THROAT: The nose is without any evidence of any deformity. Mucous membranes are moist tongue is midline NECK: The neck is nontender and supple. RESPIRATORY: Normal respiratory effort is noted there is no evidence of wheezing rhonchi or rales CARDIOVASCULAR: Regular rate and rhythm noted there no murmurs rubs or gallops normal S1 normal S2 GASTROINTESTINAL: The abdomen is soft. Bowel sounds are present in all quadrants. Abdomen is nontender MUSCULOSKELETAL/EXTREMITIES: There is no evidence of gross deformity full range of motion is noted in the hips and shoulders SKIN: There is no obvious evidence of any rash. There are no petechiae, pallor or cyanosis noted. NEUROLOGIC: Patient is awake alert and oriented x3 strength is symmetric patellar reflexes are 2+ bilaterally Medical Decision & Procedures ER Provider Diagnostic Interpretation: Radiology results as stated below per my review and radiologist interpretation: CHEST ONE VIEW PORTABLE HISTORY: 72 years-old Female EVALUATE ALTERED MENTAL STATUS/WEAKNESS acute weakness with altered mental status COMPARISON: Chest radiograph 10/02/2017 TECHNIQUE: Portable AP view of the chest FINDINGS: Cardiomediastinal and hilar silhouettes are within normal limits. No pneumothorax, pleural effusion, focal airspace consolidation or overt pulmonary edema. Degenerative changes of the shoulders, right greater than left and spine are noted. IMPRESSION: No acute process. The above report was generated using voice recognition software. It may contain grammatical, syntax or spelling errors. Electronically signed by: Mor Clement M.D. 10/14/2017 1:40 PM HEAD WITHOUT CONTRAST (CT) CLINICAL HISTORY: 72 years-old Female with EVALUATE ALTERED MENTAL STATUS/WEAKNESS. Acutely altered mental status with weakness TECHNIQUE: Multiple axial CT images of the head were obtained without contrast. A dose lowering technique was utilized adhering to the principles of ALARA. CT DOSE: 537.48 mGy.cm COMPARISON: CT head 10/02/2017, brain MRI 10/02/2017. FINDINGS: No acute intracranial hemorrhage, midline shift, intracranial mass, hydrocephalus, territorial ischemia or abnormal extra-axial collection. Mild atrophy with moderate chronic microvascular ischemic changes. The calvarium is intact. The paranasal sinuses, mastoid air cells, and middle ear cavities are clear. IMPRESSION: No acute intracranial abnormality identified. The above report was generated using voice recognition software. It may contain grammatical, syntax or spelling errors. Electronically signed by: Mor Clement M.D. 10/14/2017 1:56 PM Laboratory Results 10/14/17 13:30 Red Blood Count 4.57, Mean Corpuscular Volume 91.9, Mean Corpuscular Hemoglobin 30.6, Mean Corpuscular Hemoglobin Concent 33.3, Mean Platelet Volume 10.1, Neutrophils (%) (Auto) 56.1, Lymphocytes (%) (Auto) 32.8, Monocytes (%) (Auto) 8.3, Eosinophils (%) (Auto) 1.8, Basophils (%) (Auto) 0.6, Neutrophils # (Auto) 3.05, Lymphocytes # (Auto) 1.78, Monocytes # (Auto) 0.45, Eosinophils # (Auto) 0.10, Basophils # (Auto) 0.03 10/14/17 13:30 Test 10/14/17 13:30 White Blood Count 5.43 K/uL (4.8-10.8) Red Blood Count 4.57 M/uL (4.2-5.4) Hemoglobin 14.0 g/dL (12.0-16.0) Hematocrit 42.0 % (37-47) Mean Corpuscular Volume 91.9 fL (80-100) Mean Corpuscular Hemoglobin 30.6 pg (25-34) Mean Corpuscular Hemoglobin Concent 33.3 g/dl (32-36) Platelet Count 167 K/uL (130-400) Mean Platelet Volume 10.1 fL (7.4-10.4) Neutrophils (%) (Auto) 56.1 % Lymphocytes (%) (Auto) 32.8 % Monocytes (%) (Auto) 8.3 % Eosinophils (%) (Auto) 1.8 % Basophils (%) (Auto) 0.6 % Neutrophils # (Auto) 3.05 K/uL (1.4-6.5) Lymphocytes # (Auto) 1.78 K/uL (1.2-3.4) Monocytes # (Auto) 0.45 K/uL (0.11-0.59) Eosinophils # (Auto) 0.10 K/uL (0-0.5) Basophils # (Auto) 0.03 K/uL (0-0.2) RDW Standard Deviation 49.5 fL (36.4-46.3) RDW Coefficient of Variation 14.7 % (11.5-14.5) Immature Granulocyte % (Auto) 0.4 % Immature Granulocyte # (Auto) 0.02 K/uL (0.00-0.02) Prothrombin Time 10.4 SECONDS (9.0-12.0) Prothromb Time International Ratio 1.0 (0.9-1.1) Activated Partial Thromboplast Time 29.2 SECONDS (21.0-31.0) Partial Thromboplastin Ratio 1.1 Anion Gap 7.0 mmol/L (3-11) Est Creatinine Clear Calc Drug Dose 99.5 ml/min Estimated GFR () 101.5 Estimated GFR (Non- 87.6 BUN/Creatinine Ratio 32.8 (10-20) Calcium Level 8.7 mg/dl (8.5-10.1) Magnesium Level 1.7 mg/dl (1.8-2.4) Total Bilirubin 0.5 mg/dl (0.2-1) Direct Bilirubin 0.2 mg/dl (0-0.2) Aspartate Amino Transf (AST/SGOT) 19 U/L (15-37) Alanine Aminotransferase (ALT/SGPT) 24 U/L (12-78) Alkaline Phosphatase 89 U/L (45-117) Troponin I < 0.015 ng/ml (0-0.045) Total Protein 6.9 gm/dl (6.4-8.2) Albumin 3.3 gm/dl (3.4-5.0) Thyroid Stimulating Hormone (TSH) 1.150 uIu/ml (0.300-4.500) Laboratory results per my review. Medications Administered Medications (Trade) Dose Ordered Sig/Alliosn Route Start Time Stop Time Status Last Admin Dose Admin Magnesium Sulfate (Magnesium Sulfate 1gm / D5W) 1 gm NOW STAT IV 10/14/17 14:06 10/14/17 14:07 DC 10/14/17 14:39 1 GM ECG Per My Interpretation Indication: weakness Rate (beats per minute): 72 Rhythm: normal sinus Findings: no ectopy, other (no acute ST segments, poor R wave progression noted ) Comparison ECG Date: October 02, 2017 Change: no significant change ED Course 1310: The patient was evaluated in room C7. A complete history and physical examination were performed. 1406: Ordered Magnesium Sulfate 1 gm IV 1425: I discussed the patient's case with Dr. Garcia, [facility]. He recommends adding and antiplatelet agent such as a baby aspirin every morning. 1434: Upon reevaluation, the patient is feeling better. I discussed the results and treatment plan with her. She verbalized agreement of the treatment plan. She was discharged home. Medical Decision Prior records/ancillary studies reviewed and summarized above. Nursing notes reviewed. Differential diagnosis: Etiologies such as metabolic, infection, hypo/hyperglycemia, electrolyte abnormalities, cardiac sources, intracerebral event, toxicologic, neurologic, as well as others were entertained. The patient is a 72-year-old female who presented to the emergency department for numbness. The patient noticed unilateral numbness on her face as well as her extremity. Patient had similar episodes last month and was admitted to our facility. At that time she had a workup which included MRI/MRA of the brain. She also had MRA of the neck. No significant cause for her presentation could be found. 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 I discussed patient's laboratory and radiographic studies with her. Her symptoms appear to have resolved. I discussed her case with her covering primary neurologist. At this time is recommended we add baby aspirin every morning. Given the patient's current Eliquis treatment we would not be comfortable starting her on any further anticoagulation or antiplatelet agent. She was encouraged to follow-up with her primary care physician as well as her primary neurologist. She was also given TIA discharge instructions and encouraged to return the emergency department immediately if symptoms change worsening the need arises. Medication Reconcilliation Current Medication List: was personally reviewed by me Blood Pressure Screening Patient's blood pressure: Elevated blood pressure Blood pressure disposition: Elevated BP felt to be situational Consults Time Called: 1420 Consulting Physician: Dr. Garcia, [facility] Returned Call: 1420 I discussed the patient's case with Dr. Garcia [facility]. He recommends adding and antiplatelet agent such as a baby aspirin every morning. Impression Primary Impression: Numbness Additional Impressions: TIA (transient ischemic attack) Hypomagnesemia Scribe Attestation The scribe's documentation has been prepared under my direction and personally reviewed by me in its entirety. I confirm that the note above accurately reflects all work, treatment, procedures, and medical decision making performed by me. Departure Information Dispostion Home / Self-Care Referrals Gray Bernard M.D. (PCP) Patient Instructions My [facility] Additional Instructions Call your primary care physician in the morning to schedule a follow-up appointment. Continue all medications as prescribed. Begin taking a baby aspirin every morning. Return to the emergency department immediately if symptoms change worsening the need arises. Problem Qualifiers Additional Impressions: TIA (transient ischemic attack) Transient cerebral ischemia type: unspecified Qualified Codes: G45.9 - Transient cerebral ischemic attack, unspecified
[2017-10-14 13:40] LABS: BASO % 0.6 %; BASO ABS # 0.03 K/uL (0-0.2); EOS % 1.8 %; IG# 0.02 K/uL (0.00-0.02); LYMPH % 32.8 %; LYMPH ABS # 1.78 K/uL (1.2-3.4); MEAN CELL VOLUME 91.9 fL (80-100); MEAN CORPUSCULAR HEMOGLOBIN 30.6 pg (25-34); MEAN CORPUSCULAR HGB CONC 33.3 g/dl (32-36); MEAN PLATELET VOLUME 10.1 fL (7.4-10.4); MONO % 8.3 %; MONO ABS # 0.45 K/uL (0.11-0.59); NEUT % 56.1 %; NEUT ABS # 3.05 K/uL (1.4-6.5); PLATELET COUNT 167 K/uL (130-400); RED CELL DISTRIBUTION WIDTH CV 14.7 % (11.5-14.5); RED CELL DISTRIBUTION WIDTH SD 49.5 fL (36.4-46.3); WHITE BLOOD COUNT 5.43 K/uL (4.8-10.8)
--- NOTE | 2017-10-14 13:41 | DIAGNOSTIC IMAGING REPORT ---
CHEST ONE VIEW PORTABLE HISTORY: 72 years-old Female EVALUATE ALTERED MENTAL STATUS/WEAKNESS acute weakness with altered mental status COMPARISON: Chest radiograph 10/02/2017 TECHNIQUE: Portable AP view of the chest FINDINGS: Cardiomediastinal and hilar silhouettes are within normal limits. No pneumothorax, pleural effusion, focal airspace consolidation or overt pulmonary edema. Degenerative changes of the shoulders, right greater than left and spine are noted. IMPRESSION: No acute process. The above report was generated using voice recognition software. It may contain grammatical, syntax or spelling errors. Electronically signed by: Mor Clement M.D. 10/14/2017 1:40 PM Dictated Date/Time: 10/14/2017 1:39 PM
[2017-10-14 13:50] LABS: PTT PATIENT 29.2 SECONDS (21.0-31.0)
[2017-10-14 13:57] LABS: ALBUMIN 3.3 gm/dl (3.4-5.0); ALT/SGPT 24 U/L (12-78); AST/SGOT 19 U/L (15-37); BLOOD UREA NITROGEN 23 mg/dl (7-18); CALCIUM 8.7 mg/dl (8.5-10.1); CARBON DIOXIDE 27 mmol/L (21-32); CREATININE 0.69 mg/dl (0.60-1.20); GLUCOSE 92 mg/dl (70-99); POTASSIUM 4.2 mmol/L (3.5-5.1); SODIUM 141 mmol/L (136-145)
--- NOTE | 2017-10-14 13:57 | DIAGNOSTIC IMAGING REPORT ---
HEAD WITHOUT CONTRAST (CT) CLINICAL HISTORY: 72 years-old Female with EVALUATE ALTERED MENTAL STATUS/WEAKNESS. Acutely altered mental status with weakness TECHNIQUE: Multiple axial CT images of the head were obtained without contrast. A dose lowering technique was utilized adhering to the principles of ALARA. CT DOSE: 537.48 mGy.cm COMPARISON: CT head 10/02/2017, brain MRI 10/02/2017. FINDINGS: No acute intracranial hemorrhage, midline shift, intracranial mass, hydrocephalus, territorial ischemia or abnormal extra-axial collection. Mild atrophy with moderate chronic microvascular ischemic changes. The calvarium is intact. The paranasal sinuses, mastoid air cells, and middle ear cavities are clear. IMPRESSION: No acute intracranial abnormality identified. The above report was generated using voice recognition software. It may contain grammatical, syntax or spelling errors. Electronically signed by: Mor Clement M.D. 10/14/2017 1:56 PM Dictated Date/Time: 10/14/2017 1:53 PM
[2017-10-14 14:04] VITALS: O2SAT 96
[2017-10-14] MEDS ORDERED: MAGNESIUM SULFATE 1GM / D5W 1 GM BAG IV STA (14:06)
[2017-10-14 14:08] LABS: ALKALINE PHOSPHATASE 89 U/L (45-117); TOTAL PROTEIN 6.9 gm/dl (6.4-8.2)
[2017-10-14 16:02] VITALS: BP 116/70; PULSE 67; O2SAT 98
== END 2017-10-14 16:02 | disposition home or self-care (01) ==
LOC: C.EDB 12:53 → C.EDC 16:02
DX: G45.9 Transient cerebral ischemic attack, unspecified (principal); E83.42 Hypomagnesemia; I48.91 Unspecified atrial fibrillation; Z79.01 Long term (current) use of anticoagulants; Z85.820 Personal history of malignant melanoma of skin; Z79.899 Other long term (current) drug therapy; Z91.030 Bee allergy status; Z88.7 Allergy status to serum and vaccine; Z88.5 Allergy status to narcotic agent; Z88.8 Allergy status to other drugs, medicaments and biological substances

== ENCOUNTER → 2018-01-28 | Outpatient (CLI) | payer OTHER ==
[2018-01-28 13:17] LABS: BASO % 0.4 %; BASO ABS # 0.03 K/uL (0-0.2); EOS % 1.9 %; EOS ABS # 0.13 K/uL (0-0.5); HEMATOCRIT 43.7 % (37-47); HEMOGLOBIN 14.1 g/dL (12.0-16.0); IG# 0.05 K/uL (0.00-0.02); LYMPH % 31.8 %; LYMPH ABS # 2.13 K/uL (1.2-3.4); MEAN CELL VOLUME 93.8 fL (80-100); MEAN CORPUSCULAR HEMOGLOBIN 30.3 pg (25-34); MEAN CORPUSCULAR HGB CONC 32.3 g/dl (32-36); MEAN PLATELET VOLUME 10.9 fL (7.4-10.4); MONO % 8.5 %; MONO ABS # 0.57 K/uL (0.11-0.59); NEUT % 56.7 %; NEUT ABS # 3.79 K/uL (1.4-6.5); PLATELET COUNT 214 K/uL (130-400); RED CELL DISTRIBUTION WIDTH CV 14.8 % (11.5-14.5)
[2018-01-28 14:23] LABS: ALBUMIN 3.4 gm/dl (3.4-5.0); ALKALINE PHOSPHATASE 87 U/L (45-117); ALT/SGPT 26 U/L (12-78); AST/SGOT 16 U/L (15-37); BLOOD UREA NITROGEN 20 mg/dl (7-18); CARBON DIOXIDE 28 mmol/L (21-32); CHOLESTEROL 185 mg/dl (0-200); CREATININE 0.77 mg/dl (0.60-1.20); GLUCOSE 87 mg/dl (70-99); LDL CHOLESTEROL CALCULATED 84 mg/dl; POTASSIUM 4.7 mmol/L (3.5-5.1); SODIUM 140 mmol/L (136-145); TOTAL PROTEIN 7.1 gm/dl (6.4-8.2)
== END | disposition home or self-care (01) ==
LOC: C.LABPBG 10:52
PROVIDERS: ATTEND Internal Medicine
DX: I48.0 Paroxysmal atrial fibrillation (principal); E78.5 Hyperlipidemia, unspecified

== ENCOUNTER 2018-11-17 22:56 | Inpatient (IN) ==
[2018-11-17] MEDS ORDERED: SODIUM CHLORIDE 0.9% 500 ML IV SCH (23:45)
[2018-11-17 23:51] LABS: Basophils # (auto) 0.05 K/uL (0-0.2); Eosinophils # (auto) 0.18 K/uL (0-0.5); Eosinophils % (auto) 3.4 %; Hemoglobin 13.9 g/dL (12.0-16.0); Immature Granulocytes # (auto) 0.02 K/uL (0.00-0.02); Immature Granulocytes % (auto) 0.4 %; Lymphocytes # (auto) 1.99 K/uL (1.2-3.4); Lymphocytes % (auto) 37.8 %; Mean Corpuscular Hgb Conc 33.9 g/dL (32-36); Mean Corpuscular Volume 89.9 fL (80-100); Mean Platelet Volume 11.1 fL (7.4-10.4); Monocytes # (auto) 0.46 K/uL (0.11-0.59); Monocytes % (auto) 8.7 %; Neutrophils # (auto) 2.56 K/uL (1.4-6.5); Neutrophils % (auto) 48.7 %; Platelet Count 190 K/uL (130-400); RDW Coefficient of Variation 14.7 % (11.5-14.5); RDW Standard Deviation 47.8 fL (36.4-46.3); Red Blood Count 4.56 M/uL (4.2-5.4); White Blood Count 5.26 K/uL (4.8-10.8)
[2018-11-18 00:15] LABS: Alanine Aminotransferase 23 U/L (12-78); Albumin Level 3.6 gm/dl (3.4-5.0); Aspartate Aminotransferase 21 U/L (15-37); BUN Creatinine Ratio 22.5 (10-20); Blood Urea Nitrogen 31 mg/dl (7-18); Calcium 9.1 mg/dl (8.5-10.1); Carbon Dioxide 23 mmol/L (21-32); Chloride 104 mmol/L (98-107); Creatinine Clr Calc Pharmacy 51.3 ml/min; Est GFR (African American) 43.8; Est GFR (Non-African American) 37.8; Glucose 81 mg/dl (70-99); Magnesium 1.7 mg/dl (1.8-2.4); Sodium 136 mmol/L (136-145)
[2018-11-18 00:26] LABS: Alkaline Phosphatase 76 U/L (45-117); Bilirubin,Total 0.6 mg/dl (0.2-1); Globulin 3.7 gm/dl (2.5-4.0); Total Protein 7.3 gm/dl (6.4-8.2); Troponin I < 0.015 ng/ml (0-0.045)
[2018-11-18 00:29] LABS: Appearance Urine Clear (Clear); Bacteria Urine Automated Negative (Negative); Bilirubin Urine Negative (Negative); Blood Urine Negative (Negative); Color Urine Yellow; Glucose Urine UA Negative (Negative); Ketones Urine 1+ (Negative); Leukocyte Esterase Urine 1+ (Negative); Nitrite Urine Negative (Negative); Protein Urine Negative (Negative); RBC Urine Automated 0-4 /hpf (0-4); Specific Gravity Urine 1.015 (1.000-1.030); Urobilinogen Urine Negative (Negative)
[2018-11-18] MEDS ORDERED: MAGNESIUM SULFATE / D5W 1 GM/100 ML BAG IV ONE (00:45)
[2018-11-18] MEDS ORDERED: SODIUM CHLORIDE 0.9% 1000ML 500 ML IV ONE (00:45)
--- NOTE | 2018-11-18 01:46 | History & Physical Report ---
Date of Service November 18, 2018 Assessment & Plan (1) Weakness: Etiology uncertain. Patient with no focal weakness at present, feel improved. ?episode of atrial fibrillation contributing to weakness ?JOVANI -Continue to monitor -Ambulate a tolerated Present on Admission?: Yes (2) JOVANI (acute kidney injury): Patient with BUN=31, Cr=1.39, ratio of 22.5. She appears euvolemic on exam. No history of volume depletion, GI losses. No new medications or medication changes. Voiding clear yellow urine without difficulty. She has been following a higher protein diet than usual which may contribute to elevated BUN. Ketones in urine ?dehydration -Check renal ultrasound to assess for patent urinary tract, evidence of medical renal disease -Check urine Na and Cr to calculate FeNA -LR at 80mL/hr x 1 liter -Repeat labs in AM -Hold nephrotoxic agents -Renal dosing where appropriate -Continue to monitor BUN, Cr, Electrolytes and UOP Present on Admission?: Yes (3) Hypertension: Blood pressure well controlled at present. -Hold Lisinopril 40mg daily -Continue Metoprolol Present on Admission?: Yes (4) Dyslipidemia: Chronic -Continue Atorvastatin 40mg po daily -Check CK x 1 with AM labs Present on Admission?: Yes (5) Atrial fibrillation: Rate controlled at present, sinus rhythm with occasional ectopy -Continue Eliquis 5mg po BID -Continue Metoprolol succinate 25mg po daily -Continue to monitor Present on Admission?: Yes (6) Anxiety: Chronic. Well controlled -Continue Ativan 1mg po daily PRN F/E/N - LR at 80mL/hr x 1 liter, monitor electrolytes and replete as needed, heart healthy diet as tolerated Ppx - low risk for DVT Code - Full Dispo - Admit to PCU History of Present Illness Chief Complaint: weakness Primary Care Provider: Gray Bernard MD Karlene Sen is a pleasant 73yo C female with history of HTN, HLP, PAF on Eliquis anticoagulation presenting with weakness and fatigue. Patient was in her usual state of health during the day. She has been eating and drinking as usual, adequate urine output with no urinary complaints. At 21:00 she developed weakness and shaking. She also had a brief episode of bilateral neck pain. No additional complaints. She feels well at present. Denies fevers/chills/sweats, denies chest pain/palpitations/cough/SOB. Denies abdominal pain/nausea/vomiting, had a soft BM, no urinary complaints. No focal weakness. ER Course: NSS 500mL, Magnesium 1gm Allergies Allergy/AdvReac Type Severity Reaction Status Date / Time bee venom protein (honey bee) Allergy Unknown ANAPHYLAXIS Verified 11/18/18 01:48 Influenza Virus Vaccines Allergy Unknown RED/HARD Verified 11/18/18 01:48 AT SITE, SOB AND DIFF. SWALLOWING oxycodone Allergy Unknown NAUSEA Verified 11/18/18 01:48 propoxyphene Allergy Unknown SHORTNESS Verified 11/18/18 01:48 OF BREATH aspirin AdvReac Unknown Verified 11/18/18 01:48 meloxicam [From Mobic] AdvReac Unknown Verified 11/18/18 01:49 Home Medications Home Medications Medication Instructions Recorded Confirmed Type MULTIPLE VITAMINS W/ MINERALS 1 tab PO QAM #0 10/25/15 History (CENTRUM) ATORVASTATIN (LIPITOR) 40 mg PO QPM #0 04/13/17 History CALCIUM CARBONATE-VITAMIN D 1 tab PO QAM #0 04/13/17 History (CALCIUM + D) Cholecalciferol (Vitamin D) 2 tab PO QAM #0 04/13/17 History DICLOFENAC SODIUM (TOPICAL) 1 dose EXT DIRECTED PRN #0 04/13/17 History (VOLTAREN 1% TOP GEL) EPINEPHRINE (EPIPEN) 0.3 mg IM UD #0 04/13/17 History LORAZEPAM (ATIVAN) 1 mg PO DAILY PRN #0 04/13/17 History MELOXICAM (MOBIC) 15 mg PO DAILY PRN #0 04/13/17 History Clopidogrel Bisulfate (Clopidogrel) 75 mg PO QAM #30 tab 10/04/17 Rx Meclizine HCl 12.5 - 25 mg PO Q6H PRN #30 tab 10/04/17 Rx apixaban [Eliquis] 5 mg PO BID 11/18/18 11/18/18 History atorvastatin 40 mg PO QPM 11/18/18 11/18/18 History calcium carbonate-vit D3-min 1 tab PO QAM 11/18/18 11/18/18 History epinephrine 0.3 mg IM UD PRN 11/18/18 11/18/18 History lisinopril 40 mg PO DAILY 11/18/18 11/18/18 History lorazepam 1 mg PO DAILY PRN 11/18/18 11/18/18 History metoprolol succinate 25 mg PO DAILY 11/18/18 11/18/18 History wbkutotc-ctv-AT-lycopen-lutein 1 tab PO DAILY 11/18/18 11/18/18 History [Centrum Silver] Past Med/Surg History Medical History Dyslipidemia Hypertension Paroxysmal atrial fibrillation Vertigo Surgical History History of cholecystectomy Family History Other Medical history non-contributory Social History Feels Safe at Home: Yes Smoking Status: Never smoker Hx Alcohol Use: No Hx Substance Use: No Review of Systems Review of Systems: All systems reviewed & are unremarkable except as noted in HPI & below Physical Exam Physical Exam: General: patient resting comfortably, NAD, non-toxic in appearance, AA&O x 4 Skin: warm, dry, intact, no rashes or lesions HEENT: NC/AT, PERRL, EOMI, anicteric sclera, conjunctiva without injection, external ear normal to inspection and nontender, nares patent, moist mucus membranes, dentition intact, no oropharyngeal lesions, neck supple, trachea midline, no LAD, no thyromegaly, no JVD Heart: +S1/S2, regular, no m/r/g Lungs: equal air entry bilaterally, no rales/rhonchi/wheezes Abd: +BS, soft, NT/ND, no masses/organomegaly/ascites Ext: warm, 2+ pulses in UE/LE bilaterally, no clubbing/cyanosis or edema Neuro: nonfocal, patient AA&O x 4, speech intact, no facial droop, moving all extremities on command with equal strength 5/5 Results & Data Vital Signs (Past 12 Hours) Vital Signs Temp Pulse Resp BP Pulse Ox 11/18/18 00:30 78 21 11/18/18 00:01 82 19 123/68 97 11/18/18 00:00 84 22 94 11/17/18 23:30 109 H 16 97 11/17/18 23:20 98 11/17/18 23:10 123 H 18 11/17/18 23:07 36.5 C 94 H 22 167/94 H 96 11/17/18 23:06 89 20 167/94 H Laboratory Results Lab Results 11/17/18 11/17/18 11/18/18 Range/Units 23:24 23:24 00:07 WBC 5.26 (4.8-10.8) K/uL RBC 4.56 (4.2-5.4) M/uL Hgb 13.9 (12.0-16.0) g/dL Hct 41.0 (37-47) % MCV 89.9 (80-100) fL MCH 30.5 (25-34) pg MCHC 33.9 (32-36) g/dL RDW Std Deviation 47.8 H (36.4-46.3) fL RDW Coeff of Spencer 14.7 H (11.5-14.5) % Plt Count 190 (130-400) K/uL MPV 11.1 H (7.4-10.4) fL Immature Gran % (Auto) 0.4 % Neut % (Auto) 48.7 % Lymph % (Auto) 37.8 % Granite % (Auto) 8.7 % Eos % (Auto) 3.4 % Baso % (Auto) 1.0 % Immature Gran # (Auto) 0.02 (0.00-0.02) K/uL Neut # (Auto) 2.56 (1.4-6.5) K/uL Lymph # (Auto) 1.99 (1.2-3.4) K/uL Granite # (Auto) 0.46 (0.11-0.59) K/uL Eos # (Auto) 0.18 (0-0.5) K/uL Baso # (Auto) 0.05 (0-0.2) K/uL Sodium 136 (136-145) mmol/L Potassium 4.0 (3.5-5.1) mmol/L Chloride 104 (98-107) mmol/L Carbon Dioxide 23 (21-32) mmol/L Anion Gap 9.0 (3-11) BUN 31 H (7-18) mg/dl Creatinine 1.39 H (0.6-1.2) mg/dl Est Cr Clr Drug Dosing 51.3 ml/min Est GFR ( Amer) 43.8 Est GFR (Non-Af Amer) 37.8 BUN/Creatinine Ratio 22.5 H (10-20) Glucose 81 (70-99) mg/dl Calcium 9.1 (8.5-10.1) mg/dl Magnesium 1.7 L (1.8-2.4) mg/dl Total Bilirubin 0.6 (0.2-1) mg/dl AST 21 (15-37) U/L ALT 23 (12-78) U/L Alkaline Phosphatase 76 (45-117) U/L Troponin I < 0.015 (0-0.045) ng/ml Total Protein 7.3 (6.4-8.2) gm/dl Albumin 3.6 (3.4-5.0) gm/dl Globulin 3.7 (2.5-4.0) gm/dl Albumin/Globulin Ratio 1.0 (0.9-2) TSH 1.710 (0.300-4.500) uIu/ml Urine Color Yellow Urine Appearance Clear (Clear) Urine pH 5.0 (4.5-7.5) Ur Specific [place] 1.015 (1.000-1.030) Urine Protein Negative (Negative) Urine Glucose (UA) Negative (Negative) Urine Ketones 1+ H (Negative) Urine Blood Negative (Negative) Urine Nitrite Negative (Negative) Urine Bilirubin Negative (Negative) Urine Urobilinogen Negative (Negative) Ur Leukocyte Esterase 1+ H (Negative) Urine WBC (Auto) 1-5 (0-5) /hpf Urine RBC (Auto) 0-4 (0-4) /hpf U Hyaline Cast (Auto) 1-5 (0-5) /lpf U Epithel Cells (Auto) 5-10 H (0-5) /lpf Urine Bacteria (Auto) Negative (Negative) Diagnostic Findings CT Head: Comparison 10/14/17 - No intracranial hemorrhage, mass effect of CT evidence of acute infarct. Ventricles appear unchanged in size and remain midline. Mild patchy areas of white matter low attenuation again noted may represent chronic small vessel ischemic change. Visualized paranasal sinuses, mastoids and orbits appear within limits. ECG Additional Comments: NSR at 79bpm with sinus arrhythmia at 79bpm, RG=442, QRS=94, CBl=665, no evidence of acute ischemia Code Status & VTE Plan Code Status FULL (1) Hypertension Hypertension type: essential hypertension Qualified Code(s): I10 - Essential (primary) hypertension (2) Atrial fibrillation Atrial fibrillation type: paroxysmal Qualified Code(s): I48.0 - Paroxysmal atrial fibrillation
[2018-11-18] MEDS ORDERED: ACETAMINOPHEN 325 MG TAB PO PRN (02:00)
[2018-11-18] MEDS ORDERED: SODIUM CHLORIDE 0.9% 1000ML 1,000 ML IV SCH (02:00)
--- NOTE | 2018-11-18 02:17 | Emergency Department Note ---
History of Present Illness General Chief complaint: Weakness Stated complaint: WEAKNESS, SHAKY, COLD History of Present Illness This 86-year-old presents to the ER complaining of weakness shakiness and headache Location: Generalized Quality: Shaky Severity: Moderate Duration: Tonight Timing: Tonight Context: Family was concerned about the patient and Modifying factors: better with rest; worse with activity Patient denies chest pain, dyspnea, abdominal pain, fevers, cough, congestion. She is tolerating p.o. fluids and food. Home Medications Home Medications Medication Instructions Recorded Confirmed Type apixaban [Eliquis] 5 mg PO BID 11/18/18 11/18/18 History atorvastatin 40 mg PO QPM 11/18/18 11/18/18 History calcium carbonate-vit D3-min 1 tab PO QAM 11/18/18 11/18/18 History epinephrine 0.3 mg IM UD PRN 11/18/18 11/18/18 History lisinopril 40 mg PO DAILY 11/18/18 11/18/18 History lorazepam 1 mg PO DAILY PRN 11/18/18 11/18/18 History metoprolol succinate 25 mg PO DAILY 11/18/18 11/18/18 History vnqpitwr-awv-VD-lycopen-lutein 1 tab PO DAILY 11/18/18 11/18/18 History [Centrum Silver] Allergies Allergy/AdvReac Type Severity Reaction Status Date / Time bee venom protein (honey bee) Allergy Unknown ANAPHYLAXIS Verified 11/18/18 01:48 Influenza Virus Vaccines Allergy Unknown RED/HARD Verified 11/18/18 01:48 AT SITE, SOB AND DIFF. SWALLOWING oxycodone Allergy Unknown NAUSEA Verified 11/18/18 01:48 propoxyphene Allergy Unknown SHORTNESS Verified 11/18/18 01:48 OF BREATH aspirin AdvReac Unknown Verified 11/18/18 01:48 meloxicam [From Mobic] AdvReac Unknown Verified 11/18/18 01:49 Past Med/Surg History Medical History Dyslipidemia Hypertension Paroxysmal atrial fibrillation Vertigo Surgical History History of cholecystectomy Family History Other Medical history non-contributory Social History Feels Safe at Home: Yes Smoking Status: Never smoker Hx Alcohol Use: No Hx Substance Use: No Review of Systems All systems reviewed & are unremarkable except as noted in HPI & below Physical Exam Vital Signs Vital Signs - 24 hr 11/17/18 23:06 11/17/18 23:07 11/17/18 23:10 Temperature 36.5 C Temperature Source Oral Sepsis Recent Fever Within 48 Hours No Sepsis Action Taken by Nursing No Action Required Pulse Rate 89 94 H 123 H Pulse Rate from SpO2 Sensor Respiratory Rate 20 22 18 Respiratory Depth Normal Blood Pressure 167/94 H 167/94 H Blood Pressure Mean 118 118 Pulse Oximetry 96 Oxygen Delivery Method Room Air 11/17/18 23:20 11/17/18 23:30 11/18/18 00:00 Temperature Temperature Source Sepsis Recent Fever Within 48 Hours Sepsis Action Taken by Nursing Pulse Rate 109 H 84 Pulse Rate from SpO2 Sensor 85 82 Respiratory Rate 16 22 Respiratory Depth Blood Pressure Blood Pressure Mean Pulse Oximetry 98 97 94 Oxygen Delivery Method Room Air 11/18/18 00:01 11/18/18 00:30 11/18/18 00:43 Temperature Temperature Source Sepsis Recent Fever Within 48 Hours Sepsis Action Taken by Nursing Pulse Rate 82 78 Pulse Rate from SpO2 Sensor 84 Respiratory Rate 19 21 Respiratory Depth Blood Pressure 123/68 Blood Pressure Mean 86 Pulse Oximetry 97 Oxygen Delivery Method Room Air VITALS: Vitals are noted on the nurse's note and reviewed by myself. Vital signs stable. GENERAL: Pleasant female, in no acute distress, nondiaphoretic, well-developed well-nourished. SKIN: The skin was without rashes, erythema, edema, or bruising. There is no tenting of the skin. Capillary reflex less than 2 seconds. HEAD: Normocephalic atraumatic. EARS: External auditory canals clear EYES: Pupils equal round and reactive to light and accommodation. Conjunctivae without injection, sclerae without icterus. Extraocular movements intact. NOSE: Patent, turbinates without inflammation or discharge. MOUTH: Mucous membranes mildly dry. Pharynx without erythema or exudate. Uvula midline. Airway patent. Tongue does not deviate. NECK: Supple without nuchal rigidity. No lymphadenopathy. No thyromegaly. Cer vical spine is nontender. No JVD. HEART: Regular rate and rhythm LUNGS: Clear to auscultation bilaterally without wheezes, rales or rhonchi. No retractions or accessory muscle use. ABDOMEN: Positive bowel sounds x 4. Normal tympanic percussion. Soft, nontender, without masses or organomegaly. Bhandari sign negative. No guarding or rebound tenderness. No CVA tenderness MUSCULOSKELETAL: No muscle atrophy, erythema, or edema noted. 5 out of 5 strength throughout NEURO: Patient was alert and oriented to person place and time. Normal sensation to light and sharp touch. No focal neurological deficits. Cranial nerves II through XII grossly intact. No pronator drift. Cerebellar exam i ntact. Course Administered Medications Discontinued Medications Sodium Chloride (Nss) 500 mls @ 999 mls/hr IV .Q31M KIRT Stop: 11/18/18 00:15 Last Infusion: 11/18/18 00:31 Dose: 0 mls/hr Documented by: [id number] Admin: 11/17/18 23:46 Dose: 999 mls/hr Documented by: [id number] Magnesium Sulfate/Dextrose (Magnesium Sulfate / D5w) 1 gm in 100 mls @ 100 mls/hr IV ONE ONE Stop: 11/18/18 01:44 Last Infusion: 11/18/18 02:06 Dose: 0 mls/hr Documented by: [id number] Admin: 11/18/18 00:48 Dose: 100 mls/hr Documented by: [id number] Sodium Chloride (Nss 1000ml) 500 mls @ 999 mls/hr IV .Q31M ONE Stop: 11/18/18 01:15 Last Infusion: 11/18/18 02:06 Dose: 0 mls/hr Documented by: [id number] Admin: 11/18/18 00:48 Dose: 999 mls/hr Documented by: [id number] Medical Decision Making Medical Records Attestation: I reviewed the patient's medical records. Home Medications Current Medication List: was personally reviewed by me Laboratory Data Attestation: I reviewed the patient's lab results. Result diagrams: 11/17/18 23:24 11/17/18 23:24 Lab Results 11/17/18 11/17/18 11/18/18 Range/Units 23:24 23:24 00:07 WBC 5.26 (4.8-10.8) K/uL RBC 4.56 (4.2-5.4) M/uL Hgb 13.9 (12.0-16.0) g/dL Hct 41.0 (37-47) % MCV 89.9 (80-100) fL MCH 30.5 (25-34) pg MCHC 33.9 (32-36) g/dL RDW Std Deviation 47.8 H (36.4-46.3) fL RDW Coeff of Spencer 14.7 H (11.5-14.5) % Plt Count 190 (130-400) K/uL MPV 11.1 H (7.4-10.4) fL Immature Gran % (Auto) 0.4 % Neut % (Auto) 48.7 % Lymph % (Auto) 37.8 % [place] % (Auto) 8.7 % Eos % (Auto) 3.4 % Baso % (Auto) 1.0 % Immature Gran # (Auto) 0.02 (0.00-0.02) K/uL Neut # (Auto) 2.56 (1.4-6.5) K/uL Lymph # (Auto) 1.99 (1.2-3.4) K/uL [place] # (Auto) 0.46 (0.11-0.59) K/uL Eos # (Auto) 0.18 (0-0.5) K/uL Baso # (Auto) 0.05 (0-0.2) K/uL Sodium 136 (136-145) mmol/L Potassium 4.0 (3.5-5.1) mmol/L Chloride 104 (98-107) mmol/L Carbon Dioxide 23 (21-32) mmol/L Anion Gap 9.0 (3-11) BUN 31 H (7-18) mg/dl Creatinine 1.39 H (0.6-1.2) mg/dl Est Cr Clr Drug Dosing 51.3 ml/min Est GFR ( Amer) 43.8 Est GFR (Non-Af Amer) 37.8 BUN/Creatinine Ratio 22.5 H (10-20) Glucose 81 (70-99) mg/dl Calcium 9.1 (8.5-10.1) mg/dl Magnesium 1.7 L (1.8-2.4) mg/dl Total Bilirubin 0.6 (0.2-1) mg/dl AST 21 (15-37) U/L ALT 23 (12-78) U/L Alkaline Phosphatase 76 (45-117) U/L Troponin I < 0.015 (0-0.045) ng/ml Total Protein 7.3 (6.4-8.2) gm/dl Albumin 3.6 (3.4-5.0) gm/dl Globulin 3.7 (2.5-4.0) gm/dl Albumin/Globulin Ratio 1.0 (0.9-2) TSH 1.710 (0.300-4.500) uIu/ml Urine Color Yellow Urine Appearance Clear (Clear) Urine pH 5.0 (4.5-7.5) Ur Specific [place] 1.015 (1.000-1.030) Urine Protein Negative (Negative) Urine Glucose (UA) Negative (Negative) Urine Ketones 1+ H (Negative) Urine Blood Negative (Negative) Urine Nitrite Negative (Negative) Urine Bilirubin Negative (Negative) Urine Urobilinogen Negative (Negative) Ur Leukocyte Esterase 1+ H (Negative) Urine WBC (Auto) 1-5 (0-5) /hpf Urine RBC (Auto) 0-4 (0-4) /hpf U Hyaline Cast (Auto) 1-5 (0-5) /lpf U Epithel Cells (Auto) 5-10 H (0-5) /lpf Urine Bacteria (Auto) Negative (Negative) Blood Pressure Blood Pressure Findings: Elevated blood pressure Blood Pressure Disposition: did not require urgent referral MDM Narrative Prior records/ancillary studies reviewed and summarized above. Nursing notes reviewed. Additional history obtained from family. The patient's history was concerning for feeling shaky and weak. Differential diagnosis: Etiologies such as metabolic, infection, hypo/hyperglycemia, electrolyte abnormalities, cardiac sources, intracerebral event, toxicologic, neurologic, as well as others were entertained. Physical examination: As above. ER treatment provided: IV Lock IV fluids, magnesium On reassessment the patient felt better. Diagnostics interpretation by me: ECG: Normal sinus, normal intervals, no acute ST-T wave changes. Impression normal sinus rhythm interpreted by myself I think arrhythmia is unlikely. EKG shows normal sinus rhythm with no interval abnormalities such as QT prolongation or WPW. There are no findings to suggest Brugada syndrome. Cardiac monitoring in the emergency department reveals no t achycardic or bradycardic dysrhythmia. Hypertrophic cardiomyopathy was considered but there are no clear historical elements pointing toward this. EKG is not suggestive. The QRS voltage is not extremely large and there are no suggestive Q waves. The labs revealed creatinine is doubled per chart review. Low magnesium Imaging studies: Chest x-ray with no acute consolidation, pneumothorax or free air per my interpretation Negative CAT scan of the head per stat radiology Consultation: A consultation was placed with the hospitalist, Dr Bhatt. The case was discussed and diagnostics were reviewed. The patient was evaluated in the ER for further treatment. Exam and history seem consistent with acute kidney injury with dehydration. Patient was hydrated as above. She felt weak and unsteady. Medicine was consulted for possible admission. Family is agreeable. By the evaluation outlined above emergent etiologies such as infection, electrolyte abnormalities, cardiac sources, intracerebral event, toxologic, neurologic, abnormalities blood glucose, metabolic, as well as others were deemed relatively unlikely. The pt informed about the findings as listed above. All questions were answered and pleased with the treatment. Case reviewed with my attending The chart was completed utilizing [employer] Speech voice recognition software. Grammatical errors, random word insertions, pronoun errors, and incomplete sentences are an occassional consequence of this system due to software limitations, ambient noise, and hardware issues. Any formal questions or concerns about the content, text, or information contained within the body of this dictation should be directly addressed to the physician surgical supply assistant for clarification. Impression & Plan JOVANI (acute kidney injury), Acute dehydration Discharge Plan Visit Data *Final* Discharge Date/Time: 11/18/18 01:46 Chief Complaint: Weakness Stated Complaint: WEAKNESS, SHAKY, COLD ED Provider: Cindy Jolley ED Midlevel Provider: Lou Pro Discharge Problem: JOVANI (acute kidney injury), Acute dehydration Patient Disposition: Admitted As Inpatient Condition: Fair Discharge Instructions Interventions: ED Discharge Assessment Last Done: 11/18/18 01:46
[2018-11-18] MEDS ORDERED: LORazepam 1 MG TAB PO PRN (02:21)
[2018-11-18 02:49] LABS: BUN Creatinine Ratio 25.4 (10-20); Creatinine Clr Calc Pharmacy 62.2 ml/min; Est GFR (Non-African American) 47.5; Potassium 4.5 mmol/L (3.5-5.1)
[2018-11-18 02:52] LABS: Phosphorus 2.7 mg/dl (2.5-4.9)
[2018-11-18 03:01] LABS: Creatinine Urine Random 18.4 mg/dl
--- NOTE | 2018-11-18 06:44 | XRay Report ---
XR chest 1V portable CLINICAL HISTORY: Weakness. COMPARISON STUDY: Chest radiograph October 14, 2017. FINDINGS: Lung volumes are normal. There is no pneumothorax or pleural effusion. There is no consolid ation or evidence for pulmonary edema. Cardiac size is normal. Mediastinal contours are unremarkable. IMPRESSION: No acute cardiopulmonary findings. Electronically signed by: Morris Myers M.D. 11/18/2018 6:42 AM
--- NOTE | 2018-11-18 06:51 | CT Scan Report ---
CT head/brain wo con CLINICAL HISTORY: 73 years-old Female presenting with headache, weakness. TECHNIQUE: Multidetector CT imaging of the head was performed without the use of intravenous contrast . IV contrast: None. One or more dose lowering techniques were used consistent with the principles of ALARA (as low as reasonably achievable), including automatic exposure control, mA or kV adjustment t o individual patient size, and/or use of iterative reconstruction. COMPARISON: 10/24/2017. CT DOSE (mGy.cm): The estimated cumulative dose is 537.48 mGy.cm. FINDINGS: Service Observer Chief topogram: Unremarkable. Ventricles and sulci normal in size. No hemorrhage. Periventricular and subcortical white matter hypo attenuation, nonspecific but likely indicative of chronic small vessel ischemic change. No acute terr itorial infarct. No mass effect or midline shift. No extra-axial fluid collection. Paranasal sinuses and mastoid air cells clear. Calvarium intact. IMPRESSION: 1. Chronic small vessel ischemic change. No acute intracranial abnormality. Electronically signed by: Humberto Mendez M.D. 11/18/2018 6:50 AM
--- NOTE | 2018-11-18 09:05 | Ultrasound Report ---
ULTRASOUND KIDNEYS AND BLADDER CLINICAL HISTORY: Acute renal insufficiency. COMPARISON STUDY: Abdominal CT dated 08/19/2010. TECHNIQUE: Real-time, grayscale, and color flow sonography of the kidneys and bladder is performed. I mages are reviewed in the transverse and longitudinal planes. FINDINGS: Kidneys: The kidneys are normal in size and echotexture. The right kidney measures 10.2 x 5.0 x 5.3 c m and the left kidney measures 10.4 x 4.4 x 4.6 cm. There is no hydronephrosis. No shadowing renal c alculi are identified. A parapelvic cyst on the left measures up to 2.2 cm. There is no sonographic e vidence of contour deforming renal mass lesion. No perinephric fluid is identified. Bladder: The partially decompressed bladder is grossly unremarkable. Bilateral ureteral jets were see n. IMPRESSION: Unremarkable sonographic assessment of the kidneys and bladder. Electronically signed by: Angel Diaz M.D. 11/18/2018 9:03 AM
[2018-11-18] MEDS: METOPROLOL SUCC 25MG EXT REL TAB PO SCH (09:23)
[2018-11-18] MEDS: APIXABAN 5 MG TABLET PO SCH ×2 (09:24→20:27)
--- NOTE | 2018-11-18 13:03 | Hospitalist Progress Note ---
Date of Service November 18, 2018 Assessment & Plan (1) Weakness: Possibly hypoglycemia (on a diet and eating small, low-carb meals) vs. low BP (BP well-controlled in the hospital, so maybe overtreatment?) vs. dehydration (though she says she's drinking a lot of water on her diet). Now with no focal weakness at present. - Continue to monitor - Ambulate a tolerated (2) JOVANI (acute kidney injury): Patient with BUN=31, Cr=1.39, ratio of 22.5. She appeared euvolemic on exam. No history of volume depletion or GI losses. Renal u/s on 11/18 was entirely normal. - Cr down to 1.15 on 11/18. - Possibly mild dehydration though, as above, unclear how given her good PO intake. (3) Hypertension: Blood pressure well controlled at present. - Holding lisinopril 40mg daily - Continue metoprolol (4) Dyslipidemia: Chronic. - Continue Atorvastatin 40mg po daily (5) Atrial fibrillation: Rate controlled at present, sinus rhythm with occasional ectopy. - Continue Eliquis 5mg po BID - Continue Metoprolol succinate 25mg po daily - Continue to monitor (6) Anxiety: Chronic. Well-controlled. - Continue Ativan 1mg po daily PRN Subjective No further weakness or shaking. Review of Systems Review of Systems: All systems reviewed & are unremarkable except as noted in HPI & below Physical Exam Constitutional: WD/WN, vitals as above Eyes: EOM intact bilaterally; no conjunctival abnormality ENMT: external ear and nose normal, oropharynx normal Neck: trachea midline, no thyromegaly normal visual inspection Respiratory: normal respiratory effort, lungs clear to auscultation no respiratory distress Cardiovascular: RRR, no murmur, no edema Gastrointestinal (Abdomen): Inspection/Auscultation: abdomen normal to inspection; abdomen not distended Musculoskeletal: no cyanosis or clubbing, extremities motor strength 5/5 Skin: no rashes, warm and dry Neurologic: moves all extremities and awake Psychiatric: Orientation: alert, oriented to person and cooperative Results & Data Vital Signs (Past 12 Hours) Vital Signs Temp Pulse Pulse Resp BP BP Pulse Ox 11/18/18 12:04 36.4 C L 88 17 145/87 H 94 11/18/18 09:22 36.7 C 97 H 16 113/66 99 11/18/18 02:12 75 11/18/18 02:00 36.6 C 81 18 136/63 98 11/18/18 01:46 84 18 143/78 H 98 (1) Hypertension Hypertension type: essential hypertension Qualified Code(s): I10 - Essential (primary) hypertension (2) Atrial fibrillation Atrial fibrillation type: paroxysmal Qualified Code(s): I48.0 - Paroxysmal atrial fibrillation
[2018-11-18] MEDS ORDERED: ATORVASTATIN 40 MG TAB PO SCH (21:00)
[2018-11-19 07:18] LABS: Basophils # (auto) 0.08 K/uL (0-0.2); Basophils % (auto) 1.7 %; Eosinophils # (auto) 0.14 K/uL (0-0.5); Eosinophils % (auto) 3.1 %; Hematocrit (blood only) 42.7 % (37-47); Hemoglobin 14.7 g/dL (12.0-16.0); Immature Granulocytes # (auto) 0.01 K/uL (0.00-0.02); Immature Granulocytes % (auto) 0.2 %; Lymphocytes # (auto) 2.16 K/uL (1.2-3.4); Lymphocytes % (auto) 47.2 %; Mean Corpuscular Hgb Conc 34.4 g/dL (32-36); Mean Corpuscular Volume 89.3 fL (80-100); Mean Platelet Volume 10.8 fL (7.4-10.4); Monocytes # (auto) 0.49 K/uL (0.11-0.59); Monocytes % (auto) 10.7 %; Neutrophils % (auto) 37.1 %; Platelet Count 194 K/uL (130-400); RDW Coefficient of Variation 14.8 % (11.5-14.5); RDW Standard Deviation 48.3 fL (36.4-46.3); Red Blood Count 4.78 M/uL (4.2-5.4); White Blood Count 4.58 K/uL (4.8-10.8)
[2018-11-19 07:54] LABS: BUN Creatinine Ratio 22.2 (10-20); Calcium 9.6 mg/dl (8.5-10.1); Creatinine Clr Calc Pharmacy 75.6 ml/min; Est GFR (African American) 70.2; Est GFR (Non-African American) 60.6; Potassium 4.4 mmol/L (3.5-5.1)
[2018-11-19] MEDS: METOPROLOL SUCC 25MG EXT REL TAB PO SCH (08:10)
[2018-11-19] MEDS: APIXABAN 5 MG TABLET PO SCH (08:10)
--- NOTE | 2018-11-19 16:47 | Discharge Summary ---
Date of Service November 19, 2018 Admission HPI Per Admitting Provider Karlene Sen is a pleasant 73yo C female with history of HTN, HLP, PAF on Eliquis anticoagulation presenting with weakness and fatigue. Patient was in her usual state of health during the day. She has been eating and drinking as usual, adequate urine output with no urinary complaints. At 21:00 she developed weakness and shaking. She also had a brief episode of bilateral neck pain. No additional complaints. She feels well at present. Denies fevers/chills/sweats, denies chest pain/palpitations/cough/SOB. Denies abdominal pain/nausea/vomiting, had a soft BM, no urinary complaints. No focal weakness. ER Course: NSS 500mL, Magnesium 1gm Principal Diagnosis Weakness caused by possible hypotension Discharge Exam Constitutional WD/WN, vitals as above Eyes EOM intact bilaterally; no conjunctival abnormality ENMT external ear and nose normal, oropharynx normal Neck trachea midline, no thyromegaly normal visual inspection Respiratory normal respiratory effort, lungs clear to auscultation no respiratory distress Cardiovascular RRR, no murmur, no edema Gastrointestinal (Abdomen) Inspection/Auscultation: abdomen normal to inspection; abdomen not distended Musculoskeletal no cyanosis or clubbing, extremities motor strength 5/5 Skin no rashes, warm and dry Neurologic moves all extremities and awake Psychiatric Orientation: alert, oriented to person and cooperative Discharge Data Allergies Allergy/AdvReac Type Severity Reaction Status Date / Time bee venom protein (honey bee) Allergy Unknown ANAPHYLAXIS Verified 11/18/18 01:48 Influenza Virus Vaccines Allergy Unknown RED/HARD Verified 11/18/18 01:48 AT SITE, SOB AND DIFF. SWALLOWING oxycodone Allergy Unknown NAUSEA Verified 11/18/18 01:48 propoxyphene Allergy Unknown SHORTNESS Verified 11/18/18 01:48 OF BREATH aspirin AdvReac Unknown Verified 11/18/18 01:48 meloxicam [From Mobic] AdvReac Unknown Verified 11/18/18 01:49 Consultations 11/18/18 00:46 ED Decision to Admit Stat Ordered Studies 11/17/18 23:42 CT head/brain wo con Urgent 11/18/18 02:00 US renal/blad retro comp Routine Hospital Course (1) Weakness: Possibly hypoglycemia (on a diet and eating small, low-carb meals) vs. low BP (BP well-controlled in the hospital, so maybe overtreatment?) vs. dehydration (though she says she's drinking a lot of water on her diet). Now with no focal weakness at present. - Most likely due to low BP. Her BP in the hospital was low-normal (100/65 to 125/75) entirely off lisinopril. Held on discharge. Her daughter will check her BP over the next few days. - Low BP possibly due to dramatic change in diet. She now eats much less salt and lower carbs/proteins. (2) JOVANI (acute kidney injury): Patient with BUN=31, Cr=1.39, ratio of 22.5. She appeared euvolemic on exam. No history of volume depletion or GI losses. Renal u/s on 11/18 was entirely normal. - Cr down to 1.15 on 11/18. - Possibly mild JOVANI from hypotension if this was the root cause of her weakness. - Resolved by discharge. (3) Hypertension: Blood pressure well controlled at present. - Holding lisinopril 40mg daily - Continue metoprolol (4) Dyslipidemia: Chronic. - Continue Atorvastatin 40mg po daily (5) Atrial fibrillation: Rate controlled at present, sinus rhythm with occasional ectopy. - Continue Eliquis 5mg po BID - Continue Metoprolol succinate 25mg po daily - Continue to monitor (6) Anxiety: Chronic. Well-controlled. - Continue Ativan 1mg po daily PRN Total Time Total Time Spent Total Time Spent (In Minutes): 35 Total Time Includes: Examination of the Patient and Communication With Other Providers Discharge Plan Discharge Items Patient Disposition: Home - Self-Care Reason For Visit: WEAKNESS,JOVANI Discharge Diagnosis: Weakness, kidney injury Condition: Fair Discharge Goals: Decrease discomfort and Diagnostic testing Activity: Resume your previous activity Non-emergency contact: Primary Care Provider Call non-emergency contact if: you have any medication questions, your symptoms worsen and your pain is not controlled Follow-up/Referrals: Garret Bernard MD [Primary Care Provider] - 11/26/18 3:00 pm (Dr. Bernard does not have any upcoming appointments available. A follow up appointment was made with MICHEAL Lynch, on SundayNovember 26 at 3:00pm in the same office building. If you have any questions or need to reschedule, please call the [facility] at [phone].) Diet: Heart Healthy Add Provider Instructions: Ms. Sen, You were admitted to the hospital with weakness and kidney injury. We believe this may have been caused by low blood pressure from your blood pressure medications. With your diet, you may not need both blood pressure medications, so we are holding your lisinopril on discharge. Please speak with Dr. Bernard to determine if you need to restart this medication at a low dose. For now, please stop it all together. Please take a lower dose of the herbal supplements for your dieting (or stop them all together). If you do decide to restart them, please take only a half dose for a week or so to be sure they do not cause any issues. If you feel the same way you did prior to coming to the hospital, please check your blood pressure and blood sugar to be sure neither is too low. Prescriptions: Continued atorvastatin 40 mg tablet 40 mg PO QPM RF: 0 metoprolol succinate 25 mg tablet extended release 24 hr 25 mg PO DAILY RF: 0 Eliquis 5 mg tablet 5 mg PO BID RF: 0 lorazepam 1 mg tablet 1 mg PO DAILY PRN (Reason: Anxiety) RF: 0 epinephrine 0.3 mg/0.3 mL auto-injector 0.3 mg IM UD PRN (Reason: Allergic Reaction) RF: 0 Centrum Silver 0.4-300-250 mg-mcg-mcg Tablet 1 tab PO DAILY RF: 0 calcium carbonate-vit D3-min 600 mg calcium- 400 unit Tablet 1 tab PO QAM RF: 0 Discontinued lisinopril 40 mg tablet 40 mg PO DAILY RF: 0 Stand-Alone Forms: My [facility], Work/School Release (Inpt) [place]/Other Patient Handouts: Dehydration Discharge Orders: Discharge Order (Routine); Ordered 11/19/18 Ordered By: Cornell Roberts Admission Data Admit Date/Time: 11/18/18 01:28 Attending Provider: Cornell Roberts Admit Provider: Leslie Bhatt Primary Care Provider: Garret Bernard Other Providers: Cornell Roberts Service: Telemetry Other Interventions: Discharge Summary Assessment (RN) Last Done: 11/19/18 11:43 DC Date/Time DO NOT enter until pt leaves facility: 11/19/18 14:37
== END 2018-11-19 14:37 | disposition home or self-care (01) | DRG 315 ==
LOC: ED 22:56 → 2E 11-18 01:28 → SUATTDRO 11-18 01:28 → 2E 11-18 01:46

== ENCOUNTER 2019-08-06 08:22 | Observation (INO) ==
--- NOTE | 2019-07-22 11:44 | PAT Medication Instructions ---
Medication Instructions Date of Service July 22, 2019 Home Medications Medication Instructions Recorded atorvastatin 40 mg tablet 40 mg PO HS #90 tab 01/08/19 lorazepam 1 mg tablet 1 mg PO DAILY PRN #90 tab 04/25/19 diclofenac sodium 1 % topical gel 4 gm TOP QID PRN #300 gm 04/29/19 Eliquis 5 mg PO BID epinephrine 0.3 mg IM UD PRN metoprolol succinate 25 mg PO QAM atorvastatin 40 mg tablet 40 mg PO HS lisinopril 40 mg tablet 40 mg PO QAM lorazepam 1 mg tablet 1 mg PO DAILY PRN diclofenac sodium 1 % topical gel 4 gm TOP QID PRN acetaminophen 500 mg PO Q6H PRN biotin 10,000 mcg PO QAM Continue as directed epinephrine 0.3 mg IM UD PRN (if needed) ASK your prescriber and surgeon Eliquis 5 mg PO BID (in order for spinal anesthesia, Eliquis needs to be stopped 3 days/72 hours before surgery. Please check if okay with doctor that prescribes this to you) STOP taking 2 weeks before surgery (or as soon as possible if surgery is within 2 weeks) biotin 10,000 mcg PO QAM STOP taking 24 hours before surgery diclofenac sodium 1 % topical gel 4 gm TOP QID PRN DO NOT take the morning of surgery lisinopril 40 mg tablet 40 mg PO QAM Take morning of surgery With a small sip of water, OTHERWISE NOTHING TO EAT OR DRINK AFTER MIDNIGHT: metoprolol succinate 25 mg PO QAM lorazepam 1 mg tablet 1 mg PO DAILY PRN (if needed) acetaminophen 500 mg PO Q6H PRN (okay to take up to 4 hours prior to surgery if needed) Take evening before surgery atorvastatin 40 mg tablet 40 mg PO HS lorazepam 1 mg tablet 1 mg PO DAILY PRN (if needed) acetaminophen 500 mg PO Q6H PRN (if needed) Other Notes If you have any questions please call us at [phone] or [phone] or [phone] or [phone]
--- NOTE | 2019-07-23 08:24 | Anesthesiology Consultation ---
Date of Service July 23, 2019 Assessment & Plan (1) Encounter for pre-operative examination: Chart Review Chart Review: Acceptable Risk for Surgery and Patient seen in Pre Admission Testing Teaching & Discussion Pre-Anesthesia Teaching/Discussion Notes: Instructed NPO after midnight before surgery,except medications with 15 cc of water. Medication instructions provided according to the PAT guidelines. History Surgery Operation Date: 08/06/19 08:50 Proposed Procedures p Left Total Knee Arthroplasty - Sammy Bhatt MD Height/Weight Height: 5 ft 6 in Weight: 123.1 kg Allergies Allergy/AdvReac Type Severity Reaction Status Date / Time bee venom protein (honey bee) Allergy Unknown ANAPHYLAXIS Verified 07/21/19 08:36 Influenza Virus Vaccines Allergy Unknown RED/HARD Verified 07/21/19 08:36 AT SITE, SOB AND DIFF. SWALLOWING oxycodone Allergy Unknown NAUSEA Verified 07/21/19 08:36 propoxyphene Allergy Unknown SHORTNESS Verified 07/21/19 08:36 OF BREATH aspirin AdvReac ON ELIQUIS Verified 07/21/19 08:36 meloxicam [From Mobic] AdvReac ON ELIQUIS Verified 07/21/19 08:36 Medications Home Medications Medication Instructions Recorded Confirmed Last Taken Eliquis 5 mg PO BID 11/18/18 07/21/19 11/17/18 epinephrine 0.3 mg IM UD PRN 11/18/18 07/21/19 Unknown metoprolol succinate 25 mg PO QAM 11/18/18 07/21/19 Unknown atorvastatin 40 mg tablet 40 mg PO HS #90 tab 01/08/19 07/21/19 Unknown lisinopril 40 mg tablet 40 mg PO QAM 04/22/19 07/21/19 Unknown lorazepam 1 mg tablet 1 mg PO DAILY PRN #90 tab 04/25/19 07/21/19 Unknown diclofenac sodium 1 % topical gel 4 gm TOP QID PRN #300 gm 04/29/19 07/21/19 Unknown acetaminophen 500 mg PO Q6H PRN 07/21/19 07/21/19 Unknown biotin 10,000 mcg PO QAM 07/21/19 07/21/19 Unknown Past Medical History Medical History (Updated 07/23/19 @ 14:43 by Deloris Umaña PA-C) Anxiety History of melanoma Hyperlipidemia Hypertension Joint pain, knee Morbid obesity Muscle spasm LEFT CALF -- DUE KNEE ISSUES- OCCURS OCC - NO SWELLING, ERYTHEMA, OR WARMTH- NO CURRENT ISSUES AT PAT APPT Osteoarthritis Paroxysmal atrial fibrillation TIA on medication Possible- occurred two years ago- having tingling in fingers bilaterally- was admitted- no issues noted with testing - no issues since Exercise / Class Metabolic Activity III < 4 Walking/Shop/Light housework (limited activity with knee pain- no SOB or chest pain with ambulating on flat surface- mild SOB with stairs ) Past Family History Family History Grandmother (Maternal) FHx: diabetes mellitus Past Surgical History Surgical History History of cholecystectomy Hx of arthroscopy of left knee Hx of cataract extraction Hx of colonoscopy Hx of melanoma excision Past Anesthesia History No Hx of Anesthesia Complications and No Family Hx of Anesthesia Complications History of PONV No Hx of PONV and No Hx of Motion Sickness Social History Smoking Status: Never smoker Hx Alcohol Use: No Alcohol type: wine alcohol intake frequency: holidays/special occasions only Hx Substance Use: No Review of Systems Mild ALTAMIRANO- stable/chronic Mild snoring - no apnea Possible of TIA - two years ago- no issues since Patient denies chest pain, shortness of breath at rest, reflux, cough, wheezing, palpitations. No hx of seizures, MN, apnea/snoring. No hx of blood clots or blood transfusions No recent steroid use Physical Exam Vital Signs VITALS BP 130/83 P 58 TEMP 97.6 SP02 97% RESP 16 Constitutional no acute distress ENMT Mouth: no TMJ clicking Thyromental Distance: > or= 3.5 Finger Breadths (3.5) Mallampati Class: II Full upper denture, partial lower denture Neck neck extension not limited Respiratory normal respiratory effort; no respiratory distress Auscultation: lungs clear to auscultation bilaterally; no diminished lung sounds and no wheezes Cardiovascular Rate/Rhythm: regular rate and regular rhythm Heart Sounds: no murmur Vessels: no carotid bruit Extremities: no edema Musculoskeletal Spine: + pain with cervical ROM (mild) Neurologic moves all extremities Psychiatric Orientation: alert Testing Laboratory Results 07/23/19 08:38 PT 10.6 Seconds (9.0-12.0) 07/23/19 08:38 INR 1.0 (0.9-1.1) 07/23/19 08:38 APTT 30.1 Seconds (21.0-31.0) 07/23/19 08:38 Blood Type A Positive 07/23/19 08:38 Antibody Screen NEGATIVE 07/23/19 08:38 SODIUM: 142 POTASSIUM: 4.1 CHLORIDE: 108 CO2: 31.0 BUN: 21.3 CREATININE: 0.78 GLUCOSE: 96 Electrocardiogram Date: 07/23/19 Findings: + NSR @ (63) Chest X-Ray Date: 11/17/18 Findings: + NAD
[2019-07-23 10:12] LABS: Basophils # (auto) 0.06 K/uL (0-0.2); Basophils % (auto) 1.1 %; Eosinophils # (auto) 0.11 K/uL (0-0.5); Hematocrit (blood only) 43.6 % (37-47); Hemoglobin 14.1 g/dL (12.0-16.0); Immature Granulocytes # (auto) 0.03 K/uL (0.00-0.02); Immature Granulocytes % (auto) 0.6 %; Lymphocytes # (auto) 1.78 K/uL (1.2-3.4); Lymphocytes % (auto) 32.9 %; Mean Corpuscular Hgb Conc 32.3 g/dL (32-36); Mean Corpuscular Volume 95.8 fL (80-100); Mean Platelet Volume 10.4 fL (7.4-10.4); Monocytes # (auto) 0.58 K/uL (0.11-0.59); Monocytes % (auto) 10.7 %; Neutrophils # (auto) 2.85 K/uL (1.4-6.5); Neutrophils % (auto) 52.7 %; Platelet Count 240 K/uL (130-400); RDW Coefficient of Variation 15.4 % (11.5-14.5); RDW Standard Deviation 53.8 fL (36.4-46.3); Red Blood Count 4.55 M/uL (4.2-5.4); White Blood Count 5.41 K/uL (4.8-10.8)
[2019-07-23 10:29] LABS: Partial Thromboplastin Ratio 1.1; Partial Thromboplastin Time 30.1 Seconds (21.0-31.0); Prothrombin Time 10.6 Seconds (9.0-12.0)
--- NOTE | 2019-07-23 12:41 | Electrocardiogram Report ---
Test Reason : Blood Pressure : / mmHG Vent. Rate : 063 BPM Atrial Rate : 063 BPM P-R Int : 174 ms QRS Dur : 090 ms QT Int : 438 ms P-R-T Axes : 064 -23 031 degrees QTc Int : 448 ms Normal sinus rhythm Normal ECG When compared with ECG of 17-NOV-2018 23:18, Premature atrial complexes are no longer Present Confirmed by Harris Abreu ([id number]) on 07/23/2019 12:41:39 PM Referred By: Sammy Bhatt Confirmed By:Harris Abreu
[~2019-08-06 08:22] MED LIST changes: +ACETAMINOPHEN 500 MG TAB PO SCH; -ANT25 PO; -ATOR-24 PO; -ATV/1 PO; +BUPIVACAINE 0.5 % 5 MG/1 ML PF 10ML VIAL ONE; +BUPIVACAINE LIPOSOME/PF 266 MG, BUPIVACAINE/EPINEPHRINE 50 ML, SODIUM CHLORIDE 0.9% 30 ... INFIL SCH; +BUPIVACAINE/EPINEPHRINE 0.25% 1:200,000 30 ML VIAL ONE; -CALC600T9 PO; +CEFAZOLIN 3000MG 72.5 ML IV SCH; -CHOL100010 PO; +DEXAMETHASONE SOD INJ 4 MG/ML VIAL ONE; -DICL1GEL12 EXT; -EPP3/2 IM; +FAMOTIDINE 20 MG TAB PO SCH; +GABAPENTIN 300 MG CAP PO SCH; +LR 500ML BOLUS, THEN 15ML/HR IV SCH; +LR 60ML/HR IV SCH; -MELO15TA10 PO; +METOCLOPRAMIDE HCL 10 MG TABLET PO SCH; -MULTTAB5 PO; -PLV75 PO
--- NOTE | 2019-08-06 09:01 | History & Physical Bridge Note ---
Date of Service August 06, 2019 History & Physical Bridge Note I have examined the patient, reviewed the History & Physical and in the interval since the performance of the History & Physical I have noted the following changes of clinical significance: no changes noted
[2019-08-06] MEDS ORDERED: ONDANSETRON INJ 2 MG/ML 2 ML VIAL IV PRN ×2 (10:25→15:55)
[2019-08-06] MEDS ORDERED: fentaNYL citrate 100 MCG/2 ML VIAL IV PRN (10:25)
[2019-08-06] MEDS ORDERED: ATROPINE SULFATE 0.1 MG/ML 10ML SYR IV PRN (10:25)
[2019-08-06] MEDS ORDERED: ePHEDrine sulfate 50 MG/ML AMP IV PRN (10:25)
[2019-08-06] MEDS ORDERED: MIDAZOLAM HCL 1 MG/ML 2ML VIAL ONE (10:28)
[2019-08-06] MEDS ORDERED: fentaNYL citrate 100 MCG/2 ML VIAL ONE (10:29)
[2019-08-06] MEDS ORDERED: TRANEXAMIC ACID / 0.7% NACL 1000MG/100ML BAG IV ONE (10:35)
[2019-08-06] MEDS ORDERED: TRANEXAMIC ACID / 0.7% NACL 1,000 MG/100 ML BAG IV STA (10:35)
[2019-08-06] MEDS ORDERED: SODIUM CHLORIDE 0.9% PF 50 ML VIAL ONE (11:09)
[2019-08-06] MEDS ORDERED: BUPIVACAINE/EPINEPHRINE 0.25% 1:200,000 30 ML VIAL ONE (11:09)
[2019-08-06] MEDS ORDERED: BACITRACIN INJ 50,000 UNIT VIAL ONE (11:10)
[2019-08-06] MEDS ORDERED: BUPIVACAINE LIPOSOME 1.3% 266 MG/20 ML VIAL ONE (11:10)
[2019-08-06] MEDS ORDERED: PROPOFOL IV EMULSION 10 MG/ML 20 ML VIAL IV ONE (11:38)
[2019-08-06] MEDS ORDERED: PHENYLEPHRINE HCL 10 MG/ML VIAL ONE (12:27)
[2019-08-06] MEDS ORDERED: LIDOCAINE HCL 2% 2 ML VIAL/AMP(20MG/ML) INFIL ONE (12:55)
--- NOTE | 2019-08-06 13:17 | Post Operative Brief Note ---
PG Immediate Post Op with CF Date of Surgery August 06, 2019 Pre & Post Diagnosis Operation Date: 08/06/19 10:40 Pre-Op Diagnosis: Left Knee Degenerative Joint Disease w/Knee pain Post-Op Diagnosis: Left Knee Degenerative Joint Disease w/Knee pain I identified the patient and participated in the time-out.: Yes Procedure Operation Date: 08/06/19 10:40 Actual Procedures p Left Total Knee Arthroplasty(Left) - Sammy Bhatt MD Surgeon Sammy Bhatt MD Director Sports [place], [facility] Estimated Blood Loss 50 Findings Consistent with Post-Op Diagnosis Fluids 1700 cc Specimens Specimen Description: Permanent Specimen: A) Left Knee Bone and Tissue Drains Riley Catheter Anesthesia Type Spinal MAC Complications none Disposition Accompanied Patient To Recovery: No Disposition: Recovery Room
--- NOTE | 2019-08-06 14:14 | XRay Report ---
XR knee LT 1 or 2V routine CLINICAL HISTORY: Surgical Post Op COMPARISON: None FINDINGS: Alignment of the total left knee arthroplasty is anatomic. There is no periprosthetic frac ture or unexpected radiopaque foreign body. There are skin allen. IMPRESSION: Expected findings following total left knee arthroplasty. ACT 112: Negative or not required by law. Electronically signed by: Morris Myers M.D. 08/06/2019 2:13 PM
--- NOTE | 2019-08-06 15:16 | Anesthesiology Progress Note ---
Date of Service August 06, 2019 Anesthesia Post Procedure Vital Signs Vital Signs: Temp Pulse Pulse Resp BP Pulse Ox 08/06/19 15:05 71 16 128/80 98 08/06/19 14:50 68 16 136/78 97 08/06/19 14:35 72 17 117/68 96 08/06/19 14:25 70 16 109/69 96 08/06/19 14:15 68 22 106/66 96 08/06/19 14:05 71 20 101/64 98 08/06/19 13:50 36.4 C L 71 16 96/59 L 95 08/06/19 13:40 74 18 91/55 L 93 08/06/19 13:30 72 15 92/52 L 96 08/06/19 13:27 36 C L 85 16 82/60 L 99 08/06/19 09:17 36.5 C 78 20 123/80 Pain Intensity Left Calf: Pain Intensity: 6 Transfer of Care Handoff Completed per policy Notes Mental Status: alert / awake / arousable Patient Amnestic to Procedure: Yes Nausea / Vomiting: adequately controlled Pain: adequately controlled Airway Patency, RR, SpO2: stable & adequate BP & HR: stable & adequate Hydration State: stable & adequate Neuraxial Anesthesia: was administered and sensory block is resolving Anesthetic Complications: no major complications apparent
[2019-08-06] MEDS ORDERED: HYDROmorphone HCL 2 MG TAB PO PRN (15:55)
[2019-08-06] MEDS ORDERED: bisacodyL 10 MG SUPP PR PRN (15:55)
[2019-08-06] MEDS ORDERED: EPINEPHRINE ADULT AUTO-INJECT 0.3 MG SYR IM PRN (15:55)
[2019-08-06] MEDS ORDERED: SODIUM CHLORIDE 0.9% 1000ML 1,000 ML IV SCH (15:55)
[2019-08-06] MEDS ORDERED: DICLOFENAC SOD 1% GEL 100 GM TUBE EXT PRN (15:55)
[2019-08-06] MEDS ORDERED: HYDROmorphone INJ 0.5 MG/0.5 ML SYR IV PRN (15:55)
[2019-08-06] MEDS ORDERED: NALOXONE HCL 0.4 MG/1 ML VIAL/CARP IV PRN (15:55)
[2019-08-06] MEDS ORDERED: METOCLOPRAMIDE HCL INJ 5 MG/ML 2 ML VIAL IV PRN (15:55)
[2019-08-06] MEDS ORDERED: MAGNESIUM HYDROXIDE SUSP 30 ML UDC PO PRN (15:55)
[2019-08-06] MEDS ORDERED: ALUMINUM/MAGNESIUM SUSP 30 ML UDC PO PRN (15:55)
[2019-08-06] MEDS: ACETAMINOPHEN 500 MG TAB PO SCH ×2 (16:23→21:46)
--- NOTE | 2019-08-06 17:31 | Operative Report ---
Post Operative Report Pre & Post Diagnosis Operation Date: 08/06/19 10:40 Pre-Op Diagnosis: Left Knee Degenerative Joint Disease w/Knee pain Post-Op Diagnosis: Left Knee Degenerative Joint Disease w/Knee pain I identified the patient and participated in the time-out.: Yes Procedure Operation Date: 08/06/19 10:40 Actual Procedures p Left Total Knee Arthroplasty(Left) - Sammy Bhatt MD Surgeon Sammy Bhatt MD Area Director Of Home Health Sales [place], ANAHI Estimated Blood Loss 50 Findings Consistent with Post-Op Diagnosis Operative findings with advanced left knee DJD. She had grade 4 [id number] disease in all 3 compartments most severe in the lateral side. She had eburnation of the lateral femoral condyle lateral tibial plateau. She had a fixed valgus deformity to her knee. She had osteophytes in all 3 compartments and diffuse osteopenia. Fluids 1700 cc. Specimens Left knee sent for pathology. Drains None. Anesthesia Type Spinal MAC Complications none Disposition Accompanied Patient To Recovery: No Disposition: Recovery Room Indications Patient is a 73-year-old female is had a long history of bilateral knee pain discomfort. We have been treating for years with injections which is become less successful over time. He started to really limit her ability to maintain a degree of active lifestyle. The left knee was by the more than the right. X- ray showed a severe left knee DJD. She elected proceed with surgical treatment. Description of Procedure Operative implants consist of: 1. Biomet Vanguard size 62.5 left posterior by femoral component. 2. Biomet size 71 tibial tray. 3. 10 mm posterior bite polyethylene insert. 4. 28 x 8 all poly-patella. Patient was taken to the operating room identified and placed on the operating table supine position protectors were properly padded. IV antibiotics arrived by anesthesia team. A spinal anesthetic and abductor canal block had provided in the holding area. Riley catheter was placed in sterile fashion. A left thigh turn was then placed in the left lower extremities and prepped and draped in usual sterile fashion. The left leg was elevated and exsanguinated with use of an Esmarch and turns placed at 300 mmHg. An anterior posterior left knee was then performed the longitudinal incision centered over the patella. Sharp dissection was cut through subcutaneous tissue down below the extensor mechanism. A medial parapatellar arthrotomy incision was made. Some subperiosteal dissection was carried out medially. The fat pad was resected from each patella tendon. Lateral patellofemoral ligament was released. Patella was subluxated laterally and the knee was flexed. The osteophytes were taken off the distal femur. The ACL and PCL were then released from distal femur the tibia subluxated anteriorly. The external tibial alignment jig was then placed in the interface the tibia and adjusted 12 mm medially. Proximal tibial cut was made to move about 3 to 4 mm of bone from the medial side. Tibia was then sized to a size 71. I did try and maximize coverage due to her diffuse osteopenia and wanted to decrease the risk of subsidence. Attention drawn the femur. The distal femur was entered with a sharp drop with intramedullary canal was suction. A left 5 degree valgus cutting guide was placed but distal femoral cutting block was pinned in place but distal femoral cut was made to take an additional 3 mm of bone off distal femur. Femur was then sized to a size 62.5. The AP cutting block was pinned parallel to the epicondylar axis which was 6 degrees of external rotation. Anterior cut, anterior chamfer, posterior cut, posterior chamfer cuts were made. Box cutting guide was placed in a just slight lateral box cut was made. The knee was flexed for the remnants of the medial lateral menisci were excised. The osteophytes were taken off the posterior aspect of the femur. I did release the popliteus knee in order to equalize the flexion gap and also release some the IT band to equalize the extension gap. A trial femoral component was placed but the tibial tray was pinned in maximum external rotation and the drill and stem punch were used to create defect in proximal tip for the tibial tray. Knee was then trialed and the 10 mm insert fit most appropriately. Attention drawn the patella. Patella was cleaned of all soft tissues. Patella thickness measured 21 mm in thickness was cut down to 13. Size a size 28 patella. Locals were drilled for the 28 patella. Lateral osteophyte is moved. Patella button was placed. Knee was taken through range of motion and patella tracked nicely with no thumbs test. Attention drawn to place the permanent components. All trial components were removed. Bone plug was placed in the distal femur limit blood loss put a double batch Palacos G cement was mixed. BiomEthosGenguard size 62.5 left posterior by femoral component, size 71 tibial tray, a 10 mm posterior box polyethylene insert, and a 28 x 8 all poly-patella were then cemented in place. Knee was brought out into full extension total cement hardened. Final cement check was then performed. Pericapsular tissues were injected with a total of 100 cc of combination of 20 cc of Exparel, 30 cc of normal saline, 50 cc of quarter percent Marcaine with epinephrine. Patient did receive 1 g of tranexamic acid. The tourniquet was then let down for final tourniquet time 56 minutes but hemostasis assured use electrocautery. Extensor mechanism then closed with combination 1 PDS suture #1 Vicryl suture in [id number] fashion. The extensor mechanism checked found to be intact with subcutaneous tissues then closed with 2 Dexon suture in a buried interrupted fashion skin was closed skin allen. Leg was then cleaned dried a sterile dressing composed of Xeroform, 4 x 4's, sterile cast padding, Pérez bandage were applied. Patient transferred to the recovery room in stable condition. Patient tolerated the procedure well there are no complications. I attest to the content of the Intraoperative Record and any orders documented therein. Any exceptions are noted below.
[2019-08-06] MEDS: KETOROLAC TROMETHAMINE 15 MG/ML VIAL IV SCH ×2 (17:46→23:53)
[2019-08-06] MEDS: FERROUS GLUCONATE 324 MG TAB PO SCH (17:47)
[2019-08-06] MEDS: ASCORBIC ACID 500 MG TAB PO SCH (17:47)
[2019-08-06] MEDS ORDERED: Nursing to Pharmacy Communication ONE (18:06)
[2019-08-06] MEDS ORDERED: lisinopriL 40 MG TAB PO SCH (18:30)
[2019-08-06] MEDS: ATORVASTATIN 40 MG TAB PO SCH (20:47)
[2019-08-06] MEDS: CEFAZOLIN 2000MG 2,000 MG/15 ML SYR IV SCH (20:47)
[2019-08-06] MEDS: SENNA 8.6 MG TAB PO SCH (20:48)
[2019-08-06] MEDS: DOCUSATE SODIUM 100 MG CAP PO SCH (20:48)
[2019-08-06] MEDS: TRAMADOL HCL 50 MG TABLET PO PRN (22:10)
[2019-08-07] MEDS: TRAMADOL HCL 50 MG TABLET PO PRN ×4 (05:01→22:59)
[2019-08-07] MEDS: ACETAMINOPHEN 500 MG TAB PO SCH ×3 (05:02→20:55)
[2019-08-07] MEDS: CEFAZOLIN 2000MG 2,000 MG/15 ML SYR IV SCH (05:02)
[2019-08-07] MEDS: KETOROLAC TROMETHAMINE 15 MG/ML VIAL IV SCH ×2 (05:02→12:10)
[2019-08-07 06:20] LABS: Hematocrit (blood only) 40.7 % (37-47); Hemoglobin 13.6 g/dL (12.0-16.0); Mean Corpuscular Hemoglobin 31.1 pg (25-34); Mean Corpuscular Hgb Conc 33.4 g/dL (32-36); Mean Corpuscular Volume 93.1 fL (80-100); Mean Platelet Volume 10.1 fL (7.4-10.4); Platelet Count 177 K/uL (130-400); RDW Coefficient of Variation 14.6 % (11.5-14.5); RDW Standard Deviation 50.1 fL (36.4-46.3); Red Blood Count 4.37 M/uL (4.2-5.4); White Blood Count 7.64 K/uL (4.8-10.8)
[2019-08-07 06:53] LABS: BUN Creatinine Ratio 21.2 (10-20); Calcium 8.8 mg/dl (8.5-10.1); Creatinine Clr Calc Pharmacy 67.4 ml/min; Est GFR (African American) 62.9; Est GFR (Non-African American) 54.3
--- NOTE | 2019-08-07 08:09 | Anesthesiology Progress Note ---
Date of Service August 07, 2019 Anesthesia Post Procedure Vital Signs Vital Signs: Temp Pulse Pulse Pulse Resp BP BP 08/07/19 07:30 36.6 C 71 16 106/71 08/07/19 03:48 36.9 C 65 20 106/66 08/06/19 23:54 36.8 C 85 14 121/73 08/06/19 19:22 36.9 C 78 12 130/80 08/06/19 18:24 80 18 129/82 08/06/19 17:35 36.8 C 81 20 157/94 H 08/06/19 16:41 36.4 C L 18 143/86 H 08/06/19 16:03 36.3 C L 18 147/89 H 08/06/19 15:37 36.6 C 20 143/86 H 08/06/19 15:20 84 14 123/74 08/06/19 15:05 71 16 128/80 08/06/19 14:50 68 16 136/78 08/06/19 14:35 72 17 117/68 08/06/19 14:25 70 16 109/69 08/06/19 14:15 68 22 106/66 08/06/19 14:05 71 20 101/64 08/06/19 13:50 36.4 C L 71 16 96/59 L 08/06/19 13:40 74 18 91/55 L 08/06/19 13:30 72 15 92/52 L 08/06/19 13:27 36 C L 85 16 82/60 L 08/06/19 09:17 36.5 C 78 20 123/80 Pulse Ox 08/07/19 07:30 94 08/07/19 03:48 96 08/06/19 23:54 96 08/06/19 19:22 95 08/06/19 18:24 93 08/06/19 17:35 96 08/06/19 16:41 99 08/06/19 16:03 92 08/06/19 15:37 97 08/06/19 15:20 97 08/06/19 15:05 98 08/06/19 14:50 97 08/06/19 14:35 96 08/06/19 14:25 96 08/06/19 14:15 96 08/06/19 14:05 98 08/06/19 13:50 95 08/06/19 13:40 93 08/06/19 13:30 96 08/06/19 13:27 99 08/06/19 09:17 Pain Intensity Left Calf: Pain Intensity: 3 Left Leg: Pain Intensity: 2 Notes Mental Status: alert / awake / arousable Patient Amnestic to Procedure: Yes Nausea / Vomiting: adequately controlled Pain: adequately controlled Airway Patency, RR, SpO2: stable & adequate BP & HR: stable & adequate Hydration State: stable & adequate Neuraxial Anesthesia: was administered and sensory block is resolving (pt has residual numbness on bottom middle of Left foot; ) Anesthetic Complications: no major complications apparent and Pt Satisfied with anesthetic care
[2019-08-07] MEDS ORDERED: NON-FORMULARY MEDICATION (Biotin 10,000 MCG) PO SCH (09:00)
[2019-08-07] MEDS: MULTIVITAMIN TAB PO SCH (09:13)
[2019-08-07] MEDS: FERROUS GLUCONATE 324 MG TAB PO SCH ×2 (09:13→18:01)
[2019-08-07] MEDS: ASCORBIC ACID 500 MG TAB PO SCH ×2 (09:13→18:01)
[2019-08-07] MEDS: DOCUSATE SODIUM 100 MG CAP PO SCH ×2 (09:13→20:55)
[2019-08-07] MEDS: lisinopriL 40 MG TAB PO SCH (09:14)
[2019-08-07] MEDS: METOPROLOL SUCC 25MG EXT REL TAB PO SCH (09:14)
--- NOTE | 2019-08-07 17:48 | Progress Note ---
DATE: 08/07/2019 SUBJECTIVE: 73-year-old white female postop day 1 from left knee replacement. She is doing well. Some pain, but very manageable. Therapy went pretty well. No chest pain or shortness of breath. Not feeling dizzy or lightheaded. OBJECTIVE: VITAL SIGNS: Temperature 36.8. Vital signs k GENERAL: Pleasant elderly female. She is lying in bed, looks pretty comfortable. EXTREMITIES: Examination of the left leg reveals it to be well aligned. Dressing is clean, dry and intact. She can dorsiflex and plantarflex her foot appropriately. She is neurologically intact. LABORATORY DATA: Hemoglobin is 13.6. Hematocrit is 40.7. Electrolytes are stable. ASSESSMENT: 73-year-old white female postop day 1 from left knee replacement, doing pretty well. Pain is controlled. She is neurologically intact. PLAN: 1. DVT prophylaxis including thigh-high TEDs, SCDs, and back on Eliquis. We will put her on a prophylactic dose for the next 2 days and then a therapeutic dose after that. 2. PT/OT. Weight bear as tolerated. Left total knee protocol. 3. Pain control, doing well with current pain regimen. 4. Disposition: Plan is to discharge her to home with some home health once adequately recovered and medically stable.
[2019-08-07] MEDS: APIXABAN 2.5 MG TAB PO SCH (18:01)
[2019-08-07] MEDS: ATORVASTATIN 40 MG TAB PO SCH (20:55)
[2019-08-07] MEDS: SENNA 8.6 MG TAB PO SCH (20:55)
[2019-08-08] MEDS: ACETAMINOPHEN 500 MG TAB PO SCH (05:01)
--- NOTE | 2019-08-08 08:09 | Progress Note ---
DATE: 08/08/2019 SUBJECTIVE: A 73-year-old white female postop day 2 from left knee replacement. Pretty painful last night, but doing better this morning. Denies any chest pain or shortness of breath. Not feeling dizzy or lightheaded. OBJECTIVE: VITAL SIGNS: Temperature 36.5. Vital signs stable. GENERAL: Shows a pleasant elderly female. She is sitting at her bedside dangling her legs over the edge of bed, and looks pretty comfortable. EXTREMITIES: Examination of the left leg reveals the dressing to be clean, dry and intact. She can dorsiflex and plantarflex her foot appropriately. She is neurologically intact. ASSESSMENT: A 73-year-old white female postop day 2 from left knee replacement, doing pretty well. She is having some moderate pain intermittently, but responded to pain meds and nothing out of the ordinary. She is neurologically intact. PLAN: 1. DVT prophylaxis including thigh-high TEDs, SCDs, and aspirin twice a day. 2. PT/OT. Weight bear as tolerated. Left total knee protocol. 3. Pain control, doing pretty well with current pain regimen. 4. Disposition: Plan to discharge to home with some home health later today.
[2019-08-08] MEDS: ASCORBIC ACID 500 MG TAB PO SCH (09:01)
[2019-08-08] MEDS: FERROUS GLUCONATE 324 MG TAB PO SCH (09:01)
[2019-08-08] MEDS: DOCUSATE SODIUM 100 MG CAP PO SCH (09:01)
[2019-08-08] MEDS: APIXABAN 2.5 MG TAB PO SCH (09:02)
[2019-08-08] MEDS: MULTIVITAMIN TAB PO SCH (09:02)
[2019-08-08] MEDS: lisinopriL 40 MG TAB PO SCH (09:03)
[2019-08-08] MEDS: METOPROLOL SUCC 25MG EXT REL TAB PO SCH (09:05)
[2019-08-08] MEDS: TRAMADOL HCL 50 MG TABLET PO PRN (09:07)
--- NOTE | 2019-08-12 14:38 | Discharge Summary ---
ADMITTING PHYSICIAN AND SURGEON: Dr. Sammy Bhatt. ADMITTING DIAGNOSIS: Left knee degenerative joint disease. SURGERY PERFORMED: Left total knee arthroplasty. SECONDARY DIAGNOSES: Hypertension, elevated cholesterol, atrial fibrillation, obesity, melanoma. CONSULTS: None obtained. HISTORY AND PHYSICAL EXAMINATION: Well documented in the patient's chart. HOSPITAL COURSE: The patient was admitted on 08/06/2019 underwent total knee arthroplasty, tolerated the procedure well. There were no complications. She was transferred to the PACU postoperatively and later to the orthopedic floor for further care. She was given Ancef for antibiotic prophylaxis, GABBIE stockings, SCDs and resumed Eliquis. Hemoglobin, hematocrit and vital signs were monitored during her hospital stay and remained stable. She did not require any blood transfusions. There were no complications. By postoperative day 2 she was tolerating a regular diet, pain was controlled with oral pain medicine. She was participating in physical therapy. On postop day 2 she was discharged home, set up with home health services. She was given printed discharge instructions as well as new prescriptions for Dilaudid. Continue her home medications, continue physical therapy, weightbearing as tolerated, GABBIE stockings. Follow up approximately 2 weeks postop or sooner if there are any problems or concerns.
== END 2019-08-08 12:06 | disposition home health service (06) ==
LOC: ASU 08:22 → 3E 08:22

== ENCOUNTER 2020-02-09 08:41 | Observation (INO) ==
--- NOTE | 2020-01-02 10:49 | PAT Medication Instructions ---
Medication Instructions Date of Service January 02, 2020 Home Medications Medication Instructions Recorded apixaban 5 mg tablet 5 mg PO BID #180 tab 09/02/19 atorvastatin 40 mg tablet 40 mg PO HS #90 tab 09/02/19 lisinopril 40 mg tablet 40 mg PO QAM #90 tab 09/02/19 metoprolol succinate 25 mg 25 mg PO QAM #90 tab 09/02/19 tablet,extended release 24 hr cyclobenzaprine 10 mg tablet 10 mg PO TID PRN #90 tab 11/12/19 diclofenac sodium 1 % topical gel 4 gm TOP QID PRN #300 gm 12/30/19 epinephrine 0.3 mg IM UD PRN biotin 10,000 mcg PO QAM apixaban 5 mg tablet 5 mg PO BID atorvastatin 40 mg tablet 40 mg PO HS lisinopril 40 mg tablet 40 mg PO QAM metoprolol succinate 25 mg tablet,extended release 24 hr 25 mg PO QAM cyclobenzaprine 10 mg tablet 10 mg PO TID PRN multivitamin 1 tab PO QAM acetaminophen [Tylenol Arthritis Pain] 650 mg PO Q12H PRN lorazepam 1 mg PO HS PRN diclofenac sodium 1 % topical gel 4 gm TOP QID PRN Continue as directed epinephrine 0.3 mg IM UD PRN (if needed) ASK your prescriber and surgeon apixaban 5 mg tablet 5 mg PO BID (in order for spinal anesthesia, Apixaban/Eliquis needs to be stopped 72 hours/3 days before surgery. Please check if okay with doctor that prescribes this to you) STOP taking 24 hours before surgery diclofenac sodium 1 % topical gel 4 gm TOP QID PRN DO NOT take the morning of surgery biotin 10,000 mcg PO QAM lisinopril 40 mg tablet 40 mg PO QAM cyclobenzaprine 10 mg tablet 10 mg PO TID PRN multivitamin 1 tab PO QAM Take morning of surgery With a small sip of water, OTHERWISE NOTHING TO EAT OR DRINK AFTER MIDNIGHT: metoprolol succinate 25 mg tablet,extended release 24 hr 25 mg PO QAM acetaminophen [Tylenol Arthritis Pain] 650 mg PO Q12H PRN (okay to take up to 4 hours prior to surgery if needed) Take evening before surgery atorvastatin 40 mg tablet 40 mg PO HS cyclobenzaprine 10 mg tablet 10 mg PO TID PRN (if needed) acetaminophen [Tylenol Arthritis Pain] 650 mg PO Q12H PRN (if needed) lorazepam 1 mg PO HS PRN (if needed) Other Notes If you have any questions please call us at [phone] or [phone] or [phone] or [phone]
--- NOTE | 2020-01-06 09:12 | Anesthesiology Consultation ---
Date of Service January 06, 2020 Assessment & Plan (1) Encounter for pre-operative examination: COVID Status: As of 01/05 assessment, patient denies travel to endemic area, known exposure/sick contacts, or symptoms of COVID19. Patient instructed that they and their household members must follow strict social distancing guidelines, wear a mask in public and avoid travel for 14 days prior to surgery. Preoperative COVID19 testing to be completed prior to surgery per surgeon's arrangements. Patient made aware to self-isolate as much as possible between COVID testing and surgery. Chart Review Chart Review: Acceptable Risk for Surgery and Patient seen in Pre Admission Testing Teaching & Discussion Instructed NPO after midnight before surgery, except medications with 15 cc of water. Medication instructions provided according to the PAT guidelines. History Surgery Operation Date: 02/09/20 07:30 Proposed Procedures p Right Total Knee Arthroplasty - Sammy Bhatt MD Height/Weight Height: 5 ft 6.5 in Weight: 131 kg Allergies Allergy/AdvReac Type Severity Reaction Status Date / Time bee venom protein (honey bee) Allergy Unknown ANAPHYLAXIS Verified 12/30/19 11:03 Influenza Virus Vaccines Allergy Unknown RED/HARD Verified 12/30/19 11:03 AT SITE, SOB AND DIFF. SWALLOWING oxycodone Allergy Unknown NAUSEA Verified 12/30/19 11:03 propoxyphene Allergy Unknown SHORTNESS Verified 12/30/19 11:03 OF BREATH escitalopram [From Lexapro] Allergy Difficulty Verified 12/30/19 11:03 Breathing codeine AdvReac Intermediate Nausea Verified 12/30/19 11:03 aspirin AdvReac Unknown ON ELIQUIS Verified 12/30/19 11:03 meloxicam [From Mobic] AdvReac Unknown ON ELIQUIS Verified 12/30/19 11:03 Medications Home Medications Medication Instructions Recorded Confirmed Last Taken epinephrine 0.3 mg IM UD PRN 11/18/18 12/30/19 Unknown biotin 10,000 mcg PO QAM 07/21/19 12/30/19 2 Weeks Ago ~07/23/19 apixaban 5 mg tablet 5 mg PO BID #180 tab 09/02/19 12/30/19 Unknown atorvastatin 40 mg tablet 40 mg PO HS #90 tab 09/02/19 12/30/19 Unknown lisinopril 40 mg tablet 40 mg PO QAM #90 tab 09/02/19 12/30/19 Unknown metoprolol succinate 25 mg 25 mg PO QAM #90 tab 09/02/19 12/30/19 Unknown tablet,extended release 24 hr cyclobenzaprine 10 mg tablet 10 mg PO TID PRN #90 tab 11/12/19 12/30/19 Unknown multivitamin 1 tab PO QAM 12/22/19 12/30/19 Unknown acetaminophen [Tylenol Arthritis 650 mg PO Q12H PRN 12/29/19 12/30/19 Unknown Pain] lorazepam 1 mg PO HS PRN 12/29/19 12/30/19 Unknown diclofenac sodium 1 % topical gel 4 gm TOP QID PRN #300 gm 12/30/19 Unknown Past Medical History Medical History Anxiety History of melanoma right eye Hyperlipidemia Hypertension Internal hemorrhoids Morbid obesity Muscle spasm LEFT CALF -- resolved with TKA Osteoarthritis Paroxysmal atrial fibrillation metoprolol/eliquis Sciatica TIA on medication (09/2017) Possible- occurred two years ago- having tingling in fingers bilaterally- was admitted- no issues since Venom-induced anaphylaxis 2/2 bee sting several years ago. Exercise / Class Metabolic Activity III < 4 Walking/Shop/Light housework (Denies CP or SOB with ambulation, using cane, limited by SI joint and knee pain.) Past Family History Family History Grandmother (Maternal) FHx: diabetes mellitus Past Surgical History Surgical History History of appendectomy History of cholecystectomy History of endometrial ablation History of left knee replacement Hx of arthroscopy of left knee Hx of cataract extraction bilat Hx of colonoscopy several Hx of melanoma excision surgery to right eye and gets injection approx every 6 weeks Past Anesthesia History No Hx of Anesthesia Complications and No Family Hx of Anesthesia Complications History of PONV No Hx of PONV and No Hx of Motion Sickness Social History Smoking Status: Never smoker Do You Dip or Chew Tobacco: No Hx Alcohol Use: No Alcohol type: wine alcohol intake frequency: holidays/special occasions only Hx Substance Use: No substance use type: does not use Review of Systems Pt denies any recent chest pain, shortness of breath, palpitations, cough, fever, URI, or uncontrolled acid reflux. Physical Exam Vital Signs BP: 122/85 P: 73bpm SPO2: 96% RA T: 98.3 F R: 16 Constitutional + morbidly obese ENMT Mouth: + dentures (upper full, lower partial); no chipped teeth and no loose t eeth Thyromental Distance: > or= 3.5 Finger Breadths (3.5) Mallampati Class: II Neck normal visual inspection; neck extension not limited Respiratory normal respiratory effort Auscultation: lungs clear to auscultation bilaterally Cardiovascular Rate/Rhythm: regular rate and regular rhythm Heart Sounds: no murmur Extremities: no edema Testing Laboratory Results PT 11.0 Seconds (9.0-12.0) 01/06/20 09:20 INR 1.0 (0.9-1.1) 01/06/20 09:20 APTT 32.6 Seconds (21.0-31.0) H 01/06/20 09:20 Blood Type A Positive 01/06/20 09:20 Antibody Screen NEGATIVE 01/06/20 09:20 12/23/19 WBC: 6.14 H/H: 14.3/44 PLATELETS: 264 SODIUM: 140 POTASSIUM: 4.3 CHLORIDE: 109 CO2: 27 BUN: 18 CREATININE: 0.86 GLUCOSE: 95 Electrocardiogram Date: 11/21/19 Sinus rhythm at 83bpm, marked left axis deviation. Pattern c/w pulmonary disease. Chest X-Ray Date: 01/06/20 Findings: + NAD Echocardiogram Date: 10/03/17 EF: 60-65% LV Function: normal RWMA: + none Other Findings: + LVH (mild concentric) and + diastolic dysfunction (Grade I) Interatrial septum is intact with no evidence for an ASD. RV systolic pressure is normal.
--- NOTE | 2020-01-06 10:03 | XRay Report ---
XR chest Pre-admission PA/Lat CLINICAL HISTORY: pat preoperative COMPARISON STUDY: 11/17/2017 FINDINGS: The bones soft tissues and hemidiaphragms are normal. The cardiomediastinal silhouette is n ormal. The lungs are clear. The pulmonary vasculature is normal. IMPRESSION: Negative chest. ACT 112: Negative or not required by law. The above report was generated using voice recognition software. It may contain grammatical, syntax or spelling errors. Electronically signed by: Alfred Latham M.D. 01/06/2020 10:01 AM
[2020-01-06 12:37] LABS: Partial Thromboplastin Ratio 1.2; Partial Thromboplastin Time 32.6 Seconds (21.0-31.0)
--- NOTE | 2020-02-06 19:32 | History and Physical Report ---
DATE OF ADMISSION: 02/09/2020 CHIEF COMPLAINT: Right knee pain and discomfort. HISTORY OF PRESENT ILLNESS: The patient is a 74-year-old female who is now about 6 months out from a left knee replacement, presents for surgical treatment of her right knee. She has a long history of bilateral knee pain and discomfort. We have been treating her over the years with injections. This has become less successful over time. She underwent a left knee replacement 6 months ago and has done well from this. She continues to be limited by right knee pain and discomfort. Fairly diffuse global pain and a little bit more worse on the lateral side. The more she is up and on it, the more it hurts. The more she walks, more she limps. She has nighttime pain. She would like to have her right knee fixed. PAST MEDICAL HISTORY: Significant for, 1. Hypertension. 2. Elevated cholesterol. 3. Atrial fibrillation, on Eliquis, followed by Dr. Abreu. 4. Obesity, BMI of 46. 5. History of melanoma. PAST SURGICAL HISTORY: Includes, 1. Eye surgery. 2. Left knee replacement done on 08/06/2019. 3. Cholecystectomy. ALLERGIES: None. CURRENT MEDICATIONS: Include, 1. Metoprolol. 2. Eliquis. 3. Lisinopril. SOCIAL HISTORY: A 74-year-old female. She is . Does not smoke. FAMILY HISTORY: Noncontributory. REVIEW OF HISTORY: Negative for diabetes, neurologic problem, vascular problems or bleeding disorders. No chest pain or shortness of breath. No history of DVT or PE. She is on Eliquis for AFib. PHYSICAL EXAMINATION: GENERAL: Shows a pleasant, middle-aged female who looks to be in pretty good health. HEENT: Benign. NECK: Supple, no lymphadenopathy. LUNGS: Clear to auscultation. HEART: Regular rate and rhythm. ABDOMEN: Soft, nontender, nondistended. EXTREMITIES: Grossly neurovascularly intact except as follows: Examination of both knees reveals the patient walks with the use of a cane. Examination of her left knee reveals a well-healed incision. Neutral knee alignment. Range of motion 0-125. No instability. Examination of the right knee reveals a valgus alignment to her knee. It is increased with weightbearing. Small knee effusion. Range of motion is 0-125. No instability. X-RAYS: X-rays of right knee revealed advanced right knee lateral compartment DJD. She has complete loss of her lateral joint space. She has diffuse osteopenia. ASSESSMENT: A 74-year-old white female now about 6 months out from left knee replacement with advanced right knee degenerative joint disease. She has failed conservative treatment. She does have some other musculoskeletal aches and pains consistent with some chronic lumbar spondylosis. She has done well from her left knee standpoint. PLAN: We talked about treatment. We are going to proceed with a right total knee replacement. The risks and benefits of this procedure were explained to the patient including but not limited to DVT, PE, , infection, neurological injury, vascular injury, bleeding problem, pain, limited range of motion, stiffness, failure to relieve her symptoms, incomplete relief of symptoms, need for further surgery in the future, fracture, leg length inequality, nerve palsy, etc. The patient understands and desires to proceed. Informed consent was obtained. She knows to hold her Eliquis 3 days preoperatively and hold the lisinopril on the morning of surgery. She is planning to be discharged to home using [facility] home health program. She will take her metoprolol on the morning of surgery.
[~2020-02-09 08:41] MED LIST changes: -BUPIVACAINE/EPINEPHRINE 0.25% 1:200,000 30 ML VIAL ONE; -DEXAMETHASONE SOD INJ 4 MG/ML VIAL ONE; +EPINEPHrine INJ 1 MG/ML AMP ONE; +ROPIVACAINE 0.5% 5 MG/ML 30 ML VIAL ONE; +TRANEXAMIC ACID 1,000 MG **IV Intra-op IV SCH
--- NOTE | 2020-02-09 09:16 | History & Physical Bridge Note ---
Date of Service February 09, 2020 History & Physical Bridge Note I have examined the patient, reviewed the History & Physical and in the interval since the performance of the History & Physical I have noted the following changes of clinical significance: no changes noted
[2020-02-09] MEDS ORDERED: PROPOFOL IV EMULSION 10 MG/ML 20 ML VIAL IV ONE (10:33)
[2020-02-09] MEDS ORDERED: LIDOCAINE HCL 2% 2 ML VIAL/AMP(20MG/ML) INFIL ONE (10:33)
[2020-02-09] MEDS ORDERED: fentaNYL citrate 100 MCG/2 ML VIAL ONE (10:33)
[2020-02-09] MEDS ORDERED: MIDAZOLAM HCL 1 MG/ML 2ML VIAL ONE (10:33)
[2020-02-09] MEDS ORDERED: ePHEDrine sulfate 50 MG/ML AMP IV PRN (10:40)
[2020-02-09] MEDS ORDERED: MEPERIDINE HCL 25 MG/ML CARP/VIAL IV PRN (10:40)
[2020-02-09] MEDS ORDERED: fentaNYL citrate 100 MCG/2 ML VIAL IV PRN (10:40)
[2020-02-09] MEDS ORDERED: PHENYLEPHRINE 100MCG/ML 5ML SYR IV PRN (10:40)
[2020-02-09] MEDS ORDERED: ONDANSETRON INJ 2 MG/ML 2 ML VIAL IV PRN ×2 (10:40→14:39)
[2020-02-09] MEDS ORDERED: ATROPINE SULFATE 0.1 MG/ML 10ML SYR IV PRN (10:40)
[2020-02-09] MEDS ORDERED: LABETALOL HCL IV 5 MG/ML 20ML IV PRN (10:40)
[2020-02-09] MEDS ORDERED: BACITRACIN INJ 50,000 UNIT VIAL ONE (11:20)
[2020-02-09] MEDS ORDERED: BUPIVACAINE LIPOSOME 1.3% 266 MG/20 ML VIAL ONE (11:20)
[2020-02-09] MEDS ORDERED: BUPIVACAINE/EPINEPHRINE 0.25% 1:200,000 30 ML VIAL ONE (11:20)
[2020-02-09] MEDS ORDERED: SODIUM CHLORIDE 0.9% PF 50 ML VIAL ONE (11:20)
[2020-02-09] MEDS ORDERED: ePHEDrine sulfate 50 MG/ML SYR ONE (12:29)
--- NOTE | 2020-02-09 13:30 | Post Operative Brief Note ---
PG Immediate Post Op with CF Date of Surgery February 09, 2020 Pre & Post Diagnosis Operation Date: 02/09/20 10:55 Pre-Op Diagnosis: Right Knee Degenerative Joint Disease Post-Op Diagnosis: Right Knee Degenerative Joint Disease I identified the patient and participated in the time-out.: Yes Procedure Operation Date: 02/09/20 10:55 Actual Procedures p Right Total Knee Arthroplasty(Right) - Sammy Bhatt MD Surgeon Sammy Bhatt MD Engineering Specialist Ashley, PAC Estimated Blood Loss 50 Findings Consistent with Post-Op Diagnosis Fluids 800 cc Specimens Specimen Description: Permanent A. Right knee bone and tissue Drains Riley Catheter Anesthesia Type Spinal MAC Complications none Disposition Accompanied Patient To Recovery: No Disposition: Recovery Room
--- NOTE | 2020-02-09 13:55 | Operative Report ---
Post Operative Report Pre & Post Diagnosis Operation Date: 02/09/20 10:55 Pre-Op Diagnosis: Right Knee Degenerative Joint Disease Post-Op Diagnosis: Right Knee Degenerative Joint Disease I identified the patient and participated in the time-out.: Yes Procedure Operation Date: 02/09/20 10:55 Actual Procedures p Right Total Knee Arthroplasty(Right) - Sammy Bhatt MD Surgeon Sammy Bhatt MD Assurance Auditor Ashley, PAC Estimated Blood Loss 50 Findings Consistent with Post-Op Diagnosis Operative findings revealed advanced right knee tricompartment DJD with grade 4 [id number] disease in all 3 compartments most severe in the lateral side. She had a marketed valgus deformity to her knee which is increasing with stress testing. She had eburnation of the lateral femoral condyle lateral tilt lisbeth teau. She had a mild hyperextension deformity. Fluids 800 cc. Specimens Right knee sent for pathology. Drains None. Anesthesia Type Spinal MAC Complications none Disposition Accompanied Patient To Recovery: No Disposition: Recovery Room Indications Patient is a 74-year-old female with a long history of bilateral knee pain discomfort and instability. She has been through extensive conservative treatment the past but became less successful over time. She underwent a left knee replacement about 6 months ago was done quite well this. She continued to be limited by right knee pain discomfort instability and elected proceed with surgical treatment. Description of Procedure Operative implants consist of: 1. Biomet Vanguard size 62.5 right posterior stabilized femoral component. 2. Biomet size 71 tibial tray. 3. 12 mm posterior box polyethylene insert. 4. 31 x 8 all poly-patella. Patient was taken to the operating room identified and placed on the operating table supine position but all contractors were properly padded. IV antibiotics were out by anesthesia team. A spinal anesthetic and abductor canal block had been provided in the holding area. Riley catheter was placed in sterile fashion. A right thigh turn was then placed in the right lower extremity was then prepped and draped in usual sterile fashion. The right leg was elevated and exsanguinated with use of an Esmarch returns placed at 300 mmHg. An anterior approach to the right knee was then performed to a longitudinal incision centered over the patella. Sharp dissection Through subcutaneous tissue down to the extensor mechanism. A medial parapatellar arthrotomy incision was made. Subperiosteal dissection was carried out medially for the fat pad was dissected from any of the patella tendon. Lateral patellofemoral ligament was released. Patella subluxate laterally and the knee was flexed. The osteophytes were taken of distal femur. The ACL and PCL were then released from distal femur the tibia subluxated anteriorly. The external tibial alignment jig was then placed in the interspace the tibia and adjusted 12 mm medially. Proximal tibial cut was made to remove about 3 to 4 mm of bone from the medial side. The tibia was then sized to a size 71. I did try to maximize my coverage of the tibia as she was fairly osteoporotic. 10 tender on the femur. The distal femur was then with a sharp drill. The intramedullary canal was suction. A right 5 degrees valgus cutting guide was placed. This from cutting block was pinned in place and the distal femoral cut was made to take an additional 3 mm of bone off the distal femur. The femur was then sized to a size 62.5. The AP cutting block was pinned parallel to the epicondylar axis which was 5 degrees of external rotation. The anterior cut, anterior chamfer, posterior, posterior chamfer cuts were made. The box cutting guide was placed and just slightly lower in the box cut was made. I did bring the knee down to extension and release him the IT band in order to equalize the extension gap and then also fully release the popliteus to equalize the flexion gap. The knee was then flexed. The remnants of the medial lateral menisci were excised. The osteophytes were taken off the posterior aspect of femur. A trial from point was placed. The tibial tray was pinned in maximum ex rotation and the drill and stem punch used to create defect in the proximal tibia for the tibial tray. The knee was then trialed and the 12 mm insert fit most appropriately. Tension drawn the patella. Patella was cleaned of all soft tissues. Patella thickness measured 19 mm in thickness was cut down to 12. Was sized to a size 31 patella. Levels were drilled for 31 patella. Lateral osteophytes removed. Patella button was placed. New strictly range of motion patella tracked nicely with no thumbs test. Attention drawn to place the permanent components. All trial components were removed. Bone plug was placed at the distal femur to limit blood loss. A double batch of Palacos G bone cement was then mixed. A [employer] Vanguard size 62.5 right posterior by femoral component, size 71 tibial tray, a 12 mm posterior box polyethylene insert, and a 31 x 8 all poly-patella were then cemented in place. Knee was brought out into full extension until cement hardened. Final cement check was then performed. The pericapsular tissues were injected with total of 100 cc of combination of 20 cc of Exparel, 30 cc of normal saline, 50 cc of quarter percent Marcaine with epinephrine. Patient did receive 1 g of tranexamic acid. The tourniquet was then let down for final treatment time 55 minutes. Hemostasis was assured with use electrocautery. The extensor mechanism then closed with combination 1 PDS suture #1 Vicryl suture in a [id number] fashion. The extensor mechanism checked found to be intact with subcutaneous tissues then closed with 2-0 Dexon suture in a buried interrupted fashion. Skin was closed skin allen. Legs then cleaned dried and a sterile dressing composed of Xeroform, 4 fourths, sterile cast padding, Pérez bandage were applied. Patient then transferred to the recovery room in stable condition. Patient tolerated the procedure well and there were no complications. Germain Ramirez, my physician housekeeping assistant, was present for the entire procedure. His assistance was required and essential for proper patient positioning, prepping and draping, surgical exposure, performed the technical details of the operation, placement of the implants, closure of the wound, and placement of the sterile bandage. I attest to the content of the Intraoperative Record and any orders documented therein. Any exceptions are noted below.
--- NOTE | 2020-02-09 14:00 | Anesthesiology Progress Note ---
Date of Service February 09, 2020 Anesthesia Post Procedure Vital Signs Vital Signs: Temp Pulse Pulse Resp BP BP Pulse Ox 02/09/20 13:45 85 21 124/60 96 02/09/20 13:38 37.0 C 80 20 111/59 L 98 02/09/20 10:01 69 20 143/81 H 97 02/09/20 09:15 36.7 C 67 18 146/87 H 98 Transfer of Care Handoff Completed per policy Notes Mental Status: alert / awake / arousable Patient Amnestic to Procedure: Yes Nausea / Vomiting: adequately controlled Pain: adequately controlled Airway Patency, RR, SpO2: stable & adequate BP & HR: stable & adequate Hydration State: stable & adequate Neuraxial Anesthesia: was administered and sensory block is resolving Anesthetic Complications: no major complications apparent and Pt Satisfied with anesthetic care
--- NOTE | 2020-02-09 14:02 | XRay Report ---
XR knee RT 1 or 2V routine HISTORY: 74 years-old Female Surgical Post Op right knee total joint arthroplasty COMPARISON: Bilateral knee radiographs 10/03/2019 TECHNIQUE: 2 views of the right knee FINDINGS: Right knee total joint arthroplasty and patella resurfacing. There is satisfactory alignment without acute fracture. Anterior midline skin allen are noted along with expected postsurgical soft tissue swelling and deep tissue air with surgical drainage catheter. Soft tissue calcifications are again no miguel a projecting over the anteromedial tissues of the knee. IMPRESSION: Right knee total joint arthroplasty and patella resurfacing with expected postoperative c hanges. ACT 112: Negative or not required by law. The above report was generated using voice recognition software. It may contain grammatical, syntax o r spelling errors. Electronically signed by: Mor Clement M.D. 02/09/2020 2:01 PM
[2020-02-09] MEDS ORDERED: ALUMINUM/MAGNESIUM SUSP 30 ML UDC PO PRN (14:39)
[2020-02-09] MEDS ORDERED: METOCLOPRAMIDE HCL INJ 5 MG/ML 2 ML VIAL IV PRN (14:39)
[2020-02-09] MEDS ORDERED: NALOXONE HCL 0.4 MG/1 ML VIAL/CARP IV PRN (14:39)
[2020-02-09] MEDS: SODIUM CHLORIDE 0.9% 1000ML 1,000 ML IV SCH ×2 (14:44→21:25)
[2020-02-09] MEDS ORDERED: EPINEPHrine INJ 1 MG/ML AMP IM PRN (14:52)
[2020-02-09] MEDS ORDERED: LORazepam 1 MG TAB PO PRN (14:54)
[2020-02-09] MEDS ORDERED: MAGNESIUM HYDROXIDE SUSP 30 ML UDC PO PRN (15:00)
[2020-02-09] MEDS ORDERED: bisacodyL 10 MG SUPP PR PRN (15:00)
[2020-02-09] MEDS ORDERED: HYDROmorphone INJ 0.5 MG/0.5 ML SYR IV PRN (15:00)
[2020-02-09] MEDS: ACETAMINOPHEN 500 MG TAB PO SCH ×2 (15:50→21:26)
[2020-02-09] MEDS: FERROUS GLUCONATE 324 MG TAB PO SCH (15:50)
[2020-02-09] MEDS: KETOROLAC TROMETHAMINE 15 MG/ML VIAL IV SCH ×2 (15:50→21:26)
[2020-02-09] MEDS: ASCORBIC ACID 500 MG TAB PO SCH (15:50)
[2020-02-09] MEDS ORDERED: TRANEXAMIC ACID / 0.7% NACL 1,000 MG/100 ML BAG IV SCH (20:00)
[2020-02-09] MEDS: CEFAZOLIN 2000MG 2,000 MG/15 ML SYR IV SCH (20:03)
[2020-02-09] MEDS: ATORVASTATIN 40 MG TAB PO SCH (20:04)
[2020-02-09] MEDS: TAPENTADOL HCL ER 50 MG TABCR PO SCH (20:04)
[2020-02-09] MEDS: SENNA 8.6 MG TAB PO SCH (20:04)
[2020-02-09] MEDS: DOCUSATE SODIUM 100 MG CAP PO SCH (20:04)
[2020-02-09] MEDS: HYDROmorphone HCL 2 MG TAB PO PRN (20:05)
[2020-02-10] MEDS: CEFAZOLIN 2000MG 2,000 MG/15 ML SYR IV SCH (03:05)
[2020-02-10] MEDS: KETOROLAC TROMETHAMINE 15 MG/ML VIAL IV SCH ×2 (03:05→10:15)
[2020-02-10] MEDS: SODIUM CHLORIDE 0.9% 1000ML 1,000 ML IV SCH (04:30)
[2020-02-10] MEDS: ACETAMINOPHEN 500 MG TAB PO SCH ×3 (05:53→20:39)
[2020-02-10 06:14] LABS: Hematocrit (blood only) 36.2 % (37-47); Hemoglobin 11.9 g/dL (12.0-16.0); Mean Corpuscular Hemoglobin 30.4 pg (25-34); Mean Corpuscular Hgb Conc 32.9 g/dL (32-36); Mean Corpuscular Volume 92.3 fL (80-100); Platelet Count 191 K/uL (130-400); RDW Coefficient of Variation 15.4 % (11.5-14.5); RDW Standard Deviation 52.2 fL (36.4-46.3); Red Blood Count 3.92 M/uL (4.2-5.4); White Blood Count 8.34 K/uL (4.8-10.8)
[2020-02-10 06:42] LABS: BUN Creatinine Ratio 24.9 (10-20); Calcium 8.1 mg/dl (8.5-10.1); Creatinine Clr Calc Pharmacy 80.4 ml/min; Est GFR (African American) 75.5; Est GFR (Non-African American) 65.2; Potassium 4.5 mmol/L (3.5-5.1)
[2020-02-10] MEDS: ASCORBIC ACID 500 MG TAB PO SCH ×2 (08:34→16:03)
[2020-02-10] MEDS: lisinopriL 40 MG TAB PO SCH (08:34)
[2020-02-10] MEDS: FERROUS GLUCONATE 324 MG TAB PO SCH ×2 (08:34→16:02)
[2020-02-10] MEDS: TAPENTADOL HCL ER 50 MG TABCR PO SCH ×2 (08:34→20:42)
[2020-02-10] MEDS: HYDROmorphone HCL 2 MG TAB PO PRN ×3 (08:34→21:41)
[2020-02-10] MEDS: MULTIVITAMIN TAB PO SCH (08:35)
[2020-02-10] MEDS: METOPROLOL SUCC 25MG EXT REL TAB PO SCH (08:35)
[2020-02-10] MEDS: DOCUSATE SODIUM 100 MG CAP PO SCH ×2 (08:35→20:38)
[2020-02-10] MEDS ORDERED: NON-FORMULARY MEDICATION (Biotin 10,000 MCG) PO SCH (09:00)
[2020-02-10] MEDS ORDERED: MULTIVITAMIN TAB PO SCH (09:00)
--- NOTE | 2020-02-10 09:56 | Progress Notes ---
DATE: 02/10/2020 SUBJECTIVE: A 74-year-old female postop day 1 from right knee replacement. She is doing pretty well. Had a pretty good night. Pain has been reasonably well controlled. No chest pain or shortness of breath. Not feeling dizzy or lightheaded. OBJECTIVE: VITAL SIGNS: Temperature is 36.9. Vital signs stable. GENERAL: Shows a pleasant, middle-aged female. She is sitting up in her bedside with her legs dangling over the bed, looks pretty comfortable. LUNGS: Clear to auscultation. HEART: Has a regular rate and rhythm. ABDOMEN: Soft, nontender, nondistended. EXTREMITIES: Grossly neurovascularly intact except as follows. Examination of the right leg reveals the leg to be well aligned. Dressing is clean, dry and intact. She can do a straight leg raise with some effort. She can dorsiflex and plantarflex her foot appropriately. She is neurologically intact. LABORATORY DATA: Hemoglobin is 11.9. Hematocrit 36.2. Electrolytes are stable. ASSESSMENT: A 74-year-old female postop day 1 from right knee replacement, doing reasonably well. Pain is controlled. She is neurologically intact. PLAN: 1. DVT prophylaxis including thigh-high TEDs, SCDs, and back on her Eliquis. We will put her on prophylactic dose until discharge and then discharge on a therapeutic dose. 2. PT/OT. Weightbear as tolerated. Right total knee protocol. 3. Pain control, doing okay with current pain regimen. 4. Disposition: She is planning to be discharged home with some home health. She has a lot of family they are willing to assist and can assist in her care.
[2020-02-10] MEDS: APIXABAN 2.5 MG TAB PO SCH (16:04)
[2020-02-10] MEDS: SENNA 8.6 MG TAB PO SCH (20:37)
[2020-02-10] MEDS: ATORVASTATIN 40 MG TAB PO SCH (20:37)
[2020-02-11] MEDS: HYDROmorphone HCL 2 MG TAB PO PRN ×2 (03:10→09:44)
[2020-02-11] MEDS: ACETAMINOPHEN 500 MG TAB PO SCH ×2 (05:04→13:20)
[2020-02-11] MEDS: APIXABAN 2.5 MG TAB PO SCH (05:04)
[2020-02-11] MEDS: TAPENTADOL HCL ER 50 MG TABCR PO SCH (08:10)
[2020-02-11] MEDS: METOPROLOL SUCC 25MG EXT REL TAB PO SCH ×2 (08:11→09:18)
[2020-02-11] MEDS: ASCORBIC ACID 500 MG TAB PO SCH (08:11)
[2020-02-11] MEDS: lisinopriL 40 MG TAB PO SCH ×2 (08:11→09:18)
[2020-02-11] MEDS: FERROUS GLUCONATE 324 MG TAB PO SCH (08:11)
[2020-02-11] MEDS: MULTIVITAMIN TAB PO SCH (08:12)
[2020-02-11] MEDS: DOCUSATE SODIUM 100 MG CAP PO SCH (08:12)
--- NOTE | 2020-02-11 14:47 | Progress Notes ---
DATE: 02/11/2020 SUBJECTIVE: A 74-year-old white female postop day 2 from right knee replacement. She is doing pretty well. Knee is pretty painful with therapy but manageable. No chest pain or shortness of breath. Not feeling dizzy or lightheaded. Feels anxious and ready to go home. OBJECTIVE: VITAL SIGNS: Temperature 36.4. Vital signs stable. GENERAL: Shows a pleasant elderly female. Lying in bed, looks pretty comfortable. EXTREMITIES: Examination of the right leg reveals a large soft tissue envelope. No significant drainage. Leg is well aligned. She can dorsiflex and plantarflex her foot appropriately. She is neurologically intact. ASSESSMENT: A 74-year-old white female postoperative day 2 from right knee replacement, doing reasonably well. Pain is controlled. Therapy went reasonably well. PLAN: 1. DVT prophylaxis including thigh-high TEDs, SCDs, and back on her Eliquis. We will discharge her on a therapeutic dose. 2. PT/OT. Weight bear as tolerated. Right total knee protocol. 3. Pain control, doing okay with current pain regimen. 4. Disposition: Plan to discharge to home with some home health and her family's assistance later today.
--- NOTE | 2020-02-15 07:05 | Discharge Summary ---
Date of Service February 15, 2020 Admission HPI Per Admitting Provider Documented in the H & P Admission Exam (Per Admitting) Constitutional Documented in the H & P Discharge Data Consultations 02/09/20 14:39 Consult Case Management - Discharge Planning Routine Procedures Performed Operation Date: 02/09/20 10:55 Actual Procedures p Right Total Knee Arthroplasty(Right) - Sammy Bhatt MD Hospital Course (1) Status post total right knee replacement: This patient is a 74 year old female admitted on 02/09/20 and underwent total knee replacement. She tolerated the procedure well and there were no complications. Transferred to the PACU post op and later to the orthopedic floor for further care. She was given ancef for antibiotic prophylaxis. She was also given GABBIE stockings, SCDs, and eliquis for DVT prophylaxis. Hemoglobin, hematocrit, and vital signs were monitored during her hospital stay and remained stable. Did not require any blood transfusions. There were no complications during her hospital stay. By post op day #2 the patient was tolerating a regular diet, pain was reasonably controlled with oral pain medicine, and she was participating in physical therapy. On post op day #2 the patient was discharged home and set up with home health care. She was given printed discharge instructions including prescriptions for extra strength tylenol and hydromorphone. Continue physical therapy, weight bearing as tolerated. Continue GABBIE stockings. Follow up approximately 2 weeks post op or sooner if there are problems or concerns. Coding Level of Care Code None Diagnoses Status post total right knee replacement Z96.651
== END 2020-02-11 14:31 | disposition home health service (06) ==
LOC: 3E 08:41 → ASU 08:41

== ENCOUNTER 2022-04-25 04:58 | Observation (INO) ==
--- NOTE | 2022-04-03 16:08 | PAT Medication Instructions ---
Medication Instructions Date of Service April 03, 2022 Home Medications Medication Instructions Recorded epinephrine 0.3 mg/0.3 mL 0.3 mg (0.3 mL) IM UD PRN Allergic 12/02/20 injection, auto-injector Reaction #2 SYRINGES apixaban 5 mg tablet (Eliquis) 5 mg PO BID #180 tabs 07/19/21 atorvastatin 40 mg tablet 40 mg PO HS #90 tabs 07/19/21 lorazepam 1 mg tablet 1 mg PO HS PRN anxiety #90 tabs 09/09/21 benzonatate 200 mg capsule 200 mg PO TID PRN cough #30 caps 10/06/21 lisinopril 40 mg tablet 40 mg PO QAM #90 tabs 02/21/22 duloxetine 30 mg capsule,delayed 30 mg PO .COMPLEX #60 caps 02/22/22 release metoprolol succinate 25 mg 25 mg PO QAM #90 tabs 02/28/22 tablet,extended release 24 hr diclofenac sodium 1 % topical gel 4 g topical QID PRN joint pain 03/29/22 #300 grams biotin 10,000 mcg capsule 10,000 mcg PO QAM multivitamin 1 tab PO QAM epinephrine 0.3 mg/0.3 mL injection, auto-injector 0.3 mg (0.3 mL) IM UD PRN Allergic Reaction apixaban 5 mg tablet (Eliquis) 5 mg PO BID atorvastatin 40 mg tablet 40 mg PO HS lorazepam 1 mg tablet 1 mg PO HS PRN anxiety benzonatate 200 mg capsule 200 mg PO TID PRN cough lisinopril 40 mg tablet 40 mg PO QAM duloxetine 30 mg capsule,delayed release 30 mg PO .COMPLEX metoprolol succinate 25 mg tablet,extended release 24 hr 25 mg PO QAM diclofenac sodium 1 % topical gel 4 g topical QID PRN joint pain Continue as directed epinephrine 0.3 mg/0.3 mL injection, auto-injector 0.3 mg (0.3 mL) IM UD PRN Allergic Reaction (if needed) ASK your surgeon for instructions diclofenac sodium 1 % topical gel 4 g topical QID PRN joint pain ASK your prescriber and surgeon apixaban 5 mg tablet (Eliquis) 5 mg PO BID (in order for spinal anesthesia, Apixaban/Eliquis needs to be stopped 72 hours/3 days before surgery. Please check if okay with doctor that prescribes this to you) DO NOT take the morning of surgery biotin 10,000 mcg capsule 10,000 mcg PO QAM multivitamin 1 tab PO QAM benzonatate 200 mg capsule 200 mg PO TID PRN cough lisinopril 40 mg tablet 40 mg PO QAM Take morning of surgery With a small sip of water, OTHERWISE NOTHING TO EAT OR DRINK AFTER MIDNIGHT: duloxetine 30 mg capsule,delayed release 30 mg PO .COMPLEX metoprolol succinate 25 mg tablet,extended release 24 hr 25 mg PO QAM Take evening before surgery atorvastatin 40 mg tablet 40 mg PO HS lorazepam 1 mg tablet 1 mg PO HS PRN anxiety (if needed) benzonatate 200 mg capsule 200 mg PO TID PRN cough (if needed) duloxetine 30 mg capsule,delayed release 30 mg PO .COMPLEX Other Notes If you have any questions please call us at [phone] or [phone] or [phone] or [phone]
--- NOTE | 2022-04-04 08:45 | Anesthesiology Consultation ---
Date of Service April 04, 2022 Assessment & Plan (1) Encounter for pre-operative examination: - will need cardiology pre-op evaluation, previously saw [place] [facility] and pt is agreeable to return to that practice. - Pt requesting early start time due to anxiety, she was advised of need for her to further discuss this with surgeon's office for their coordination with OR. She verbalized understanding and denied additional questions or concerns. Outpatient joint assessment: Patient is currently scheduled for inpatient pathway. If re-evaluated pending system levels during current pandemic/surgeon requests outpatient pathway, patient is NOT acceptable candidate for outpatient joint program from anesthesia standpoint. Chart Review Chart Review: Pending: Refer to Additional Notes / Consult section and Patient seen in Pre Admission Testing Teaching & Discussion Pre-Anesthesia Teaching/Discussion Notes: Instructed NPO after midnight before surgery, except medications with 15 cc of water. Medication instructions provided according to the PAT guidelines. History Surgery Operation Date: 04/25/22 08:50 Proposed Procedures p Left Total Hip Arthroplasty - Sammy Bhatt MD Height/Weight Height: 5 ft 6 in Weight: 136.078 kg Allergies Allergy/AdvReac Type Severity Reaction Status Date / Time bee venom protein (honey bee) Allergy Unknown ANAPHYLAXIS Verified 03/31/22 08:35 Influenza Virus Vaccines Allergy Unknown RED/HARD Verified 03/31/22 08:35 AT SITE, SOB AND DIFF. SWALLOWING oxycodone Allergy Unknown NAUSEA Verified 03/31/22 08:35 propoxyphene Allergy Unknown SHORTNESS Verified 03/31/22 08:35 OF BREATH escitalopram [From Lexapro] Allergy Difficulty Verified 03/31/22 08:35 Breathing codeine AdvReac Intermediate Nausea Verified 03/31/22 08:35 aspirin AdvReac Unknown ON ELIQUIS Verified 03/31/22 08:35 meloxicam [From Mobic] AdvReac Unknown ON ELIQUIS Verified 03/31/22 08:35 Medications Home Medications Medication Instructions Recorded Confirmed Last Taken biotin 10,000 mcg capsule 10,000 mcg PO QAM 07/21/19 03/31/22 02/07/20 multivitamin 1 tab PO QAM 12/22/19 03/31/22 02/08/20 08:00 epinephrine 0.3 mg/0.3 mL 0.3 mg (0.3 mL) IM UD PRN Allergic 12/02/20 03/31/22 Unknown injection, auto-injector Reaction #2 SYRINGES apixaban 5 mg tablet (Eliquis) 5 mg PO BID #180 tabs 07/19/21 03/31/22 Unknown atorvastatin 40 mg tablet 40 mg PO HS #90 tabs 07/19/21 03/31/22 Unknown lorazepam 1 mg tablet 1 mg PO HS PRN anxiety #90 tabs 09/09/21 03/31/22 Unknown lisinopril 40 mg tablet 40 mg PO QAM #90 tabs 02/21/22 03/31/22 Unknown duloxetine 30 mg capsule,delayed 30 mg PO .COMPLEX #60 caps 02/22/22 03/31/22 Unknown release metoprolol succinate 25 mg 25 mg PO QAM #90 tabs 02/28/22 03/31/22 Unknown tablet,extended release 24 hr diclofenac sodium 1 % topical gel 4 g topical QID PRN joint pain 03/29/22 03/31/22 Unknown #300 grams Past Medical History Medical History (Updated 04/04/22 @ 08:54 by Deandra Ga PA-C) Anxiety Diffuse myofascial pain syndrome Dyslipidemia History of COVID-19 02/2021- sotelo, runny nose, congestion, no hospitalization, no current issues History of melanoma right eye Hypertension controlled, stable per pt Internal hemorrhoids Morbid obesity Osteopenia Paroxysmal atrial fibrillation metoprolol/eliquis Prediabetes TIA on medication (09/2017) Possible- occurred two years ago- was admitted- no issues since Patient denies h/o seizures, heart attack, heart failure, blood clots or blood transfusions. Exercise / Class Metabolic Activity III < 4 Walking/Shop/Light housework (denies CP or SOB with usual activities, reduced physical activity d/t hip dysfunction; ambulates with cane) Past Family History Family History Grandmother (Maternal) FHx: diabetes mellitus Denies family history of Ovarian cancer Prostate cancer Coronary heart disease Breast cancer Colorectal cancer Past Surgical History Surgical History (Updated 04/04/22 @ 08:40 by Deandra Ga PA-C) History of appendectomy History of cholecystectomy History of endometrial ablation History of left knee replacement 08/06/19: L3-L4 1 attempt + PNB. History of total right knee replacement 02/09/20: 1 attempt + PNB. Hx of arthroscopy of left knee Hx of cataract extraction bilat Hx of colonoscopy several Hx of melanoma excision surgery to right eye and gets injection approx every 6 weeks Past Anesthesia History No Hx of Anesthesia Complications and No Family Hx of Anesthesia Complications History of PONV No Hx of PONV and No Hx of Motion Sickness Social History Smoking Status: Never smoker Do You Dip or Chew Tobacco: No Hx Alcohol Use: No Hx Substance Use: No substance use type: does not use Review of Systems Snoring, denies witnessed apneas. Patient denies chest pain, shortness of breath, dyspnea on exertion, fever, chills, cough, wheezing, or palpitations. Physical Exam Vital Signs Vitals BP 134/72 P 69 TEMP 97.5 SP02 97% on RA RESP 18 Physical Full cervical extension range of motion without pain TMD 3.5 finger breadths Mallampati Score 2 Dentition: full upper denture, partial lower denture; denies chipped or loose te eth, implants or bridges Lungs: normal respiratory effort. Clear throughout to auscultation, no adventitious breath sounds Cardiac: regular rate and rhythm, no murmurs noted Carotid arteries: negative bruit bilat Lab Results Anesthesia Preop Results Results Anesthesia Widget: WBC 6.39 K/ul (4.8-10.8) 03/24/22 Hgb 15.0 g/dl (12.0-16.0) 03/24/22 Hct 47.7 % (34.1-44.9) H 03/24/22 Plt 163 K/uL (130-400) 03/24/22 Na 138 mmol/L (136-145) 03/24/22 K 4.3 mmol/L (3.5-5.1) 03/24/22 Cl 105 mmol/L (98-107) 03/24/22 CO2 27 mmol/L (21-32) 03/24/22 BUN 22 mg/dl (6-23) 03/24/22 Creat 0.89 mg/dl (0.6-1.2) 03/24/22 Glucose Level 91 mg/dl (70-99(Fasting)) 03/24/22 PT 11.3 Seconds (9.0-12.0) 04/04/22 PTT 34.4 Seconds (21.0-31.0) H 04/04/22 INR 1.1 (0.9-1.1) 04/04/22 Blood Type A Positive 04/04/22 Antibody Screen NEGATIVE 04/04/22 Testing Electrocardiogram Date: 04/04/22 NSR, rate 68 bpm Left axis deviation Chest X-Ray Date: 04/04/22 Cardiomediastinal and hilar silhouettes are within normal limits. No pneumothorax, pleural effusion, airspace consolidation or overt pulmonary edema. Degenerative changes of the shoulders and spine. IMPRESSION: No acute process. Echocardiogram Date: 12/07/21 EF 60-65% No regional wall motion abnormalities Borderline cLVH No significant valvular pathology Grade I diastolic dysfunction COVID-19 Risk Screen Screening Information COVID-19 Screen Date: 04/04/22 Exposure 21 Days Family/Household +COVID Last 21 Days: No Exposure 10 Days Any COVID Exposure Last 10 Days: No Symptoms Last 10 Days Experienced COVID Sx Last 10 Days: No + COVID 0-90 Days COVID + in Last 0-90 Days: No
[2022-04-25] MEDS ORDERED: METOCLOPRAMIDE HCL 10 MG TABLET PO SCH (06:00)
[2022-04-25] MEDS ORDERED: TRANEXAMIC ACID 1,000 MG **IV Pre-op IV SCH (06:00)
[2022-04-25] MEDS ORDERED: CeleBREX 200 MG CAP PO SCH (06:00)
[2022-04-25] MEDS ORDERED: ACETAMINOPHEN 500 MG TAB PO SCH (06:00)
[2022-04-25] MEDS ORDERED: FAMOTIDINE 20 MG TAB PO SCH (06:00)
[2022-04-25] MEDS ORDERED: LR 500ML BOLUS, THEN 15ML/HR IV SCH (06:00)
[2022-04-25] MEDS ORDERED: LR 60ML/HR IV SCH (06:00)
[2022-04-25] MEDS ORDERED: BUPIVACAINE 0.5 % 5 MG/1 ML PF 10ML VIAL ONE (06:20)
[2022-04-25] MEDS ORDERED: BUPIVACAINE 0.5 % 5 MG/1 ML MPF 30ML VIAL ONE (06:37)
[2022-04-25] MEDS ORDERED: fentaNYL citrate 100 MCG/2 ML VIAL ONE (06:37)
[2022-04-25] MEDS ORDERED: MIDAZOLAM HCL 1 MG/ML 2ML VIAL ONE (06:37)
[2022-04-25] MEDS ORDERED: EPINEPHrine INJ 1 MG/ML AMP ONE (06:37)
[2022-04-25] MEDS ORDERED: PROPOFOL IV EMULSION 10 MG/ML 20 ML VIAL IV ONE ×4 (06:45→08:32)
[2022-04-25] MEDS ORDERED: MoRPHine SULFATE PF 1 MG/ML 10 ML AMP/VIAL ONE (06:47)
[2022-04-25] MEDS ORDERED: ONDANSETRON INJ 2 MG/ML 2 ML VIAL ONE (06:47)
--- NOTE | 2022-04-25 06:59 | History & Physical Bridge Note ---
Date of Service April 25, 2022 History & Physical Bridge Note I have examined the patient, reviewed the History & Physical and in the interval since the performance of the History & Physical I have noted the following changes of clinical significance: no changes noted
[2022-04-25] MEDS ORDERED: PHENYLEPHRINE 100MCG/ML 5ML SYR ONE (07:36)
[2022-04-25] MEDS ORDERED: PHENYLEPHRINE HCL 10 MG/ML VIAL ONE (07:45)
[2022-04-25] MEDS ORDERED: ePHEDrine sulfate 50 MG/ML AMP ONE (07:50)
--- NOTE | 2022-04-25 09:43 | Operative Report ---
PG Post Operative Report Pre & Post Diagnosis Operation Date: 04/25/22 07:00 Pre-Op Diagnosis: Left Hip Advanced Degenerative Joint Disease Post-Op Diagnosis: Left Hip Advanced Degenerative Joint Disease I identified the patient and participated in the time-out.: Yes Procedure Operation Date: 04/25/22 07:00 Actual Procedures p Left Total Hip Arthroplasty--Uncemented(Left) - Sammy Bhatt MD Surgeon Sammy Bhatt MD Overhead Door Technician Germain Ramirez PA-C Estimated Blood Loss 300 Findings Consistent with Post-Op Diagnosis Operative findings were advanced left hip DJD. She had grade 4 [id number] disease of the femoral head and acetabulum. She had large anterior acetabular osteophyte. Small hip joint effusion. Fluids 1200 cc Specimens Left femoral head sent for pathology. Drains None Anesthesia Type Spinal MAC Complications none Disposition Accompanied Patient To Recovery: No Indications Patient is a 76-year-old female who has about a year history of gradual progressive increased left hip pain discomfort scribed gotten worse over time. That she is actually using a cane to get around. The x-ray showed progressive hip arthritis. She failed all conservative measures elected proceed with total hip arthroplasty. Description of Procedure Operative implants consist of: 1. Biomet G7 size 52 mm tablet shell. 2. 6.5 cancellous acetabular screws 135 mm length and 120 mm length. 3. [place] hole director of national sales. 4. Highly cross-linked polyethylene liner with a 50 mm outer diameter 36 mm diameter. 5. DePuy Corail size 14 KLA femoral stem. 6. +5/36 mm ceramic articular ball. The patient was taken the operating, identified, placed on the operating table s upine position protectors were properly padded. IV antibiotics tried by anesthesia team. A spinal anesthetic and been implemented holding area. Riley catheter was placed in sterile fashion. Patient then placed in the right lateral decubitus position. Irby placed. Stulberg hip positioner was used for positioning. All contact areas were meticulously padded and the left hip and leg were then prepped and draped in usual sterile fashion. Posterior lateral to left hip was then performed through a curvilinear incision centered over the greater trochanter. Sharp dissection Through subcutaneous tissue down the IT band gluteal fascia. She did have a very thick Soft tissue envelope. The IT band gluteal fascia then incised longitudinally in line with skin incision. The greater bursa was excised. The piriformis and external rotators along with the posterior hip joint capsule were then released from the proximal aspect of the hip and femoral neck as a single layer. Great care was taken throughout the procedure protect the sciatic nerve at all times. The hip was internally rotated and dislocated. A femoral neck osteotomy cut was made with Final Cut 15 mm above the lesser trochanter. Femoral head was removed and sent for pathology. The femur was retracted anteriorly. Attention drawn the acetabulum. The acetabulum was excised. Pulmonary fat was excised. Sequential reaming the acetabulum performed again with size 43 and progressing up to 51. I then reamed a little bit with a 52 reamer and then placed a 52 mm Biomet G7 acetabular shell in about 40 degrees lateral opening 20 to 25 degrees of anteversion. We worked hard to get this in proper position. Was fixed with two 6.5 cancellous acetabular screws. A large anterior osteophyte was removed. Trial liner was placed. Attention drawn the femur. The proximal femur was entered with a Magikflix cutter followed by canal finder. Then broached beginning size 8 and progressed up to a 14. We got excellent fit of 14. We trialed the hip and the hip was fully stable with a +5 articular ball. Related reoccluded leg lengths are equal. Soft tissue tension seemed appropriate. We elect to place these implants. Nupathe all trial implants were removed. An apex hole director of national sales was placed but highly cross-linked polyethylene liner was placed. A size 14 KLA femoral stem was impacted in position. +5/36 mm ceramic articular ball was placed. Hip was located once again found to be stable. Attention drawn toward closing. The wounds irrigated cosigns pulsatile lavage solution. We did inject locally with 60 cc of half percent Marcaine with epinephrine. Posterior capsule and external rotators were then repaired as a single layer through drill holes in the posterior trochanter with #2 Tycron suture. IT band gluteal fascia then closed in 1 PDS suture in running fashion for subcutaneous tissue then closed with 2 layers of the deep layer #2 Vicryl suture and subcutaneous tissues with 2 Dexon suture in buried interrupted fashion the skin was closed with skin allen. The leg was then cleaned and dried. A Prevena VAC dressing was applied. The patient then transferred to the recovery room in stable condition. Patient tolerated procedure well and there were no complications. Germain Ramirez, my physician personal injury legal assistant, was present for the entire procedure. His assistance was essential and required for appropriate patient positioning, prepping and draping, surgical exposure, performing the technical details of the operation, placement the implants, closure of the wound, and placement of the sterile bandage. I attest to the content of the Intraoperative Record and any orders documented therein. Any exceptions are noted below.
--- NOTE | 2022-04-25 10:12 | XRay Report ---
AP PELVIS, CROSSTABLE LATERAL LEFT HIP History: Left total hip arthroplasty. Degenerative arthritis. Postop. FINDINGS: The patient is status post a left total hip arthroplasty. The hardware is intact. No fractu re or dislocation. Skin allen are in place. IMPRESSION: Left total hip arthroplasty. No evidence for hardware complication. ACT 112: Negative or not required by law. Electronically signed by: Isai Reeder M.D. 04/25/2022 10:09 AM
[2022-04-25] MEDS ORDERED: NALOXONE HCL 0.4 MG/1 ML VIAL/CARP IV PRN (10:48)
[2022-04-25] MEDS ORDERED: bisacodyL 10 MG SUPP PR PRN (10:48)
[2022-04-25] MEDS ORDERED: ALUMINUM/MAGNESIUM SUSP 30 ML UDC PO PRN (10:48)
[2022-04-25] MEDS ORDERED: LORazepam 1 MG TAB PO PRN (10:48)
[2022-04-25] MEDS ORDERED: ONDANSETRON INJ 2 MG/ML 2 ML VIAL IV PRN (10:48)
[2022-04-25] MEDS ORDERED: MAGNESIUM HYDROXIDE SUSP 30 ML UDC PO PRN (10:48)
[2022-04-25] MEDS ORDERED: EPINEPHrine ADULT AUTO-INJECT 0.3 MG SYR IM PRN (10:48)
[2022-04-25] MEDS ORDERED: METOCLOPRAMIDE HCL INJ 5 MG/ML 2 ML VIAL IV PRN (10:48)
[2022-04-25] MEDS: SODIUM CHLORIDE 0.9% 1000ML 1,000 ML IV SCH ×2 (10:52→19:53)
[2022-04-25] MEDS: HYDROmorphone INJ 1 MG/ML SYRINGE IV PRN ×2 (11:22→19:50)
[2022-04-25] MEDS ORDERED: EPINEPHrine INJ 1 MG/ML AMP IM PRN (12:04)
[2022-04-25] MEDS: KETOROLAC TROMETHAMINE 15 MG/ML VIAL IV SCH ×3 (12:14→22:53)
--- NOTE | 2022-04-25 13:09 | Anesthesiology Progress Note ---
Date of Service April 25, 2022 Anesthesia Post Procedure Vital Signs Vital Signs: Temp Pulse Pulse Resp BP Pulse Ox O2 Del Method 04/25/22 12:58 36.3 C L 73 17 104/62 95 Room Air 04/25/22 11:45 36.3 C L 66 17 95/57 L 92 Room Air 04/25/22 11:09 36.4 C L 68 17 137/62 100 Room Air 04/25/22 10:45 36.4 C L 68 18 107/77 94 Room Air 04/25/22 10:20 68 11 L 102/55 L 100 Room Air 04/25/22 10:10 36.6 C 67 13 103/57 L 96 Room Air 04/25/22 10:00 70 13 93/56 L 99 Room Air 04/25/22 09:50 69 18 84/59 L 99 Oxymask 04/25/22 09:40 76 26 H 94/61 L 99 Oxymask 04/25/22 09:33 36.7 C 78 20 95/54 L 98 Oxymask 04/25/22 05:40 36.5 C 74 20 144/103 H 97 Room Air O2 Flow Rate 04/25/22 12:58 04/25/22 11:45 04/25/22 11:09 04/25/22 10:45 04/25/22 10:20 04/25/22 10:10 04/25/22 10:00 04/25/22 09:50 5 04/25/22 09:40 5 04/25/22 09:33 5 04/25/22 05:40 Pain Intensity Left Hip: Pain Intensity: 0 Transfer of Care Handoff Completed per policy Notes Mental Status: alert / awake / arousable and participated in evaluation Patient Amnestic to Procedure: Yes Nausea / Vomiting: adequately controlled Pain: adequately controlled Airway Patency, RR, SpO2: stable & adequate BP & HR: stable & adequate Hydration State: stable & adequate Neuraxial Anesthesia: was administered and sensory block is resolving Anesthetic Complications: no major complications apparent
[2022-04-25] MEDS: ACETAMINOPHEN 500 MG TAB PO SCH ×2 (13:30→22:52)
[2022-04-25] MEDS: ceFAZolin 2000MG 2,000 MG/15 ML SYR IV SCH ×2 (15:14→22:53)
[2022-04-25] MEDS: traMADol HCL 50 MG TABLET PO PRN (15:18)
[2022-04-25] MEDS ORDERED: TRANEXAMIC ACID / 0.7% NACL 1,000 MG/100 ML BAG IV SCH (15:45)
[2022-04-25] MEDS: ASCORBIC ACID 500 MG TAB PO SCH (17:11)
[2022-04-25] MEDS: ATORVASTATIN 40 MG TAB PO SCH (20:36)
[2022-04-25] MEDS: DOCUSATE SODIUM 100 MG CAP PO SCH (20:36)
[2022-04-25] MEDS: SENNA 8.6 MG TAB PO SCH (20:36)
[2022-04-26] MEDS: traMADol HCL 50 MG TABLET PO PRN ×3 (03:47→19:58)
[2022-04-26] MEDS: ACETAMINOPHEN 500 MG TAB PO SCH ×3 (05:44→21:04)
[2022-04-26] MEDS: KETOROLAC TROMETHAMINE 15 MG/ML VIAL IV SCH (05:45)
[2022-04-26 07:36] LABS: Hematocrit (blood only) 34.9 % (34.1-44.9); Hemoglobin 11.3 g/dl (12.0-16.0); Mean Corpuscular Hgb Conc 32.4 g/dL (32.0-36.0); Mean Corpuscular Volume 95.6 fL (80.0-100.0); Mean Platelet Volume 10.4 fL (9.4-12.3); Platelet Count 120 K/uL (130-400); RDW Coefficient of Variation 14.8 % (11.5-14.5); RDW Standard Deviation 52.1 fL (36.4-46.3); Red Blood Count 3.65 M/uL (3.93-5.22); White Blood Count 6.41 K/ul (4.8-10.8)
[2022-04-26 07:42] LABS: Basophils # (auto) 0.04 K/uL (0-0.2); Basophils % (auto) 0.6 %; Echinocytes 2+; Eosinophils # (auto) 0.14 K/uL (0-0.50); Eosinophils % (auto) 2.2 %; Immature Granulocytes # (auto) 0.04 K/uL (0.00-0.02); Immature Granulocytes % (auto) 0.6 %; Lymphocytes # (auto) 1.46 K/uL (1.2-3.4); Lymphocytes % (auto) 22.8 %; Monocytes % (auto) 9.4 %; Neutrophils # (auto) 4.13 K/uL (1.4-6.5); Neutrophils % (auto) 64.4 %
[2022-04-26 07:45] LABS: BUN Creatinine Ratio 20.6 (10-20); Calcium 7.9 mg/dl (8.5-10.1); Creatinine Clr Calc Pharmacy 72.8 ml/min; Est GFR (African American) 66.2 ml/min; Est GFR (Non-African American) 57.1 ml/min; Potassium 4.3 mmol/L (3.5-5.1)
[2022-04-26] MEDS ORDERED: dexAMETHasone 10 MG in SYRINGE 0 ML IV SCH (08:00)
[2022-04-26] MEDS: ASCORBIC ACID 500 MG TAB PO SCH ×2 (08:39→16:54)
[2022-04-26] MEDS: DOCUSATE SODIUM 100 MG CAP PO SCH ×2 (08:39→21:03)
[2022-04-26] MEDS: lisinopril 40 MG TAB PO SCH (08:40)
[2022-04-26] MEDS: MULTIVITAMIN TAB PO SCH (08:41)
[2022-04-26] MEDS: METOPROLOL SUCC 25MG EXT REL TAB PO SCH (08:41)
[2022-04-26] MEDS ORDERED: MULTIVITAMIN TAB PO SCH (09:00)
[2022-04-26] MEDS: APIXABAN 2.5 MG TAB PO SCH ×2 (10:32→21:05)
--- NOTE | 2022-04-26 14:37 | Progress Notes ---
DATE OF PROGRESS NOTE: 04/26/2022 SUBJECTIVE: A 76-year-old white female postoperative day 1 from a left total hip replacement. She i s doing reasonably well. Rates her pain anywhere from a 6 to an 8. Therapy went okay. A bit slow. No other complaints. No chest pain or shortness of breath. Not feeling dizzy or lightheaded. OBJECTIVE: VITAL SIGNS: Temperature 36.8. Vital signs are stable. GENERAL: Shows a pleasant middle-aged female. She is lying in bed and looks pretty comfortable this afternoon. LUNGS: Clear to auscultation. HEART: Regular rate and rhythm. ABDOMEN: Soft, nontender, and nondistended. EXTREMITIES: Grossly neurovascularly intact except as follows. Examination of the left hip and leg reveals leg lengths to be equal. Her Prevena VAC dressings in pl delon. Fairly minimal swelling. Very large soft tissue envelope. She is neurologically intact. LABORATORY DATA: Hemoglobin 11.3. Hematocrit 34.9. Electrolytes are stable. ASSESSMENT: A 76-year-old white female postoperative day 1 from left total hip replacement, doing re asonably well. A very large patient and it is going to take a while to get around comfortably. PLAN: 1. DVT prophylaxis to include thigh-high TEDs and SCDs and we will start her back on her Eliquis at a prophylactic dose today. She will be discharged on the regular dose. 2. PT/OT and weight bear as tolerated. Left total hip protocol. 3. Pain control, doing okay with current pain regimen. 4. Wound VAC care as per the wound VAC. 5. Disposition: Plan to discharge to home. She can have family to assist in her care. Hopefully, get her home either or Sunday depending on how she does in therapy. Job ID: [id number]
[2022-04-26] MEDS: SENNA 8.6 MG TAB PO SCH (21:04)
[2022-04-26] MEDS: ATORVASTATIN 40 MG TAB PO SCH (21:05)
[2022-04-27] MEDS: ACETAMINOPHEN 500 MG TAB PO SCH (05:11)
--- NOTE | 2022-04-27 07:41 | Progress Notes ---
DATE OF SERVICE: 04/27/2022 SUBJECTIVE: A 76-year-old female postoperative day 2 from a left total hip replacement. She is doin g pretty well. Had a good night. Pain is controlled. No chest pain or shortness of breath. Not fe eling dizzy or lightheaded. OBJECTIVE: VITAL SIGNS: Temperature 36.7. Vital signs are stable. GENERAL: Shows a pleasant, elderly female. She is sitting up in bed and was talking to someone on t he phone when I went in this morning. EXTREMITIES: Examination of the left hip reveals the leg lengths to be equal. A large soft tissue e nvelope. Did have Prevena VAC dressings in place. No signs of problems. She is neurologically inta ct. Hip is located. ASSESSMENT: A 76-year-old female postoperative day 2 from a left hip replacement, doing pretty well. Pain is controlled. Hip is located. She is neurologically intact. PLAN: 1. DVT prophylaxis includes thigh-high TEDs, SCDs and back on her Eliquis. She is on current prophy lactic dose and discharged on her home dose. 2. PT/OT weightbear as tolerated. Left total hip protocol. 3. Pain control, doing okay with current pain regimen. 4. Disposition: Plan to discharge to home with some home health once adequately recovered and medic ally stable and getting around safely. Job ID: [id number]
[2022-04-27] MEDS: MULTIVITAMIN TAB PO SCH (08:21)
[2022-04-27] MEDS: DOCUSATE SODIUM 100 MG CAP PO SCH (08:22)
[2022-04-27] MEDS: APIXABAN 2.5 MG TAB PO SCH (08:22)
[2022-04-27] MEDS: lisinopril 40 MG TAB PO SCH (08:22)
[2022-04-27] MEDS: METOPROLOL SUCC 25MG EXT REL TAB PO SCH (08:22)
[2022-04-27] MEDS: ASCORBIC ACID 500 MG TAB PO SCH (08:23)
--- NOTE | 2022-05-02 06:40 | Discharge Summary ---
Date of Service May 02, 2022 Discharge Data Procedures Performed Operation Date: 04/25/22 07:00 Actual Procedures p Left Total Hip Arthroplasty--Uncemented(Left) - Sammy Bhatt MD Hospital Course (1) S/P total left hip arthroplasty: This is a 76 year old patient admitted on 04/25/22 and underwent total hip arthroplasty. She tolerated the procedure well and there were no complications. Transferred to the PACU post op and later to the orthopedic floor for further care. She was given ancef for antibiotic prophylaxis. She was also given GABBIE stockings, SCDs, and eliquis for DVT prophylaxis. Hemoglobin, hematocrit, and vital signs were monitored during her hospital stay and remained stable. Did not require any blood transfusions. There were no complications during her hospital stay. By post op day #2 the patient was tolerating a regular diet, pain was reasonably controlled with oral pain medicine, and she was participating in physical therapy. On post op day #2 the patient was discharged home and set up with home health care. She was given printed discharge instructions including prescriptions for extra strength tylenol, zofran, and tramadol Continue physical therapy, weight bearing as tolerated. Continue hip precautions. Continue GABBIE stockings. Follow up approximately 2 weeks post op or sooner if there are problems or concerns. Coding Level of Care Code None Diagnoses S/P total left hip arthroplasty Z96.642
== END 2022-04-27 13:32 | disposition home health service (06) ==
LOC: ASU 04:58 → 3E 04:58